=== PATIENT | male | born 1945 | race Hispanic/Latino ===

== ENCOUNTER 2018-03-26 15:16 | Inpatient (IN) | payer MEDICARE, OTHER ==
[~2018-03-26] VITALS: Ht 165.1 cm; Wt 72.6 kg
[~2018-03-26 15:16] MED LIST: CELEBREX100 MG PO; DOXAZOSIN MESYLA2 MG PO
[2018-03-26] MEDS ORDERED: FINASTERIDE5 MG PO (15:30)
[2018-03-26] MEDS ORDERED: SUPER B COMPLE1 EACH PO (15:30)
[2018-03-26] MEDS ORDERED: CITRACAL + BON1 EACH (15:30)
[2018-03-26] MEDS ORDERED: GLUCOSAMINE1000 MG (15:30)
[2018-03-26] MEDS ORDERED: ASPIRIN 81 MG CHEW TAB PO ONE (15:45)
[2018-03-26 16:09] LABS: BASOPHILS % 0.1 % (0.0-1.0); HEMATOCRIT 40.4 % (38.2-49.6); HEMOGLOBIN 12.7 g/dL (14.0-18.0); LYMPHOCYTES # (AUTO) 1.1 (1.0-3.2); LYMPHOCYTES % 14.6 % (18.0-39.1); MEAN CORPUSCULAR HGB CONC 31.4 g/dL (31-35); MONOCYTES # (AUTO) 0.4 (0.2-0.8); MONOCYTES % 5.1 % (4.4-11.3); NEUTROPHILS # (AUTO) 5.8 (2.1-6.9); NEUTROPHILS % 79.8 % (38.7-80.0); PLATELET COUNT 170 x10e3/uL (140-360); RED BLOOD COUNT 4.54 x10e6/uL (4.3-5.7); RED CELL DISTRIBUTION WIDTH 15.1 % (11.7-14.4)
--- NOTE | 2018-03-26 16:18 | Diagnostic Imaging Report ---
EXAMINATION: CHEST SINGLE (PORTABLE) COMPARISON: None INDICATION: ^CHEST PAIN ^[id number] ^1550 ^Y DISCUSSION: Frontal view of the chest obtained at 1553 hours. HEART AND MEDIASTINUM: The heart is top normal in size. There is mild aortic ectasia. LINES: None. LUNGS: The lungs are well inflated and clear. No pneumonia or pulmonary edema. PLEURA: No pleural effusion or pneumothorax. BONES AND SOFT TISSUES: Calcifications of the right rotator cuff, tendon suggestive of tendinopathy. Mild degenerative changes of the spine. The soft tissues are normal. IMPRESSION: No acute cardiopulmonary disease. Signed by: Dr. Divina Perdue MD on 03/26/2018 4:15 PM
[2018-03-26 16:21] LABS: INR 1.05; PROTHROMBIN TIME 14.7 seconds (11.9-14.5)
[2018-03-26 16:22] LABS: PARTIAL THROMBOPLASTIN TIME 31.1 seconds (23.8-35.5)
[2018-03-26 16:31] LABS: ALANINE AMINOTRANSFERASE 22 IU/L (0-55); ALBUMIN 3.8 g/dL (3.5-5.0); ALBUMIN/GLOBULIN RATIO 1.2 (0.8-2.0); ALKALINE PHOSPHATASE 41 IU/L (40-150); ANION GAP 12.1 mmol/L (8-16); BLOOD UREA NITROGEN 13 mg/dL (7-26); BUN/CREATININE RATIO 17 (6-25); CALCIUM 8.7 mg/dL (8.4-10.2); CARBON DIOXIDE 26 mmol/L (22-29); CHLORIDE 105 mmol/L (98-107); CREATINE KINASE 116 IU/L (30-200); CREATININE, SERUM 0.75 mg/dL (0.72-1.25); EST GLOMERULAR FILTRATION RATE > 60 ML/MIN (60-); GLUCOSE 95 mg/dL (74-118); POTASSIUM 4.1 mmol/L (3.5-5.1); SODIUM 139 mmol/L (136-145)
--- NOTE | 2018-03-26 17:24 | NUR ---
UA COLLECTED AND SENT TO LAB. PT'S HR DECREASING TO 38-39 BPM. PT REPORTS "NOT FEELING WELL" AND DIZZINESS. DR. VALENTIN AWARE OF BRADYCARDIA. NO NEW ORDERS AT THIS TIME.
[2018-03-26 17:31] LABS: BILIRUBIN,URINE NEGATIVE (NEGATIVE); CLARITY,URINE HAZY (CLEAR); COLOR,URINE YELLOW (YELLOW); KETONES,URINE NEGATIVE (NEGATIVE); LEUKOCYTE ESTERASE ,URINE NEGATIVE (NEGATIVE); NITRITE,URINE NEGATIVE (NEGATIVE); PROTEIN,URINE DIPSTICK NEGATIVE (NEGATIVE); URINE UROBILINOGEN 0.2 mg/dL (0.2 - 1)
[2018-03-26 17:32] LABS: BACTERIA,URINE FEW /HPF; EPITHELIAL CELLS,URINE FEW /LPF; RBC,URINE 0-5 /HPF (0-5); WBC,URINE (MAN) 0-5 /HPF (0-5)
--- NOTE | 2018-03-26 18:55 | NUR ---
PT TO BE ADMITTED TO HOSPITAL AND IS AWARE OF THIS. PENDING ADMISSION ORDERS AND ROOM ASSIGNMENT AT THIS TIME.
--- NOTE | 2018-03-26 19:11 | NUR ---
REPORT GIVEN TO LIAM NUNEZ HOUSING DEVELOPMENT SPECIALIST NURSE.
[2018-03-26 19:31] LABS: FREE THYROXINE INDEX 1.6541 (1.4-3.8); THYROID STIMULATING HORMONE 1.676 uIU/mL (0.350-4.940)
[2018-03-26] MEDS ORDERED: ONDANSETRON HCL INJ 2 MG/ML VIAL IV PRN (20:15)
[2018-03-26] MEDS ORDERED: SODIUM CHLORIDE 0.9% 1000ML 1,000 ML IV ONE ×2 (20:15→23:30)
--- OUTSIDE RECORDS SUMMARY | 2018-03-26 21:59 | XMS REPORT ---
Author Author [facility] Address Unknown Phone Unavailable Care Team Providers Care Aircraft Inspection Record Clerk Name Role Phone Mina VALENTIN Unavailable Unavailable Problems This patient has no known problems. Allergies, Adverse Reactions, Alerts This patient has no known allergies or adverse reactions. Medications This patient has no known medications. Results Test Description Test Time Test Comments Text Results Atomic Results Result Comments CHEST SINGLE (PORTABLE) 2018-03-26 16:14:00 [facility] [address] [place] [address] Patient Name: ANKUR ALVARADO MR #: [id number] : 1945 Age/Sex: 72/M Req #: [id number] Adm Physician: Ordered by: WILLIE VALENTIN MD Report #: [id number] Location: ER Room/Bed: Procedure: [id number] DX/CHEST SINGLE (PORTABLE) Exam Date: 03/26/18 Exam Time: 1550 REPORT STATUS: Signed EXAMINATION: CHEST SINGLE (PORTABLE) COMP ARISON: None INDICATION: CHEST PAIN [id number] 1550 Y DISCUSSION: Frontal view of the chest obtained at 1553 hours. HEART AND MEDIASTINUM: The heart is top normal in size. There is mild aortic ectasia. LINES: None. LUNGS: The lungs are well inflated and clear. No pneumonia or pulmonary edema. PLEURA: No pleural effusion or pneumothorax. BONES AND SOFT TISSUES: Calcifications of the right rotator cuff, tendon suggestive of tendinopathy. Mild degenerative changes of the spine. The soft tissues are normal. IMPRESSION: No acute cardiopulmonary disease. Signed by: Dr. Norris Perdue MD on 03/26/2018 4:15 PM Dictated By: NORRIS PERDUE MD [id number] Transcribed By: TAMMIE on 03/26/18 1614 COPY TO: WILLIE VALENTIN MD
[2018-03-26 22:00] VITALS: BP 147/67
--- NOTE | 2018-03-26 22:00 | NUR ---
Patient received from ER via W/C accompanied by daughter. Admission history and Initial physical assessment conducted. Patient is AAO x 3. Patient had no complaints of pain, dizziness or respiratory distress. Patient oriented to room, call light and plan of care. Bed locked and in lowest position. Bed rails up x 2 with bed alarm activated. Patient instructed to call for assistance when needed. Call light within reach.
--- NOTE | 2018-03-27 00:30 | NUR ---
Blood specimen sent to lab for analysis of cardiac enzymes.
[2018-03-27 01:24] LABS: CREATINE KINASE MB 2.5 ng/mL (0-5.0)
--- NOTE | 2018-03-27 06:05 | NUR ---
Dr. Art notified of "Stat Consult' for patient. Reason: Bradycardia.
--- NOTE | 2018-03-27 06:06 | NUR ---
Dr. Mead paged for "Stat Consult". Reason: Bradycardia and Pacemaker Evaluation. Awaiting call back.
--- NOTE | 2018-03-27 07:14 | NUR ---
Shift report given to oncoming nurse. Patient in stable condition.
[2018-03-27 08:49] VITALS: BP 131/60
[2018-03-27 12:26] VITALS: BP 137/63
--- NOTE | 2018-03-27 16:35 | Consultation ---
DATE OF CONSULTATION: March 27, 2018 CARDIOLOGY CONSULTATION REFERRING PHYSICIANS 1. Dr. Virginia Rosales. 2. Dr. Irving Corea. REASON FOR CONSULTATION: Presyncope and bradycardia. HISTORY OF PRESENT ILLNESS: Mr. George is a 72-year-old man with history of rheumatoid arthritis and BPH who presents with episodes of lightheadedness, worse with standing up and ambulation, noted to have heart rate in the 30s to 40s with marked sinus bradycardia noted on EKG. He denies any use of chronotropic negative medications. Overnight, he has remained with persistent bradycardia. He has no current complaints. Denies any chest pain or shortness of breath. REVIEW OF SYSTEMS: A 12-system review is negative except for as noted above. ALLERGIES: NO KNOWN DRUG ALLERGIES. PAST MEDICAL HISTORY: Significant for BPH and rheumatoid arthritis. SOCIAL HISTORY: Denies smoking, alcohol, or drugs. FAMILY HISTORY: Noncontributory. PHYSICAL EXAMINATION VITAL SIGNS: Temperature 98 degrees, heart rate 47, blood pressure 131/60, respiratory rate 18, O2 sat 98% on room air and telemetry has marked sinus bradycardia. BMI 25.2. GENERAL: In no acute distress, alert. NECK: No JVD. CHEST: Clear to auscultation. CARDIOVASCULAR: Regular rate and rhythm. Normal S1 and S2. No S3, no S4. No murmurs, no rubs. ABDOMEN: Soft, nontender, nondistended. EXTREMITIES: Warm extremities. No edema. MEDICATIONS: Reviewed, p.r.n. Zofran STUDIES: Reviewed. EKG as above. Potassium 4.1, sodium 139, chloride 105, bicarbonate 26, BUN 13, creatinine 0.76, glucose 95. White blood cells 9.3, hemoglobin 12.7, and platelets 170. PT 14.7, PTT 31.1, INR 1.05. AST 24, ALT 22, total bilirubin 0.67, and alk phos 41. ASSESSMENT 1. Symptomatic marked sinus bradycardia. 2. Benign prostatic hypertrophy. 3. Rheumatoid arthritis. RECOMMENDATIONS 1. Avoid chronotropic negative medications. 2. Telemetry while in-house. 3. EP has been consulted for consideration of pacemaker placement. 4. Atropine p.r.n. 5. Obtain electrocardiogram. Job#: [id number] DANIEL
[2018-03-27] MEDS ORDERED: ATROPINE SULFATE INJ 0.4 MG/ML VIAL IV PRN (16:45)
[2018-03-27 17:26] VITALS: BP 138/71
--- NOTE | 2018-03-27 19:30 | NUR ---
Patient received sitting up in bed. AAO x 3. Patient had no complaints of pain. Respirations even and non-labored. Call light within reach.
--- NOTE | 2018-03-27 19:32 | Consultation ---
DATE OF CONSULTATION: March 27, 2018 REASON FOR CONSULTATION: Symptomatic bradycardia. CHIEF COMPLAINT: Bradycardia, symptomatic. Mr. George is a pleasant 72-year-old gentleman who presented with profound dizziness and bradycardia. No other cardiac history. His heart rate was in the 40s for the most part. Cardiology and EP has been consulted. PAST MEDICAL HISTORY: Arthritis, dizziness, sinus bradycardia. SOCIAL HISTORY: Lives with . No drugs or smoking. FAMILY HISTORY: Negative for sudden or atrial fibrillation. REVIEW OF SYSTEMS: As above and otherwise negative for fevers, chills, loss of vision, blurry vision, ear pain, ear discharge, headache, numbness, chest pain, palpitation, cough, sputum, nausea, vomiting, dysuria, frequency, rash, bruise, bleeding, clots, anxiety, depression, heat or cold intolerance. PHYSICAL EXAMINATION VITAL SIGNS: Blood pressure 148/79, heart rate is currently 55 beats per minute. GENERAL: Patient is lying in bed, in no apparent distress. NECK: No lymphadenopathy. Thyroid exam is normal. CARDIOVASCULAR: S1, S2. LUNGS: Clear bilaterally. ABDOMEN: Soft, benign. EXTREMITIES: Warm and dry. NEURO: Nonfocal. SKIN: No new rash. PSYCH: No anxiety or depression. EKG shows sinus bradycardia. AZ interval 146. ASSESSMENT AND PLAN: A 72-year-old gentleman with sick sinus syndrome, severe symptomatic bradycardia, not on any AV henok blocking agents. He will benefit from a pacemaker. I will discuss this with Dr. Art, which I think he is on-board. I discussed this with patient and his and explained the risks and benefits. We will set up for dual-chamber permanent pacemaker. Thank you very much. Job#: [id number] SARY
[2018-03-27 20:00] VITALS: BP 118/58
[2018-03-28] VITALS (8 sets, daily range): BP systolic 118–145; BP diastolic 58–67
[2018-03-28] MEDS ORDERED: FENTANYL CITRATE/PF 100MCG/2 ML INJ ONE (15:51)
[2018-03-28] MEDS ORDERED: SODIUM CHLORIDE 0.9% 500ML 500 ML ONE (15:51)
[2018-03-28] MEDS ORDERED: LIDOCAINE HCL 1% LOCAL INJ 20 ML VIAL ONE (15:51)
[2018-03-28] MEDS ORDERED: MIDAZOLAM HCL 2 MG/2 ML VIAL ONE (15:51)
[2018-03-28] MEDS ORDERED: SODIUM CHLORIDE 0.9% 1000ML 2,000 ML ONE (15:51)
[2018-03-28] MEDS ORDERED: BACITRACIN 50,000 UNIT VIAL ONE (15:54)
--- NOTE | 2018-03-28 16:09 | NUR ---
Patient to process laboratory specialist at this time.
[2018-03-28] MEDS ORDERED: IOPAMIDOL 300MG/ML 50ML INFUS..BTL IV ONE (16:23)
[2018-03-28] MEDS ORDERED: SODIUM CHLORIDE 0.9% 50ML 50 ML ONE (16:24)
[2018-03-28] MEDS ORDERED: CEFAZOLIN SOD 1 GM VIAL ONE (16:24)
[2018-03-28] MEDS ORDERED: HYDRALAZINE HCL 20 MG/ML VIAL ONE (16:47)
--- NOTE | 2018-03-28 17:02 | Operative Report ---
DATE OF PROCEDURE: March 28, 2018 REASON FOR PROCEDURE: Sick sinus syndrome, severe symptomatic nonreversible bradycardia. PROCEDURE PERFORMED: Dual chamber permanent pacemaker placement. SEDATION: Moderate sedation with 2 of Versed and 50 of fentanyl for 45 minutes while O2 saturation and blood pressure were being monitored by me and the circulating nurse. PROCEDURE IN DETAIL: The patient was brought into the lab in a fasting state. Left chest prepped and draped in a sterile fashion. Conscious sedation was administered. Vancomycin 1 g was given. A 3 cm skin incision was made. Subcutaneous tissue and pocket were formed. Two guidewires were inserted in the axillary vein using the modified Seldinger technique. No complications. Pacing lead advanced to the RV apex and fixed in place. Sensing 6. Threshold 1.2. Impedance 580 Ohms. RV lead advanced to the right atrial appendage. Sensing 2.1. Threshold 1.5. Impedance 450 Ohms. Both leads sutured to the fascia with 0 silk. Pocket profusely irrigated with antibiotic solution. Leads were connected to [employer]icos dual chamber permanent pacemaker, serial number [id number]. Generator placed inside the pocket and sutured to the fascia using 0 silk. Subcutaneous tissue was approximated with 2-0 Vicryl in 2 layers. Skin was approximated using 4-0 Monocryl and Dermabond. The patient tolerated the procedure well. No complications. CONCLUSION: Dual chamber permanent pacemaker placement with moderate sedation. Clinic followup in 2 weeks. Job#: [id number] RI MTDD
--- NOTE | 2018-03-28 18:10 | NUR ---
Patient received back from the center medical and lab director at this time. Arm sling in place on the left arm. Dressing to left upper chest is CDI. Patient has no complaints of pain. patient immediately went to the restroom with wifes assistance. Patient is AOx3. Educated patient on arm care and sling. Patient and verbalized understanding.
--- NOTE | 2018-03-28 19:00 | NUR ---
Received pt sitting up in chair with family at bedside. Has dressing to L chest c,d,i abd L arm sling. Denies pain at this time. No s/s of resp distress at this time. Call light within reach and instructed to call for assistance.
--- NOTE | 2018-03-28 20:42 | Diagnostic Imaging Report ---
EXAMINATION: CHEST SINGLE (PORTABLE) COMPARISON: 03/26/2018. INDICATION: ^Post Dual Chamber PPM ^[id number] ^1810 DISCUSSION: Interval placement of a dual lead left-sided cardiac pacemaker. HEART AND MEDIASTINUM: The heart is top normal in size. There is mild aortic ectasia. LINES: None. LUNGS: The lungs are well inflated and clear. No pneumonia or pulmonary edema. PLEURA: No pleural effusion or pneumothorax. BONES AND SOFT TISSUES: Calcifications of the right rotator cuff, tendon suggestive of tendinopathy. Mild degenerative changes of the spine. The soft tissues are normal. IMPRESSION: Status post left sided dual lead cardiac pacemaker. No acute thoracic abnormality. Signed by: Dr. Tabby Go M.D. on 03/28/2018 8:39 PM
--- NOTE | 2018-03-28 20:50 | Progress Note ---
DATE: CARDIOLOGY PROGRESS NOTE SUBJECTIVE: No complaints. Pacemaker today. PHYSICAL EXAMINATION: VITAL SIGNS: Temperature 96.7, heart rate 73, blood pressure 126/65, respiratory rate 18, O2 sat 99%. GENERAL: In no acute distress. NECK: No JVD. CHEST: Clear to auscultation. CARDIOVASCULAR: Regular rate and rhythm. Normal S1 and S2. ABDOMEN: Soft. EXTREMITIES: No edema. Warm distal extremities. MEDICATIONS: Reviewed. On Zofran and atropine p.r.n. STUDIES: Reviewed. Creatinine 0.7. Hemoglobin 12, white blood cells 7, platelets 170,000. Normal transaminases. ASSESSMENT: 1. Symptomatic marked sinus bradycardia, undergoing pacemaker placement today. 2. Rheumatoid arthritis reported. 3. Benign prostatic hypertrophy. RECOMMENDATIONS: Placement for pacemaker ongoing today. Will follow up with interrogation and follow up x-ray postprocedure. If all looks well, anticipate discharge tomorrow. Job#: [id number]
--- NOTE | 2018-03-29 00:12 | NUR ---
Pt in bed with eyes closed resting well. Family at bedside. Call light within reach.
[2018-03-29 00:55] VITALS: BP 152/71
[2018-03-29 06:41] VITALS: BP 148/74
[2018-03-29 08:00] VITALS: BP 114/58
[2018-03-29 08:19] VITALS: BP 114/58
[2018-03-29 13:09] VITALS: BP 133/74
--- NOTE | 2018-03-29 15:14 | Discharge Summary ---
HOSPITAL COURSE: Mr. George is a 72-year-old man with history of arthritis and sinus bradycardia, who was being followed up by [employer]. A few days before admission, he started feeling very dizzy, so he decided to come to the emergency room where he was found to be very bradycardic. He was seen by [employer], had a permanent pacemaker placed yesterday and the plan is to discharge him home if it is okay with [employer] today. PHYSICAL EXAM GENERAL: He is awake and alert. He is feeling better. VITAL SIGNS: Temperature is 97.1, blood pressure 133/74. HEART: Regular rate, 60 per minute. LUNGS: Clear to auscultation. ABDOMEN: Soft. Pacemaker area is under dressing. BLOOD WORK: Potassium 4.1, creatinine 0.75, glucose is 95. White count 7.31, hemoglobin 12.7, hematocrit 40.4. DISCHARGE DIAGNOSES 1. Sick sinus syndrome, status post pacemaker placement. 2. Severe symptomatic bradycardia, status post pacemaker. 3. Dizziness, resolved. 4. Arthritis. PLAN AT THE PRESENT TIME: To discharge the patient home if okay with consultants. He is going to be on cephalexin 500 mg 3 times a day for 5 days and Tylenol No. 3 for pain. He needs followup with me in 1 week. Follow up with [employer] operations as directed by him. He is to call me or come back to the emergency room if any recurrent problem. Please see home medication reconciliation list. All this was discussed with patient. All questions were answered to satisfaction. Job#: [id number] MIRZA
[2018-03-29 16:40] VITALS: BP 142/65
[2018-03-29] MEDS ORDERED: TYLENOL WITH C1 EACH PO (17:50)
[2018-03-29] MEDS ORDERED: CEPHALEXIN500 MG PO (17:50)
--- NOTE | 2018-03-30 00:11 | Progress Note ---
DATE: March 29, 2018 CARDIOLOGY PROGRESS NOTE SUBJECTIVE: No complaints today. Status post pacemaker. Feels much better. OBJECTIVE VITAL SIGNS: Temperature 98 degrees. Heart rate 61, blood pressure 142/65, respiratory rate 18, O2 sat 93%. GENERAL: In no acute distress, alert. NECK: No JVD. CHEST: Clear to auscultation. CARDIOVASCULAR: Regular rate and rhythm. Normal S1, S2. No S3 or S4. ABDOMEN: Soft, nontender. EXTREMITIES: No edema. SKIN: Pacemaker pocket site looks okay. CARDIOVASCULAR MEDICATIONS: Reviewed. Atropine p.r.n. can be discontinued now. LABORATORY STUDIES: Reviewed. Potassium 4.1, creatinine 0.7. Hemoglobin 12, platelets 170,000, white blood cell 7.3. INR 1. ASSESSMENT 1. Symptomatic marked sinus bradycardia, now status post dual-chamber permanent pacemaker placement. 2. Rheumatoid arthritis. 3. BPH. RECOMMENDATIONS: Okay to discharge from a cardiovascular standpoint. Pacemaker has been interrogated today and functioning well. The patient has noted symptomatic improvement status post pacemaker placement. No pneumothorax on chest x-ray. Outpatient followup with EP in 2 weeks and cardiology in 6 to 8 weeks. Job#: [id number]
== END 2018-03-29 18:09 | disposition home or self-care (01) | DRG 244 ==
LOC: ER 15:16 → ERHOLD 21:55 → MED/SURG2 22:07
PROVIDERS: ADMIT Internal Medicine; ATTEND Internal Medicine
PROC: 0JH606Z Insertion of Pacemaker, Dual Chamber into Chest Subcutaneous Tissue and Fascia, Open Approach (ICD-10-PCS; principal; 2018-03-28)
PROC: 02H63JZ Insertion of Pacemaker Lead into Right Atrium, Percutaneous Approach (ICD-10-PCS; 2018-03-28)
PROC: 02HK3JZ Insertion of Pacemaker Lead into Right Ventricle, Percutaneous Approach (ICD-10-PCS; 2018-03-28)
DX: I49.5 Sick sinus syndrome (principal); R00.1 Bradycardia, unspecified; M06.9 Rheumatoid arthritis, unspecified; M19.90 Unspecified osteoarthritis, unspecified site
CPT/HCPCS: 33208; 36415; 71045; 80053; 81001; 82550; 82553; 83880; 84436; 84443; 84479; 84484; 85025; 85610; 85730; 93005; 99283; C1785; C1898; J0360; J0690; J2001; J2250; J7030; J7040

== ENCOUNTER 2018-05-06 19:45 | Emergency (ER) | payer MEDICARE ==
[~2018-05-06] VITALS: Ht 165.1 cm; Wt 72.6 kg
[~2018-05-06 19:45] MED LIST changes: +CEPHALEXIN500 MG PO; +CITRACAL + BON1 EACH; +FINASTERIDE5 MG PO; +GLUCOSAMINE1000 MG; +SUPER B COMPLE1 EACH PO; +TYLENOL WITH C1 EACH PO
--- OUTSIDE RECORDS SUMMARY | 2018-05-06 19:50 | XMS REPORT | Summary of Care ---
Author Author [facility] Address Unknown Phone Unavailable Encounter DAVE Calvillo(ANA) [id number] Date(s): 11/19/14 - 12/18/14 [facility] Final: Osteoarthrosis, Localized, Primary, Involving Lower Leg Final: Stiffness of Joint, Not Elsewhere Classified, Involving Lower Leg Final: Knee Joint Replaced by Other Means Final: Muscle Weakness (Generalized) Final: Abnormality of Gait Final: Edema Discharge Disposition: Home Attending Physician: Mehdi Baron Vital Signs No data available for this section Problem List Condition Effective Dates Status Health Status Informant Knee joint Active pain(Confirmed)1 Osteoarthritis(Confi Resolved rmed) Prostate Resolved enlargement(Confirme d) Seasonal Resolved allergies(Confirmed) 1left knee Allergies, Adverse Reactions, Alerts Substance Reaction Severity Status NKDA Active Medications No data available for this section Results No data available for this section Immunizations Vaccine Date Refusal Reason pneumococcal 23-valent vaccine 09/12/14 Procedures Procedure Date Related Diagnosis Body Site Meniscectomy of knee Social History Social History Type Response Alcohol Never Smoking Status Never smoker; Exposure to Tobacco Smoke None; Cigarette Smoking Last 365 Days No; Reg Smoking Cessation Counseling No Assessment and Plan No data available for this section
--- OUTSIDE RECORDS SUMMARY | 2018-05-06 19:50 | XMS REPORT | Summary of Care ---
Author Author [facility] Address Unknown Phone Unavailable Encounter HQ Encntr_jey(FIN) [id number] Date(s): 10/19/14 - 11/17/14 [facility] Discharge Disposition: Home Attending Physician: Mehdi Baron [...]
--- OUTSIDE RECORDS SUMMARY | 2018-05-06 19:50 | XMS REPORT | Continuity of Care Document ---
Author Author [facility] Interface Address Unknown Phone Unavailable Problems Problem Status Onset Date Classification Date Reported Comments Source CELLULITS TO LOWER EXTREMITY Active 09/19/2014 [facility] PAIN Active 09/18/2014 [facility] [id number] Active 08/21/2014 [facility] UNK Active 08/21/2014 [facility] Final: Osteoarthrosis, Localized, Primary, Involving Lower Leg 12/21/2014 [facility] Final: Stiffness of Joint, Not Elsewhere Classified, Involving Lower Leg 12/21/2014 [facility] Final: Knee Joint Replaced by Other Means 12/21/2014 [facility] Final: Muscle Weakness 12/21/2014 [facility] Final: Abnormality of Gait 12/21/2014 [facility] Final: Edema 12/21/2014 [facility] Knee joint pain<sup>1</sup> Active Problem 01/25/2015 left knee [facility] Osteoarthritis Resolved Problem 01/25/2015 [facility] Prostate enlargement Resolved Problem 01/25/2015 [facility] Seasonal allergies Resolved Problem 01/25/2015 [facility] Bradycardia Active Problem 03/30/2018 [facility] Weakness Active Problem 03/30/2018 [facility] CELLULITIS OF LEG Active [facility] LT KNEE Active [facility] S/P TKR Active [facility] LOC PRIM OSTEOART-L/LEG Active [facility] SWELLING OF LIMB Active [facility] Medications Medication Details Route Status Patient Instructions Ordering Provider Order Date Source Sodium Chloride 0.9% IV IV, 30 ml/hr, PRN, PRN Blood Transfusion, Start date: 09/19/14 22:22:00, Duration: 1, 100 ml No Longer Active 09/20/2014 [facility] normal saline 0.9% IV 100 mL 100 mL, Rate: 100 ml/hr, Infuse over: 1 hr, Route: IV, Dosing Weight 73.636 kg, Total Volume: 100, Priority: Routine, Start date: 09/19/14 22:17:00, Duration: 1 doses or times, Stop date: 09/19/14 23:16:00 Inactive 09/20/2014 [facility] Diphenhydramine 25 mg, 1 tab, Route: PO, Drug form: TAB, TID, Dosing Weight 73.636, kg, PRN Allergic reaction, Start date: 09/19/14 21:25:00, Duration: 30 day, Stop date: 10/19/14 21:24:00 No Longer Active 09/20/2014 [facility] Ambien 5 mg, 1 tab, Route: PO, Drug form: TAB, Bedtime, PRN Sleep, Start date: 09/19/14 21:21:00, Duration: 30 day, Stop date: 10/19/14 21:20:00Notes: (Same As: Ambien) No Longer Active 09/20/2014 [facility] Clindamycin 900 mg, 50 mL, Route: IVPB, Drug form: INJ, [id number], Dosing Weight 73.636, kg, Start date: 09/19/14 21:00:00, Duration: 30 day, Stop date: 10/19/14 13:00:00 No Longer Active 09/20/2014 [facility] Vancomycin 1 gm, 200 mL, Route: IVPB, Drug form: INJ, [id number], Dosing Weight 73.636, kg, Start date: 09/19/14 21:00:00, Duration: 30 day, Stop date: 10/19/14 9:00:00Notes: TIME CRITICAL MEDICATION No Longer Active 09/20/2014 [facility] Lovenox 30 mg, 0.3 mL, Route: SUB-Q, Drug form: INJ, [id number], Dosing Weight 73.636, kg, Start date: 09/19/14 21:00:00, Duration: 30 day, Stop date: 10/19/14 9:00:00Notes: (Same as: Lovenox) No Longer Active 09/20/2014 [facility] Dilaudid 1 mg, 1 mL, Route: IV, Drug form: INJ, Q6H, Dosing Weight 73.636, kg, PRN Pain Score 6-10, Start date: 09/19/14 20:48:00, Duration: 30 day, Stop date: 10/19/14 20:47:00 No Longer Active 09/20/2014 [facility] Valium 5 mg, 1 mL, Route: IV, Drug form: INJ, Q6H, Dosing Weight 73.636, kg, PRN Spasm, Start date: 09/19/14 20:42:00, Duration: 30 day, Stop date: 10/19/14 20:41:00Notes: (Same as: Valium) No Longer Active 09/20/2014 [facility] Lunesta 3 mg, Route: PO, Bedtime, Dosing Weight 73.636, kg, PRN as needed for insomnia, Start date: 09/19/14 20:41:00, Duration: 30 day, Stop date: 10/19/14 20:40:00 Inactive 09/20/2014 [facility] Acetaminophen 325 MG / Hydrocodone Bitartrate 7.5 MG Oral Tablet [[place] 7.5/325] 2 tab, Route: PO, Drug Form: TAB, Dosing Weight 73.636, kg, Q6H, PRN Pain Score 7-10, Start date: 09/19/14 20:38:00, Duration: 30 day, Stop date: 10/19/14 20:37:00Notes: Same as [place] 325-7.5mg Do not exceed 4gm/day of acetaminophen. No Longer Active 09/20/2014 [facility] Acetaminophen 325 MG / Hydrocodone Bitartrate 7.5 MG Oral Tablet [[place] 7.5/325] 1 tab, Route: PO, Drug Form: TAB, Dosing Weight 73.636, kg, Q6H, PRN Pain Score 1-5, Start date: 09/19/14 20:37:00, Duration: 30 day, Stop date: 10/19/14 20:36:00Notes: Same as [place] 325-7.5mg Do not exceed 4gm/day of acetaminophen. No Longer Active 09/20/2014 [facility] Dilaudid 1 mg, 1 mL, Route: IV, Drug form: INJ, Q4H, Dosing Weight 73.636, kg, PRN Pain Score 1-5, Start date: 09/19/14 20:36:00, Duration: 30 day, Stop date: 10/19/14 20:35:00 No Longer Active 09/20/2014 [facility] cefepime 1 gm, Route: IVPB, [id number], Dosing Weight 72.273, kg, (CrCl >/=50 ml/min), Start date: 09/12/14 20:00:00, Duration: 30 day, Stop date: 10/12/14 12:00:00Notes: (Same As: Maxipime) MEDICATION WASTE Product Size: 1000 mg Product Wasted: ___ mg No Longer Active 09/13/2014 [facility] Dilaudid 1 mg, 1 mL, Route: IV, Drug form: INJ, Q4H, Dosing Weight 72.273, kg, PRN Pain Score 7-10, Start date: 09/12/14 12:43:00, Duration: 30 day, Stop date: 10/12/14 12:42:00 No Longer Active 09/12/2014 [facility] Acetaminophen 325 MG / Hydrocodone Bitartrate 7.5 MG Oral Tablet [[place] 7.5/325] 2 tab, Route: PO, Drug Form: TAB, Dosing Weight 72.273, kg, Q4H, PRN Pain Score 7-10, Start date: 09/12/14 12:43:00, Duration: 30 day, Stop date: 10/12/14 12:42:00 Inactive 09/12/2014 [facility] pneumococcal capsular polysaccharide type 1 vaccine / pneumococcal capsular polysaccharide type 10A vaccine / pneumococcal capsular polysaccharide type 11A vaccine / pneumococcal capsular polysaccharide type 12F vaccine / pneumococcal capsular polysacchar 0.5 mL, Route: IM, Drug Form: INJ, Daily, Start date: 09/12/14 9:00:00, Duration: 1 doses or times, Stop date: 09/12/14 9:00:00Notes: (Same as: Pneumovax 23) Refrigerate Inactive 09/12/2014 [facility] Lunesta 3 mg, Route: PO, Bedtime, Dosing Weight 72.273, kg, Start date: 09/11/14 21:00:00, Duration: 30 day, Stop date: 10/10/14 21:00:00 Inactive 09/12/2014 [facility] Enoxaparin 30 mg, 0.3 mL, Route: SUB-Q, Drug form: INJ, [id number], Dosing Weight 72.273, kg, Start date: 09/11/14 21:00:00, Duration: 30 day, Stop date: 10/11/14 9:00:00Notes: (Same as: Lovenox) No Longer Active 09/12/2014 [facility] Ambien 5 mg, 1 tab, Route: PO, Drug form: TAB, Bedtime, PRN Sleep, Start date: 09/11/14 17:49:00, Duration: 30 day, Stop date: 10/11/14 17:48:00Notes: (Same As: Ambien) No Longer Active 09/11/2014 [facility] ceFAZolin (SCIP) 1 gm, 100 mL, Route: IVPB, Drug form: INJ, [id number], Dosing Weight 72.273, kg, Start date: 09/11/14 14:00:00, Duration: 3 doses or times, Stop date: 09/12/14 2:00:00 No Longer Active 09/11/2014 [facility] Docusate 100 mg, 1 cap, Route: PO, Drug form: CAP, BID, Dosing Weight 72.273, kg, Start date: 09/11/14 9:00:00, Duration: 30 day, Stop date: 10/10/14 17:00:00Notes: (Same as: Colace) (Do Not Crush) No Longer Active 09/11/2014 [facility] Enoxaparin 30 mg, Route: SUB-Q, Drug form: INJ, [id number], Dosing Weight 72.273, kg, Start date: 09/11/14 9:00:00, Duration: 30 day, Stop date: 10/10/14 21:00:00 Inactive 09/11/2014 [facility] Morphine 4 mg, Route: IVP, Q5Min, Dosing Weight 72.273, kg, PRN Pain Score 7-10, Start date: 09/11/14 8:49:00, Duration: 3 doses or times, Stop date: Limited # of times Inactive 09/11/2014 [facility] Meperidine 12.5 mg, Route: IVP, Q30Min, Dosing Weight 72.273, kg, PRN Other -See Comment, For shivering, Start date: 09/11/14 8:49:00, Duration: 2 doses or times, Stop date: Limited # of times Inactive 09/11/2014 [facility] Diphenhydramine 12.5 mg, Route: IVP, Drug form: INJ, Q6H, Dosing Weight 72.273, kg, PRN Itching, Start date: 09/11/14 8:49:00, Duration: 30 day, Stop date: 10/11/14 8:48:00 Inactive 09/11/2014 [facility] Glycopyrrolate 0.2 mg, Route: IVP, Q5Min, Dosing Weight 72.273, kg, PRN Bradycardia, Start date: 09/11/14 8:49:00, Duration: 3 doses or times, Stop date: Limited # of times Inactive 09/11/2014 [facility] Naloxone 0.04 mg, Route: IVP, Q2MIN, Dosing Weight 72.273, kg, PRN Narcotic Reversal, Start date: 09/11/14 8:49:00, Duration: 8 doses or times, Stop date: Limited # of times Inactive 09/11/2014 [facility] Flumazenil 0.2 mg, Route: IVP, PRN, Dosing Weight 72.273, kg, PRN Benzodiazepine Reversal, Initial dose, Start date: 09/11/14 8:49:00, Duration: 30 day, Stop date: 10/11/14 8:48:00 Inactive 09/11/2014 [facility] Promethazine 6.25 mg, Route: IVPB, ONCE, Dosing Weight 72.273, kg, PRN Nausea & Vomiting, Start date: 09/11/14 8:49:00 Inactive 09/11/2014 [facility] Ondansetron 4 mg, Route: IVP, ONCE, Dosing Weight 72.273, kg, PRN Nausea & Vomiting, Start date: 09/11/14 8:49:00 Inactive 09/11/2014 [facility] Hydromorphone 0.5 mg, Route: IVP, Q5Min, Dosing Weight 72.273, kg, PRN Pain Score 7-10, Start date: 09/11/14 8:49:00, Duration: 4 doses or times, Stop date: Limited # of times Inactive 09/11/2014 [facility] Fentanyl 25 microgram, Route: IVP, Q5Min, Dosing Weight 72.273, kg, PRN Pain Score 4-6, Start date: 09/11/14 8:49:00, Duration: 4 doses or times, Stop date: Limited # of times Inactive 09/11/2014 [facility] Ketorolac 30 mg, Route: IVP, ONCE, Dosing Weight 72.273, kg, Start date: 09/11/14 8:49:00, Duration: 1 doses or times, Stop date: 09/11/14 8:49:00 Inactive 09/11/2014 [facility] Hydralazine 10 mg, Route: IVP, Q20Min, Dosing Weight 72.273, kg, PRN Elevated BP, Start date: 09/11/14 8:49:00, Duration: 2 doses or times, Stop date: Limited # of times Inactive 09/11/2014 [facility] Oxycodone 10 mg, Route: PO, Drug form: TAB, Q4H, Dosing Weight 72.273, kg, PRN Pain Score 7-10, Start date: 09/11/14 8:49:00, Duration: 30 day, Stop date: 10/11/14 8:48:00 Inactive 09/11/2014 [facility] Metoprolol 1 mg, Route: IVP, Q5Min, Dosing Weight 72.273, kg, PRN Other -See Comment, Start date: 09/11/14 8:49:00, Duration: 5 doses or times, Stop date: Limited # of times Inactive 09/11/2014 [facility] Hydromorphone 15 mg, 30 mL, Route: IV, Initial Loading Dose: 0 mg, [employer] FINAL Dose: 0.2 mg, [employer] FINAL Lockout: 8 minutes, Continuous Basal Rate: 0 mg, 4 Hour Limit (In MG): 6, Drug Form: INJ, Continuous, Start date: 09/11/14 8 :30:00, Duration: 30 day, Stop date: 10/11/14 8:29:00Notes: (Same as: Dilaudid) conc=0.5 mg/ml Hydromorphone [employer] FINAL Dose: ;Delay: ;Basal: No Longer Active 09/11/2014 [facility] Naloxone 0.04 mg, 0.1 mL, Route: IVP, Drug form: INJ, Q2MIN, Dosing Weight 72.273, kg, PRN Narcotic Reversal, Start date: 09/11/14 8:30:00, Duration: 30 day, Stop date: 10/11/14 8:29:00Notes: Same as Narcan No Longer Active 09/11/2014 [facility] Diphenhydramine 12.5 mg, 0.5 tab, Route: PO, Drug form: TAB, Q6H, Dosing Weight 72.273, kg, PRN Itching, Start date: 09/11/14 8:30:00, Duration: 30 day, Stop date: 10/11/14 8:29:00 No Longer Active 09/11/2014 [facility] Al hydroxide/Mg hydroxide/simethicone 200 mg-200 mg-20 mg/5 mL oral suspension 30 mL, Route: PO, Drug Form: SUSP, Dosing Weight 72.273, kg, Q4H, PRN Indigestion, Start date: 09/11/14 8:30:00, Duration: 30 day, Stop date: 10/11/14 8:29:00Notes: (aluminum hydroxide-magnesium hyd-simethicone [phone]/5ml 30 ml ud CANDIS) No Longer Active 09/11/2014 [facility] Ondansetron 4 mg, 2 mL, Route: IVP, Drug form: INJ, Q8H, Dosing Weight 72.273, kg, PRN Nausea & Vomiting, Start date: 09/11/14 8:30:00, Duration: 30 day, Stop date: 10/11/14 8:29:00Notes: (Same as: Zofran) MEDICATION WASTE Product Size: 4 mg Product Wasted: ___ mg No Longer Active 09/11/2014 [facility] Acetaminophen 325 MG / Hydrocodone Bitartrate 7.5 MG Oral Tablet [[place] 7.5/325] 1 tab, Route: PO, Drug Form: TAB, Dosing Weight 72.273, kg, Q4H, PRN Pain Score 4-6, Start date: 09/11/14 8:30:00, Duration: 30 day, Stop date: 10/11/14 8:29:00Notes: Same as [place] 325-7.5mg Do not exceed 4gm/day of acetaminophen. No Longer Active 09/11/2014 [facility] Tylenol 650 mg, 2 tab, Route: PO, Drug form: TAB, Q6H, Dosing Weight 72.273, kg, PRN For Temp > 100.4 F, Start date: 09/11/14 8:30:00, Duration: 30 day, Stop date: 10/11/14 8:29:00Notes: Do not exceed 4 gm/day. (Same as: Tylenol) No Longer Active 09/11/2014 [facility] Lactated Ringers IV 1,000 mL 1,000 mL, Rate: 75 ml/hr, Infuse over: 13.3 hr, Route: IV, Dosing Weight 72.273 kg, Total Volume: 1,000, Start date: 09/11/14 8:30:00, Duration: 30 day, Stop date: 10/11/14 8:29:00 No Longer Active 09/11/2014 [facility] Calcium Chloride 0.0014 MEQ/ML / Potassium Chloride 0.004 MEQ/ML / Sodium Chloride 0.103 MEQ/ML / Sodium Lactate 0.028 MEQ/ML Injectable Solution 1,000 mL, Rate: 25 ml/hr, Infuse over: 40 hr, Route: IV, Dosing Weight 72.273 kg, Total Volume: 1,000, Start date: 09/11/14 8:16:00, Duration: 30 day, Stop date: 10/11/14 8:15:00 Inactive 09/11/2014 [facility] Ancef 2 gm, Route: IVPB, ONCE, Dosing Weight 72.273, kg, Start date: 09/11/14 7:31:00, Duration: 1 doses or times, Stop date: 09/11/14 7:31:00 Inactive 09/11/2014 [facility] Diazepam 5 MG Oral Tablet [Valium] 5 mg=1 tab, PO, QID, PRN Spasm, # 30 tab, 0 Refill(s) Active 09/11/2014 [facility] Cephalexin 500 MG Oral Capsule [Keflex] 500 mg=1 cap, PO, QID, X 10 day, # 40 cap, 0 Refill(s) Active 09/11/2014 [facility] 0.3 ML Enoxaparin sodium 100 MG/ML Prefilled Syringe [Lovenox] 30 mg, SUB-Q, Q12H, X 14 day, # 28 inj, 0 Refill(s) Active 09/11/2014 [facility] Vitamin D3 0 Refill(s) Active 08/30/2014 [facility] doxazosin 4 mg oral tablet 4 mg=1 tab, PO, Daily, # 30 tab, 0 Refill(s) Active 08/30/2014 [facility] celecoxib 200 MG Oral Capsule [Celebrex] 200 mg=1 cap, PO, Daily, # 30 cap, 0 Refill(s) Active 08/30/2014 [facility] Acetaminophen With Codeine (Tylenol With Codeine #3 Tablet) 1 Each Tablet Every 6 Hours for Pain Active [facility] B Complex With Vitamin C (Super B Complex-Vitamin C) 1 Each Tablet Daily Active [facility] Calcium Crb&Cit/D3/Min34/Ric (Citracal + Bone Density Tablet) 1 Each Tablet Active [facility] Celecoxib (Celebrex*) 100 Mg Capsule Daily Active [facility] Cephalexin 500 Mg Capsule Three Times A Day Active [facility] Doxazosin Mesylate 2 Mg Tablet Daily Active [facility] Finasteride 5 Mg Tablet Daily Active [facility] Glucosamine Sulfate 2KCL (Glucosamine) 1,000 Mg Tablet Active [facility] Allergies, Adverse Reactions, Alerts Substance Category Reaction Severity Reaction type Status Date Reported Comments Source Immunizations Immunization Date Given Site Status Last Updated Comments Source pneumococcal 23-valent vaccine 09/12/2014 Right deltoid completed [facility] Results Order Name Results Value Reference Range Date Interpretation Comments Source Serum or plasma creatine kinase measurement (enzymatic activity/volume) 85 30 - 200 03/27/2018 [facility] Serum or plasma creatine kinase MB measurement (mass/volume) 2.50 0 - 5.0 03/27/2018 [facility] Troponin I measurement by highly sensitive enzyme immunoassay 0.016 0 - 0.300 03/27/2018 [facility] Urine color determination YELLOW YELLOW 03/26/2018 [facility] Urine clarity HAZY CLEAR 03/26/2018 [facility] Specific gravity of Urine by Test strip 1.015 1.010 - 1.025 03/26/2018 [facility] Urine pH measurement by automated test strip 7 5 - 7 03/26/2018 [facility] Urine leukocyte esterase detection by dipstick NEGATIVE NEGATIVE 03/26/2018 [facility] Urine nitrite detection NEGATIVE NEGATIVE 03/26/2018 [facility] Urine protein measurement by test strip (mass/volume) NEGATIVE NEGATIVE 03/26/2018 [facility] Urine glucose detection NEGATIVE NEGATIVE 03/26/2018 [facility] Urine ketones detection by automated test strip NEGATIVE NEGATIVE 03/26/2018 [facility] Urine urobilinogen measurement by test strip (mass/volume) 0.2 0.2 - 1 03/26/2018 [facility] Urine total bilirubin measurement (mass/volume) NEGATIVE NEGATIVE 03/26/2018 [facility] Urine erythrocytes detection NEGATIVE NEGATIVE 03/26/2018 [facility] Automated urine sediment leukocyte count by microscopy (number/high power field) 0-5 0 - 5 03/26/2018 [facility] Erythrocytes detection in urine sediment by light microscopy 0-5 0 - 5 03/26/2018 [facility] Bacteria detection in urine sediment by light microscopy FEW NONE 03/26/2018 [facility] Epithelial cells detection in urine sediment by light microscopy FEW NONE 03/26/2018 [facility] Blood leukocytes automated count (number/volume) 7.31 4.8 - 10.8 03/26/2018 [facility] Blood erythrocytes automated count (number/volume) 4.54 4.3 - 5.7 03/26/2018 [facility] Blood hemoglobin measurement (moles/volume) 12.7 14.0 - 18.0 03/26/2018 [facility] Automated blood hematocrit (volume fraction) 40.4 38.2 - 49.6 03/26/2018 [facility] Automated erythrocyte mean corpuscular volume 89.0 81 - 99 03/26/2018 [facility] Automated erythrocyte mean corpuscular hemoglobin (mass per erythrocyte) 28.0 28 - 32 03/26/2018 [facility] Automated erythrocyte mean corpuscular hemoglobin concentration measurement (mass/volume) 31.4 31 - 35 03/26/2018 [facility] RDW BldCo-Rto 15.1 11.7 - 14.4 03/26/2018 [facility] Automated blood platelet count (count/volume) 170 140 - 360 03/26/2018 [facility] Automated blood segmented neutrophil count as percentage of total leukocytes 79.8 38.7 - 80.0 03/26/2018 [facility] Automated blood lymphocyte count as percentage ot total leukocytes 14.6 18.0 - 39.1 03/26/2018 [facility] Automated blood monocyte count as percentage of total leukocytes 5.1 4.4 - 11.3 03/26/2018 [facility] Automated blood eosinophil count as percentage of total leukocytes 0.0 0.0 - 6.0 03/26/2018 [facility] Automated blood basophil count as percentage of total leukocytes 0.1 0.0 - 1.0 03/26/2018 [facility] IM GRANULOCYTES % 0.4 0.0 - 1.0 03/26/2018 [facility] Automated blood neutrophil count 5.8 2.1 - 6.9 03/26/2018 [facility] Blood lymphocytes count (number/volume) 1.1 1.0 - 3.2 03/26/2018 [facility] Blood monocytes automated count (number/volume) 0.4 0.2 - 0.8 03/26/2018 [facility] Automated blood eosinophil count 0.0 0.0 - 0.4 03/26/2018 [facility] Automated blood basophil count (count/volume) 0.0 0.0 - 0.1 03/26/2018 [facility] Absolute Immature Granulocyte (auto 0.03 0 - 0.1 03/26/2018 [facility] Prothrombin time (PT) in platelet poor plasma by coagulation assay 14.7 11.9 - 14.5 03/26/2018 [facility] INR in Platelet poor plasma by Coagulation assay 1.05 03/26/2018 [facility] Activated partial thromboplastin time (aPTT) in platelet poor plasma bycoagulation assay 31.1 23.8 - 35.5 03/26/2018 [facility] Serum or plasma sodium measurement (moles/volume) 139 136 - 145 03/26/2018 [facility] Serum or plasma potassium measurement (moles/volume) 4.1 3.5 - 5.1 03/26/2018 [facility] Serum or plasma chloride measurement (moles/volume) 105 98 - 107 03/26/2018 [facility] Serum or plasma carbon dioxide, total measurement (moles/volume) 26 22 - 29 03/26/2018 [facility] Serum or plasma anion gap 12.1 8 - 16 03/26/2018 [facility] Serum or plasma urea nitrogen measurement (mass/volume) 13 7 - 26 03/26/2018 [facility] Serum or plasma creatinine measurement (mass/volume) 0.75 0.72 - 1.25 03/26/2018 [facility] Serum or plasma urea nitrogen/creatinine mass ratio 17 6 - 25 03/26/2018 [facility] Estimated glomerular filtration rate (GFR) determination > 60 60 03/26/2018 [facility] Glucose measurement 95 74 - 118 03/26/2018 [facility] Serum or plasma calcium measurement (mass/volume) 8.7 8.4 - 10.2 03/26/2018 [facility] Serum or plasma total bilirubin measurement (mass/volume) 0.6 0.2 - 1.2 03/26/2018 [facility] Aspartate Amino Transf (AST/SGOT) 24 5 - 34 03/26/2018 [facility] Serum or plasma alanine aminotransferase measurement (enzymatic activity/volume) 22 0 - 55 03/26/2018 [facility] Serum or plasma protein measurement (mass/volume) 6.9 6.5 - 8.1 03/26/2018 [facility] Serum or plasma albumin measurement (mass/volume) 3.8 3.5 - 5.0 03/26/2018 [facility] Plasma globulin measurement (mass/volume) 3.1 2.3 - 3.5 03/26/2018 [facility] Serum or plasma albumin/globulin mass ratio 1.2 0.8 - 2.0 03/26/2018 [facility] Serum or plasma alkaline phosphatase measurement (enzymatic activity/volume) 41 40 - 150 03/26/2018 [facility] BNP Bld-mCnc 83.3 0 - 100 03/26/2018 [facility] IMMUNOLOGY C-REACTIVE PROTEIN 14.5 mg/L <=2.9 mg/L 09/24/2014 [facility] Sed Rate 38 mm/h 0 - 15 09/24/2014 [facility] MCV 88.0 fL 80.0 - 94.0 09/24/2014 [facility] Hct 33.0 % 42.0 - 54.0 09/24/2014 [facility] Hgb 11.0 g/dL 14.0 - 18.0 09/24/2014 [facility] RBC 3.74 M/CMM 4.70 - 6.10 09/24/2014 [facility] WBC 10.1 K/CMM 3.7 - 10.4 09/24/2014 [facility] Platelet 321 K/CMM 133 - 450 09/24/2014 [facility] MPV 8.0 fL 7.4 - 10.4 09/24/2014 [facility] MCHC 33.4 g/dL 32.0 - 36.0 09/24/2014 [facility] RDW 15.9 % 11.5 - 14.5 09/24/2014 [facility] MCH 29.4 pg 27.0 - 31.0 09/24/2014 [facility] Basophils # 0.1 K/CMM 0.0 - 0.2 09/24/2014 [facility] Monocytes # 0.8 K/CMM 0.0 - 0.8 09/24/2014 [facility] HEMATOLOGY Lymphocytes # 1.7 K/CMM 1.0 - 5.5 09/24/2014 [facility] HEMATOLOGY Segs-Bands # 7.4 K/CMM 1.5 - 8.1 09/24/2014 [facility] HEMATOLOGY Basophils 0.6 % 0.0 - 1.0 09/24/2014 [facility] HEMATOLOGY Eosinophils 0.4 % 0.0 - 4.0 09/24/2014 [facility] HEMATOLOGY Monocytes 8.1 % 2.0 - 12.0 09/24/2014 [facility] HEMATOLOGY Lymphocytes 17.1 % 20.0 - 40.0 09/24/2014 [facility] HEMATOLOGY Segs 73.8 % 45.0 - 75.0 09/24/2014 [facility] HEMATOLOGY MPV 7.6 fL 7.4 - 10.4 09/23/2014 [facility] RDW 16.4 % 11.5 - 14.5 09/23/2014 [facility] Platelet 342 K/CMM 133 - 450 09/23/2014 [facility] MCH 29.1 pg 27.0 - 31.0 09/23/2014 [facility] MCHC 33.0 g/dL 32.0 - 36.0 09/23/2014 [facility] MCV 88.1 fL 80.0 - 94.0 09/23/2014 [facility] Hct 34.0 % 42.0 - 54.0 09/23/2014 [facility] Hgb 11.2 g/dL 14.0 - 18.0 09/23/2014 [facility] RBC 3.86 M/CMM 4.70 - 6.10 09/23/2014 [facility] WBC 11.2 K/CMM 3.7 - 10.4 09/23/2014 [facility] HEMATOLOGY Segs-Bands # 8.6 K/CMM 1.5 - 8.1 09/23/2014 [facility] HEMATOLOGY Basophils 0.6 % 0.0 - 1.0 09/23/2014 [facility] HEMATOLOGY Eosinophils 0.6 % 0.0 - 4.0 09/23/2014 [facility] HEMATOLOGY Segs 76.8 % 45.0 - 75.0 09/23/2014 [facility] HEMATOLOGY Monocytes 7.7 % 2.0 - 12.0 09/23/2014 [facility] HEMATOLOGY Lymphocytes 14.3 % 20.0 - 40.0 09/23/2014 [facility] Lymphocytes # 1.6 K/CMM 1.0 - 5.5 09/23/2014 [facility] HEMATOLOGY Basophils # 0.1 K/CMM 0.0 - 0.2 09/23/2014 [facility] HEMATOLOGY Eosinophils # 0.1 K/CMM 0.0 - 0.5 09/23/2014 [facility] HEMATOLOGY Monocytes # 0.9 K/CMM 0.0 - 0.8 09/23/2014 [facility] CHEM PANEL BUN 15 mg/dL 7 - 22 09/21/2014 [facility] CHEM PANEL Glucose Lvl 87 mg/dL 70 - 99 09/21/2014 4Interpretive Data: Adult reference range values reflect the clinical guidelines of the [employer]. [facility] CHEM PANEL CO2 28 meq/L 24 - 32 09/21/2014 [facility] CHEM PANEL eGFR 91 mL/min/1.73m2 09/21/2014 1Result Comment: The eGFR is calculated using the CKD-EPI formula. In most young, healthy individuals the eGFR will be >90 mL/min/1.73m2. The eGFR declines with age. An eGFR of 60-89 may be normal in some populations, particularly the elderly, for whom the CKD-EPI formula has not been extensively validated. Use of the eGFR is not recommended in the following populations: Individuals with unstable creatinine concentrations, including patients and those with serious co-morbid conditions. Patients with extremes in muscle mass or diet. The data above are obtained from the National Kidney Disease Education Program (NKDEP) which additionally recommends that when the eGFR is used in patients with extremes of body mass index for purposes of drug dosing, the eGFR should be multiplied by the estimated BMI. [facility] CHEM PANEL Chloride Lvl 103 meq/L 95 - 109 09/21/2014 [facility] CHEM PANEL Calcium Lvl 8.2 mg/dL 8.5 - 10.5 09/21/2014 [facility] CHEM PANEL Potassium Lvl 3.6 meq/L 3.5 - 5.1 09/21/2014 [facility] CHEM PANEL Sodium Lvl 139 meq/L 135 - 145 09/21/2014 [facility] CHEM PANEL Creatinine Lvl 0.8 mg/dL 0.5 - 1.4 09/21/2014 [facility] CHEM PANEL AGAP 11.6 meq/L 10.0 - 20.0 09/21/2014 [facility] HEMATOLOGY Basophils 0.9 % 0.0 - 1.0 09/21/2014 [facility] HEMATOLOGY Monocytes 7.1 % 2.0 - 12.0 09/21/2014 [facility] HEMATOLOGY Eosinophils 2.2 % 0.0 - 4.0 09/21/2014 [facility] HEMATOLOGY Basophils # 0.1 K/CMM 0.0 - 0.2 09/21/2014 [facility] HEMATOLOGY Eosinophils # 0.3 K/CMM 0.0 - 0.5 09/21/2014 [facility] HEMATOLOGY Segs-Bands # 8.6 K/CMM 1.5 - 8.1 09/21/2014 [facility] HEMATOLOGY Monocytes # 0.8 K/CMM 0.0 - 0.8 09/21/2014 [facility] HEMATOLOGY Lymphocytes # 1.9 K/CMM 1.0 - 5.5 09/21/2014 [facility] HEMATOLOGY Segs 73.2 % 45.0 - 75.0 09/21/2014 [facility] Lymphocytes 16.6 % 20.0 - 40.0 09/21/2014 [facility] WBC 11.7 K/CMM 3.7 - 10.4 09/21/2014 [facility] Hgb 10.7 g/dL 14.0 - 18.0 09/21/2014 [facility] RBC 3.70 M/CMM 4.70 - 6.10 09/21/2014 [facility] Hct 32.8 % 42.0 - 54.0 09/21/2014 [facility] MPV 7.9 fL 7.4 - 10.4 09/21/2014 [facility] Platelet 360 K/CMM 133 - 450 09/21/2014 [facility] RDW 15.6 % 11.5 - 14.5 09/21/2014 [facility] MCHC 32.7 g/dL 32.0 - 36.0 09/21/2014 [facility] MCH 29.0 pg 27.0 - 31.0 09/21/2014 [facility] MCV 88.6 fL 80.0 - 94.0 09/21/2014 [facility] CHEM PANEL Calcium Lvl 8.4 mg/dL 8.5 - 10.5 09/20/2014 [facility] CHEM PANEL AGAP 10.3 meq/L 10.0 - 20.0 09/20/2014 [facility] CHEM PANEL Chloride Lvl 105 meq/L 95 - 109 09/20/2014 [facility] CHEM PANEL CO2 28 meq/L 24 - 32 09/20/2014 [facility] CHEM PANEL eGFR 96 mL/min/1.73m2 09/20/2014 2Result Comment: The eGFR is calculated using the CKD-EPI formula. In most young, healthy individuals the eGFR will be >90 mL/min/1.73m2. The eGFR declines with age. An eGFR of 60-89 may be normal in some populations, particularly the elderly, for whom the CKD-EPI formula has not been extensively validated. Use of the eGFR is not recommended in the following populations: Individuals with unstable creatinine concentrations, including patients and those with serious co-morbid conditions. Patients with extremes in muscle mass or diet. The data above are obtained from the National Kidney Disease Education Program (NKDEP) which additionally recommends that when the eGFR is used in patients with extremes of body mass index for purposes of drug dosing, the eGFR should be multiplied by the estimated BMI. [facility] CHEM PANEL Creatinine Lvl 0.7 mg/dL 0.5 - 1.4 09/20/2014 [facility] CHEM PANEL Sodium Lvl 139 meq/L 135 - 145 09/20/2014 [facility] CHEM PANEL Glucose Lvl 96 mg/dL 70 - 99 09/20/2014 5Interpretive Data: Adult reference range values reflect the clinical guidelines of the [employer] Diabetes [employer]. [facility] CHEM PANEL BUN 13 mg/dL 7 - 22 09/20/2014 [facility] CHEM PANEL Potassium Lvl 4.3 meq/L 3.5 - 5.1 09/20/2014 [facility] HEMATOLOGY Plt Morph Normal (09/20/14 7:13 AM) 09/20/2014 [facility] HEMATOLOGY Eosinophils # 0.4 K/CMM 0.0 - 0.5 09/20/2014 [facility] HEMATOLOGY RBC Morph Normal (09/20/14 7:13 AM) 09/20/2014 [facility] BLOOD BANK RESULTS Antibody Scrn Negative (09/19/14 11:23 PM) 09/20/2014 [facility] BLOOD [facility] RESULTS ABO/Rh A POS 09/20/2014 [facility] URINE AND STOOL UA Sq Epi None Seen 09/20/2014 [facility] URINE AND STOOL UA Color Yellow *NA* (09/19/14 10:19 PM) Yellow 09/20/2014 [facility] URINE AND STOOL UA Spec Grav 1.014 <=1.030 09/20/2014 [facility] URINE AND STOOL UA Turbidity Clear (09/19/14 10:19 PM) Clear 09/20/2014 [facility] URINE AND STOOL UA Ketones Negative mg/dL Negative mg/dL 09/20/2014 [facility] URINE AND STOOL UA Glucose Negative mg/dL Negative mg/dL 09/20/2014 [facility] URINE AND STOOL UA Protein Negative mg/dL Negative mg/dL 09/20/2014 [facility] URINE AND STOOL UA pH 7.0 5.0 - 8.0 09/20/2014 [facility] URINE AND STOOL UA Bili Negative *NA* (09/19/14 10:19 PM) Negative 09/20/2014 [facility] URINE AND STOOL UA Leuk Est Negative (09/19/14 10:19 PM) Negative 09/20/2014 [facility] URINE AND STOOL UA Nitrite Negative (09/19/14 10:19 PM) Negative 09/20/2014 [facility] URINE AND STOOL UA Urobilinogen 4.0 mg/dL 0.1 - 1.0 09/20/2014 [facility] URINE AND STOOL UA Blood Negative (09/19/14 10:19 PM) Negative 09/20/2014 [facility] URINE AND STOOL UA WBC 1 /HPF 0 - 5 09/20/2014 [facility] URINE AND STOOL UA Amorph Karyna Occasional /HPF None Seen /HPF 09/20/2014 [facility] URINE AND STOOL UA Mucus Few /LPF None Seen /LPF 09/20/2014 [facility] URINE AND STOOL UA RBC null 0 - 2 09/20/2014 [facility] BLOOD BANK RESULTS RBC product Product available (09/19/14 9:46 PM) 09/20/2014 [facility] Chest 2 views DX Chest 2 views DX Examination: Chest x-ray, 2 views History: Fever Comparison: None. Findings: The lungs are clear and without focal consolidation. The cardiomediastinal silhouette is within normal limits. No pleural effusion or pneumothorax is seen. Degenerative changes of the thoracic spine are present. IMPRESSION: No acute cardiopulmonary disease. SL: 16 09/20/2014 - - Read by: Eh Lamb MD Dictated Date/time: 09/20/14 01:29 Electronically Signed by: Eh Lamb MD 09/20/14 01:30 FINAL REPORT [facility] CHEM PANEL eGFR 87 mL/min/1.73m2 09/20/2014 3Result Comment: The eGFR is calculated using the CKD-EPI formula. In most young, healthy individuals the eGFR will be >90 mL/min/1.73m2. The eGFR declines with age. An eGFR of 60-89 may be normal in some populations, particularly the elderly, for whom the CKD-EPI formula has not been extensively validated. Use of the eGFR is not recommended in the following populations: Individuals with unstable creatinine concentrations, including patients and those with serious co-morbid conditions. Patients with extremes in muscle mass or diet. The data above are obtained from the National Kidney Disease Education Program (NKDEP) which additionally recommends that when the eGFR is used in patients with extremes of body mass index for purposes of drug dosing, the eGFR should be multiplied by the estimated BMI. [facility] CHEM PANEL Creatinine Lvl 0.9 mg/dL 0.5 - 1.4 09/20/2014 [facility] CHEM PANEL BUN 16 mg/dL 7 - 22 09/20/2014 [facility] CHEM PANEL Sodium Lvl 142 meq/L 135 - 145 09/20/2014 [facility] CHEM PANEL Potassium Lvl 4.3 meq/L 3.5 - 5.1 09/20/2014 [facility] CHEM PANEL Chloride Lvl 106 meq/L 95 - 109 09/20/2014 [facility] CHEM PANEL CO2 29 meq/L 24 - 32 09/20/2014 [facility] CHEM PANEL AGAP 11.3 meq/L 10.0 - 20.0 09/20/2014 [facility] CHEM PANEL Calcium Lvl 8.1 mg/dL 8.5 - 10.5 09/20/2014 [facility] CHEM PANEL Glucose Lvl 93 mg/dL 70 - 99 09/20/2014 6Interpretive Data: Adult reference range values reflect the clinical guidelines of the [employer] Diabetes [employer]. [facility] HEMATOLOGY Sed Rate 60 mm/h 0 - 15 09/20/2014 [facility] IMMUNOLOGY C-REACTIVE PROTEIN 40.0 mg/L <=2.9 mg/L 09/20/2014 [facility] Ext Lower Venous Doppler Unilat US Ext Lower Venous Doppler Unilat US NAME: ANKUR ALVARADO : 1945 SEX: M Ordering Physician: Mehdi Baron Left lower extremity venous Doppler US : Sep 18, 2014 05:02:00 PM. CLINICAL INDICATION: Left leg swelling. Comparison Examination: None. FINDINGS: Compression views, color doppler, spectral doppler wave form analysis and grayscale imaging were performed of the left common femoral vein to the left popliteal vein. No evidence for deep venous thrombosis from the left common femoral vein to the left popliteal vein. SL: 14 09/18/2014 - - Read by: Giorgio Reveles MD Dictated Date/time: 09/18/14 17:41 Electronically Signed by: Giorgio Reveles MD 09/18/14 17:43 FINAL REPORT [facility] Basophils 0.3 % 0.0 - 1.0 09/13/2014 [facility] Lymphocytes # 1.0 K/CMM 1.0 - 5.5 09/13/2014 [facility] Segs-Bands # 10.5 K/CMM 1.5 - 8.1 09/13/2014 [facility] Monocytes # 0.9 K/CMM 0.0 - 0.8 09/13/2014 [facility] Lymphocytes 8.1 % 20.0 - 40.0 09/13/2014 [facility] Segs 84.6 % 45.0 - 75.0 09/13/2014 [facility] Monocytes 7.0 % 2.0 - 12.0 09/13/2014 [facility] MPV 8.7 fL 7.4 - 10.4 09/13/2014 [facility] WBC 12.4 K/CMM 3.7 - 10.4 09/13/2014 [facility] Hgb 8.9 g/dL 14.0 - 18.0 09/13/2014 [facility] RBC 3.11 M/CMM 4.70 - 6.10 09/13/2014 [facility] MCV 85.7 fL 80.0 - 94.0 09/13/2014 [facility] Hct 26.7 % 42.0 - 54.0 09/13/2014 [facility] MCH 28.7 pg 27.0 - 31.0 09/13/2014 [facility] MCHC 33.5 g/dL 32.0 - 36.0 09/13/2014 [facility] RDW 13.8 % 11.5 - 14.5 09/13/2014 [facility] Platelet 123 K/CMM 133 - 450 09/13/2014 [facility] Monocytes 7.2 % 2.0 - 12.0 09/12/2014 [facility] Segs-Bands # 10.1 K/CMM 1.5 - 8.1 09/12/2014 [facility] Basophils 0.4 % 0.0 - 1.0 09/12/2014 [facility] Eosinophils 0.1 % 0.0 - 4.0 09/12/2014 [facility] Lymphocytes 8.5 % 20.0 - 40.0 09/12/2014 [facility] Monocytes # 0.9 K/CMM 0.0 - 0.8 09/12/2014 [facility] Lymphocytes # 1.0 K/CMM 1.0 - 5.5 09/12/2014 [facility] Segs 83.8 % 45.0 - 75.0 09/12/2014 [facility] MPV 8.8 fL 7.4 - 10.4 09/12/2014 [facility] Platelet 126 K/CMM 133 - 450 09/12/2014 [facility] RDW 13.7 % 11.5 - 14.5 09/12/2014 [facility] Hgb 10.5 g/dL 14.0 - 18.0 09/12/2014 [facility] RBC 3.65 M/CMM 4.70 - 6.10 09/12/2014 [facility] WBC 12.1 K/CMM 3.7 - 10.4 09/12/2014 [facility] Hct 31.4 % 42.0 - 54.0 09/12/2014 [facility] MCHC 33.4 g/dL 32.0 - 36.0 09/12/2014 [facility] MCH 28.7 pg 27.0 - 31.0 09/12/2014 [facility] MCV 86.1 fL 80.0 - 94.0 09/12/2014 [facility] CHEM PANEL Creatinine Lvl 0.8 mg/dL 0.5 - 1.4 09/12/2014 [facility] CHEM PANEL eGFR 91 mL/min/1.73m2 09/12/2014 1Result Comment: The eGFR is calculated using the CKD-EPI formula. In most young, healthy individuals the eGFR will be >90 mL/min/1.73m2. The eGFR declines with age. An eGFR of 60-89 may be normal in some populations, particularly the elderly, for whom the CKD-EPI formula has not been extensively validated. Use of the eGFR is not recommended in the following populations: Individuals with unstable creatinine concentrations, including patients and those with serious co-morbid conditions. Patients with extremes in muscle mass or diet. The data above are obtained from the National Kidney Disease Education Program (NKDEP) which additionally recommends that when the eGFR is used in patients with extremes of body mass index for purposes of drug dosing, the eGFR should be multiplied by the estimated BMI. [facility] HEMATOLOGY Platelet 127 K/CMM 133 - 450 09/12/2014 [facility] HEMATOLOGY PTT 35.4 s 22.9 - 35.8 09/12/2014 6Interpretive Data: Heparin Therapeutic Range: 57 - 92 Seconds [facility] HEMATOLOGY INR 1.33 0.85 - 1.17 09/12/2014 4Interpretive Data: RECOMMENDED RANGES FOR PROTIME INR: 2.0-3.0 for most medical and surgical thromboembolic states. 2.5-3.5 for artificial heart valves and recurrent embolism. INR SHOULD BE USED ONLY FOR PATIENTS ON STABLE ANTICOAGULANT THERAPY. [facility] HEMATOLOGY PT 16.6 s 12.0 - 14.7 09/12/2014 [facility] BLOOD BANK RESULTS ABO/Rh A POS 09/11/2014 [facility] BLOOD BANK RESULTS Antibody Scrn Negative (09/11/14 5:43 AM) 09/11/2014 [facility] Knee 1-2 Views unilateral DX Knee 1-2 Views unilateral DX Examination: Left knee, 2 views History: Joint deformities Comparison: None. Findings: Two views of the left knee show postoperative changes of total knee arthroplasty and patellar resurfacing with overlying soft tissue swelling and soft tissue gas with surgical skin sarah. Anatomic alignment is maintained across the knee. Arterial calcifications are present. IMPRESSION: Status post left total knee arthroplasty. SL: 16 09/11/2014 - - Read by: Eh Lamb MD Dictated Date/time: 09/11/14 09:21 Electronically Signed by: Eh Lamb MD 09/11/14 09:22 FINAL REPORT [facility] URINE AND STOOL UA Urobilinogen <=1.0 mg/dL 0.1 - 1.0 08/30/2014 [facility] URINE AND STOOL UA Color Ltyellow 08/30/2014 [facility] URINE AND STOOL UA Sq Epi None Seen 08/30/2014 [facility] URINE AND STOOL UA Protein Negative mg/dL Negative mg/dL 08/30/2014 [facility] URINE AND STOOL UA Glucose Negative mg/dL Negative mg/dL 08/30/2014 [facility] URINE AND STOOL UA pH 5.0 5.0 - 8.0 08/30/2014 [facility] URINE AND STOOL UA RBC 2 /HPF 0 - 2 08/30/2014 [facility] URINE AND STOOL UA WBC null 0 - 5 08/30/2014 [facility] URINE AND STOOL UA Leuk Est Negative (08/30/14 8:59 AM) Negative 08/30/2014 [facility] URINE AND STOOL UA Nitrite Negative (08/30/14 8:59 AM) Negative 08/30/2014 [facility] URINE AND STOOL UA Bili Negative *NA* (08/30/14 8:59 AM) Negative 08/30/2014 [facility] URINE AND STOOL UA Blood Negative (08/30/14 8:59 AM) Negative 08/30/2014 [facility] URINE AND STOOL UA Ketones Negative mg/dL Negative mg/dL 08/30/2014 [facility] URINE AND STOOL UA Turbidity Clear (08/30/14 8:59 AM) Clear 08/30/2014 [facility] URINE AND STOOL UA Spec Grav 1.017 <=1.030 08/30/2014 [facility] BLOOD BANK RESULTS ABO/Rh A POS 08/30/2014 [facility] BLOOD BANK RESULTS Antibody Scrn Negative (08/30/14 8:57 AM) 08/30/2014 [facility] CHEM PANEL eGFR 96 mL/min/1.73m2 08/30/2014 2Result Comment: The eGFR is calculated using the CKD-EPI formula. In most young, healthy individuals the eGFR will be >90 mL/min/1.73m2. The eGFR declines with age. An eGFR of 60-89 may be normal in some populations, particularly the elderly, for whom the CKD-EPI formula has not been extensively validated. Use of the eGFR is not recommended in the following populations: Individuals with unstable creatinine concentrations, including patients and those with serious co-morbid conditions. Patients with extremes in muscle mass or diet. The data above are obtained from the National Kidney Disease Education Program (NKDEP) which additionally recommends that when the eGFR is used in patients with extremes of body mass index for purposes of drug dosing, the eGFR should be multiplied by the estimated BMI. [facility] CHEM PANEL Chloride Lvl 109 meq/L 95 - 109 08/30/2014 [facility] CHEM PANEL Calcium Lvl 8.8 mg/dL 8.5 - 10.5 08/30/2014 [facility] CHEM PANEL Creatinine Lvl 0.7 mg/dL 0.5 - 1.4 08/30/2014 [facility] CHEM PANEL Sodium Lvl 143 meq/L 135 - 145 08/30/2014 [facility] CHEM PANEL CO2 25 meq/L 24 - 32 08/30/2014 [facility] CHEM PANEL Potassium Lvl 4.1 meq/L 3.5 - 5.1 08/30/2014 [facility] CHEM PANEL BUN 15 mg/dL 7 - 22 08/30/2014 [facility] CHEM PANEL Glucose Lvl 79 mg/dL 70 - 99 08/30/2014 3Interpretive Data: Adult reference range values reflect the clinical guidelines of the [place] [employer]. [facility] CHEM PANEL AGAP 13.1 meq/L 10.0 - 20.0 08/30/2014 [facility] HEMATOLOGY INR 1.13 0.85 - 1.17 08/30/2014 5Interpretive Data: RECOMMENDED RANGES FOR PROTIME INR: 2.0-3.0 for most medical and surgical thromboembolic states. 2.5-3.5 for artificial heart valves and recurrent embolism. INR SHOULD BE USED ONLY FOR PATIENTS ON STABLE ANTICOAGULANT THERAPY. [facility] PT 14.6 s 12.0 - 14.7 08/30/2014 [facility] PTT 32.7 s 22.9 - 35.8 08/30/2014 7Interpretive Data: Heparin Therapeutic Range: 57 - 92 Seconds [facility] MPV 9.2 fL 7.4 - 10.4 08/30/2014 [facility] MCV 86.7 fL 80.0 - 94.0 08/30/2014 [facility] MCH 28.4 pg 27.0 - 31.0 08/30/2014 [facility] WBC 4.9 K/CMM 3.7 - 10.4 08/30/2014 [facility] RDW 13.9 % 11.5 - 14.5 08/30/2014 [facility] MCHC 32.7 g/dL 32.0 - 36.0 08/30/2014 [facility] Hct 41.6 % 42.0 - 54.0 08/30/2014 [facility] RBC 4.80 M/CMM 4.70 - 6.10 08/30/2014 [facility] Hgb 13.6 g/dL 14.0 - 18.0 08/30/2014 [facility] Lymphocytes 25.3 % 20.0 - 40.0 08/30/2014 [facility] Lymphocytes # 1.2 K/CMM 1.0 - 5.5 08/30/2014 [facility] Eosinophils 0.2 % 0.0 - 4.0 08/30/2014 [facility] HEMATOLOGY Monocytes 6.7 % 2.0 - 12.0 08/30/2014 [facility] HEMATOLOGY Monocytes # 0.3 K/CMM 0.0 - 0.8 08/30/2014 [facility] HEMATOLOGY Basophils 0.7 % 0.0 - 1.0 08/30/2014 [facility] HEMATOLOGY Segs-Bands # 3.3 K/CMM 1.5 - 8.1 08/30/2014 [facility] HEMATOLOGY Segs 67.1 % 45.0 - 75.0 08/30/2014 [facility] BLOOD BANK RESULTS RBC product Product available (08/30/14 8:36 AM) 08/30/2014 [facility] Free thyroxine index 1.6541 1.4 - 3.8 [facility] Serum or plasma thyroxine (T4) measurement (mass/volume) 4.96 4.5 - 10.9 [facility] Serum or plasma triiodothyronine resin uptake (T3RU) 33.35 22.5 - 37.0 [facility] Serum or plasma thyrotropin measurement by detection limit <=0.005 miu/l (units/volume) 1.676 0.350 - 4.940 [facility] Vital Signs Vital Sign Value Date Comments Source Temperature Oral (F) 99.1 F 09/24/2014 [facility] Heart Rate 103 09/24/2014 [facility] Systolic (mm Hg) 142 09/24/2014 [facility] Diastolic (mm Hg) 75 09/24/2014 [facility] Respitory Rate 16 09/24/2014 [facility] Weight 73.63 09/24/2014 [facility] BMI Calculated 27.01 09/24/2014 [facility] Height 165.1 cm 09/24/2014 [facility] Temperature Oral (F) 98.2 F 09/24/2014 [facility] Heart Rate 80 09/24/2014 [facility] Systolic (mm Hg) 110 09/24/2014 [facility] Diastolic (mm Hg) 80 09/24/2014 [facility] Respitory Rate 18 09/24/2014 [facility] Systolic (mm Hg) 120 09/24/2014 [facility] Diastolic (mm Hg) 76 09/24/2014 [facility] Respitory Rate 16 09/24/2014 [facility] Temperature Oral (F) 97.8 F 09/24/2014 [facility] Heart Rate 77 09/24/2014 [facility] Height 165.1 cm 09/19/2014 [facility] Weight 73.636 09/19/2014 [facility] BMI Calculated 27.01 09/19/2014 [facility] Respitory Rate 22 09/13/2014 [facility] Heart Rate 103 09/13/2014 [facility] Temperature Oral (F) 98.6 F 09/13/2014 [facility] Respitory Rate 14 09/13/2014 [facility] Systolic (mm Hg) 162 09/13/2014 [facility] Diastolic (mm Hg) 75 09/13/2014 [facility] Systolic (mm Hg) 146 09/13/2014 [facility] Diastolic (mm Hg) 79 09/13/2014 [facility] Heart Rate 83 09/13/2014 [facility] Respitory Rate 18 09/13/2014 [facility] Temperature Oral (F) 98.9 F 09/13/2014 [facility] Systolic (mm Hg) 155 09/13/2014 [facility] Diastolic (mm Hg) 71 09/13/2014 [facility] Temperature Oral (F) 98 F 09/13/2014 [facility] Heart Rate 76 09/13/2014 [facility] Weight 72.273 08/30/2014 [facility] BMI Calculated 26.51 08/30/2014 [facility] Height 165.1 cm 08/30/2014 [facility] Encounters Location Location Details Encounter Type Encounter Number Reason For Visit Attending Provider ADM Date DC Date Status Source [facility] Inpatient [id number] Mehdi Baron 09/11/2014 09/13/[address] [facility] OP Therapy Patients [id number] Mehdi Baron 09/14/2014 10/14/2014 [facility] [place] OP Therapy Patients [id number] Mehdi Baron 09/18/2014 10/18/2014 [facility] Inpatient [id number] Mehdi Baron 09/19/2014 09/24/2014 [facility] [place] OP Therapy Patients [id number] Mehdi Baron 10/19/2014 11/18/2014 [facility] [place] [facility] [place] [facility] [id number] Mehdi Baron 11/19/2014 12/19/2014 [facility] [place] [facility] [id number] Mehdi Baron 12/24/2014 01/23/2015 [facility] [place] Discharged Inpatient [id number] ERICK AGOSTO MD 03/26/2018 03/29/2018 [facility] Procedures Procedure Code Date Perfomer Comments Source Meniscectomy of knee [id number] [facility] Meniscectomy of knee [id number] [facility] Meniscectomy of knee [id number] [facility]
--- OUTSIDE RECORDS SUMMARY | 2018-05-06 19:50 | XMS REPORT | Summary of Care ---
Author Author [facility] Address Unknown Phone Unavailable Encounter HQ Reymundontr_jey(FIN) [id number] Date(s): 09/18/14 - 10/17/14 [facility] Discharge Disposition: Home Attending Physician: Mehdi Baron [...]
--- OUTSIDE RECORDS SUMMARY | 2018-05-06 19:50 | XMS REPORT | Summary of Care ---
Author Organization Unknown Address Unknown Phone Unavailable Encounter HQ Rajinder(ANA) [id number] Date(s): 09/19/14 - 09/24/14 [facility] [address] [place] [address]- Discharge Disposition: Home Physician Attending: Mehdi Liu Physician Admitting: Mehdi Liu Vital Signs 1 2 3 Most recent to oldest [Reference Range]: 165.1 cm (09/24/14 7:15 AM) 165.1 cm (09/19/14 5:46 PM) Height 99.1 DegF (09/24/14 8:00 AM) 98.2 DegF (09/24/14 4:00 AM) 97.8 DegF (09/24/14 12:07 AM) Temperature Oral [96.4-99.1 DegF] 142/75 mmHg *HI* (09/24/14 8:00 AM) 110/80 mmHg (09/24/14 4:00 AM) 120/76 mmHg (09/24/14 12:07 AM) Blood Pressure [90-140/60-90 mmHg] 16 BRMIN (09/24/14 8:00 AM) 18 BRMIN (09/24/14 4:00 AM) 16 BRMIN (09/24/14 12:07 AM) Respiratory Rate [14-20 BRMIN] 103 bpm *HI* (09/24/14 8:00 AM) 80 bpm (09/24/14 4:00 AM) 77 bpm (09/24/14 12:07 AM) Peripheral Pulse Rate [60-100 bpm] 73.63 kg (09/24/14 7:15 AM) 73.636 kg (09/19/14 5:46 PM) Weight 27.01 m2 (09/24/14 7:15 AM) 27.01 m2 (09/19/14 5:46 PM) Body Mass Index Problem List Condition Effective Dates Status Health Status Informant Knee joint Active pain(Confirmed)1 Osteoarthritis(Confi Resolved rmed) Prostate Resolved enlargement(Confirme d) Seasonal Resolved allergies(Confirmed) 1left knee Allergies, Adverse Reactions, Alerts Substance Reaction Severity Status NKDA Active Medications Ambien 5 mg, 1 tab, Route: PO, Drug form: TAB, Bedtime, PRN Sleep, Start date: 09/19/14 21:21:00, Duration: 30 day, Stop date: 10/19/14 21:20:00 Notes: (Same As: Ambien) Start Date: 09/19/14 Stop Date: 09/24/14 Status: Discontinued clindamycin 900 mg, 50 mL, Route: IVPB, Drug form: INJ, [id number], Dosing Weight 73.636, kg, St art date: 09/19/14 21:00:00, Duration: 30 day, Stop date: 10/19/14 13:00:00 Start Date: 09/19/14 Stop Date: 09/23/14 Status: Discontinued Dilaudid 1 mg, 1 mL, Route: IV, Drug form: INJ, Q6H, Dosing Weight 73.636, kg, PRN Pain S core 6-10, Start date: 09/19/14 20:48:00, Duration: 30 day, Stop date: 10/19/14 20:47:00 Start Date: 09/19/14 Stop Date: 09/24/14 Status: Discontinued Dilaudid 1 mg, 1 mL, Route: IV, Drug form: INJ, Q4H, Dosing Weight 73.636, kg, PRN Pain S core 1-5, Start date: 09/19/14 20:36:00, Duration: 30 day, Stop date: 10/19/14 2 0:35:00 Start Date: 09/19/14 Stop Date: 09/24/14 Status: Discontinued diphenhydrAMINE 25 mg, 1 tab, Route: PO, Drug form: TAB, TID, Dosing Weight 73.636, kg, PRN Misbah rgic reaction, Start date: 09/19/14 21:25:00, Duration: 30 day, Stop date: 10/19 21:24:00 Start Date: 09/19/14 Stop Date: 09/24/14 Status: Discontinued Lovenox 30 mg, 0.3 mL, Route: SUB-Q, Drug form: INJ, [id number], Dosing Weight 73.636, kg, Start date: 09/19/14 21:00:00, Duration: 30 day, Stop date: 10/19/14 9:00:00 Notes: (Same as: Lovenox) Start Date: 09/19/14 Stop Date: 09/24/14 Status: Discontinued Lunesta 3 mg, Route: PO, Bedtime, Dosing Weight 73.636, kg, PRN as needed for insomnia, Start date: 09/19/14 20:41:00, Duration: 30 day, Stop date: 10/19/14 20:40:00 Start Date: 09/19/14 Stop Date: 09/19/14 Status: Deleted Amado 7.5/325 oral tablet 2 tab, Route: PO, Drug Form: TAB, Dosing Weight 73.636, kg, Q6H, PRN Pain Score 7-10, Start date: 09/19/14 20:38:00, Duration: 30 day, Stop date: 10/19/14 20:37 :00 Notes: Same as Amado 325-7.5mg Do not exceed 4gm/day of acetaminophen. Start Date: 09/19/14 Stop Date: 09/24/14 Status: Discontinued Amado 7.5/325 oral tablet 1 tab, Route: PO, Drug Form: TAB, Dosing Weight 73.636, kg, Q6H, PRN Pain Score 1-5, Start date: 09/19/14 20:37:00, Duration: 30 day, Stop date: 10/19/14 20:36: 00 Notes: Same as Amado 325-7.5mg Do not exceed 4gm/day of acetaminophen. Start Date: 09/19/14 Stop Date: 09/24/14 Status: Discontinued normal saline 0.9% IV 100 mL 100 mL, Rate: 100 ml/hr, Infuse over: 1 hr, Route: IV, Dosing Weight 73.636 kg, Total Volume: 100, Priority: Routine, Start date: 09/19/14 22:17:00, Duration: 1 doses or times, Stop date: 09/19/14 23:16:00 Start Date: 09/19/14 Stop Date: 09/19/14 Status: Deleted Sodium Chloride 0.9% IV IV, 30 ml/hr, PRN, PRN Blood Transfusion, Start date: 09/19/14 22:22:00, Willo n: 1, 100 ml Start Date: 09/19/14 Stop Date: 09/20/14 Status: Completed Valium 5 mg, 1 mL, Route: IV, Drug form: INJ, Q6H, Dosing Weight 73.636, kg, PRN Spasm, Start date: 09/19/14 20:42:00, Duration: 30 day, Stop date: 10/19/14 20:41:00 Notes: (Same as: Valium) Start Date: 09/19/14 Stop Date: 09/24/14 Status: Discontinued vancomycin 1 gm, 200 mL, Route: IVPB, Drug form: INJ, [id number], Dosing Weight 73.636, kg, St art date: 09/19/14 21:00:00, Duration: 30 day, Stop date: 10/19/14 9:00:00 Notes: TIME CRITICAL MEDICATION Start Date: 09/19/14 Stop Date: 09/24/14 Status: Discontinued Results BLOOD BANK RESULTS 1 2 3 Most recent to oldest [Reference Range]: A POS *Unknown* (09/19/14 11:23 PM) ABO/Rh Negative (09/19/14 11:23 PM) Antibody Scrn Product available (09/19/14 9:46 PM) RBC product ELECTROLYTES 1 2 3 Most recent to oldest [Reference Range]: 139 mEq/L (09/21/14 4:13 AM) 139 mEq/L (09/20/14 7:13 AM) 142 mEq/L (09/19/14 7:37 PM) Sodium Lvl [135-145 mEq/L] 3.6 mEq/L (09/21/14 4:13 AM) 4.3 mEq/L (09/20/14 7:13 AM) 4.3 mEq/L (09/19/14 7:37 PM) Potassium Lvl [3.5-5.1 mEq/L] 103 mEq/L (09/21/14 4:13 AM) 105 mEq/L (09/20/14 7:13 AM) 106 mEq/L (09/19/14 7:37 PM) Chloride Lvl [95-109 mEq/L] 28 mEq/L (09/21/14 4:13 AM) 28 mEq/L (09/20/14 7:13 AM) 29 mEq/L (09/19/14 7:37 PM) CO2 [24-32 mEq/L] 11.6 mEq/L (09/21/14 4:13 AM) 10.3 mEq/L (09/20/14 7:13 AM) 11.3 mEq/L (09/19/14 7:37 PM) AGAP [10.0-20.0 mEq/L] CHEM PANEL 1 2 3 Most recent to oldest [Reference Range]: 0.8 mg/dL (09/21/14 4:13 AM) 0.7 mg/dL (09/20/14 7:13 AM) 0.9 mg/dL (09/19/14 7:37 PM) Creatinine Lvl [0.5-1.4 mg/dL] 91 mL/min/1.73m2 1 *NA* (09/21/14 4:13 AM) 96 mL/min/1.73m2 2 *NA* (09/20/14 7:13 AM) 87 mL/min/1.73m2 3 *NA* (09/19/14 7:37 PM) eGFR 15 mg/dL (09/21/14 4:13 AM) 13 mg/dL (09/20/14 7:13 AM) 16 mg/dL (09/19/14 7:37 PM) BUN [7-22 mg/dL] 87 mg/dL 4 (09/21/14 4:13 AM) 96 mg/dL 5 (09/20/14 7:13 AM) 93 mg/dL 6 (09/19/14 7:37 PM) Glucose Lvl [70-99 mg/dL] 8.2 mg/dL *LOW* (09/21/14 4:13 AM) 8.4 mg/dL *LOW* (09/20/14 7:13 AM) 8.1 mg/dL *LOW* (09/19/14 7:37 PM) Calcium Lvl [8.5-10.5 mg/dL] 1Result Comment: The eGFR is calculated using [...] from the National Kidney Disease Education Program ( NKDEP) which additionally recommends that when the eGFR is used in patients with extremes of body mass index for purposes of drug dosing, the eGFR should be mul tiplied by the estimated BMI. 2Result Comment: The eGFR is calculated using [...] from the National Kidney Disease Education Program ( NKDEP) which additionally recommends that when the eGFR is used in patients with extremes of body mass index for purposes of drug dosing, the eGFR should be mul tiplied by the estimated BMI. 3Result Comment: The eGFR is calculated using [...] from the National Kidney Disease Education Program ( NKDEP) which additionally recommends that when the eGFR is used in patients with extremes of body mass index for purposes of drug dosing, the eGFR should be mul tiplied by the estimated BMI. 4Interpretive Data: Adult reference range values reflect the clinical guidelines of the [employer]. 5Interpretive Data: Adult reference range values reflect the clinical guidelines of the [employer]. 6Interpretive Data: Adult reference range values reflect the clinical guidelines of the [employer]. URINE AND STOOL 1 2 3 Most recent to oldest [Reference Range]: Clear (09/19/14 10:19 PM) UA Turbidity [Clear] Yellow *NA* (09/19/14 10:19 PM) UA Color [Yellow] 7.0 (09/19/14 10:19 PM) UA pH [5.0-8.0] 1.014 (09/19/14 10:19 PM) UA Spec Grav [<=1.030] Negative mg/dL *NA* (09/19/14 10:19 PM) UA Glucose [Negative mg/dL] Negative (09/19/14 10:19 PM) UA Blood [Negative] Negative mg/dL *NA* (09/19/14 10:19 PM) UA Ketones [Negative mg/dL] Negative mg/dL (09/19/14 10:19 PM) UA Protein [Negative mg/dL] 4.0 mg/dL *HI* (09/19/14 10:19 PM) UA Urobilinogen [0.1-1.0 mg/dL] Negative *NA* (09/19/14 10:19 PM) UA Bili [Negative] Negative (09/19/14 10:19 PM) UA Leuk Est [Negative] Negative (09/19/14 10:19 PM) UA Nitrite [Negative] 1 /HPF (09/19/14 10:19 PM) UA WBC [0-5 /HPF] <1 /HPF (09/19/14 10:19 PM) UA RBC [0-2 /HPF] None Seen *NA* (09/19/14 10:19 PM) UA Sq Epi Occasional /HPF *NA* (09/19/14 10:19 PM) UA Amorph Karyna [None Seen /HPF] Few /LPF *NA* (09/19/14 10:19 PM) UA Mucus [None Seen /LPF] IMMUNOLOGY 1 2 3 Most recent to oldest [Reference Range]: 14.5 mg/L *HI* (09/24/14 8:41 AM) 40.0 mg/L *HI* (09/19/14 7:37 PM) CRP [<=2.9 mg/L] HEMATOLOGY 1 2 3 Most recent to oldest [Reference Range]: 10.1 K/CMM (09/24/14 3:57 AM) 11.2 K/CMM *HI* (09/23/14 4:05 AM) 11.7 K/CMM *HI* (09/21/14 4:13 AM) WBC [3.7-10.4 K/CMM] 3.74 M/CMM *LOW* (09/24/14 3:57 AM) 3.86 M/CMM *LOW* (09/23/14 4:05 AM) 3.70 M/CMM *LOW* (09/21/14 4:13 AM) RBC [4.70-6.10 M/CMM] 11.0 g/dL *LOW* (09/24/14 3:57 AM) 11.2 g/dL *LOW* (09/23/14 4:05 AM) 10.7 g/dL *LOW* (09/21/14 4:13 AM) Hgb [14.0-18.0 g/dL] 33.0 % *LOW* (09/24/14 3:57 AM) 34.0 % *LOW* (09/23/14 4:05 AM) 32.8 % *LOW* (09/21/14 4:13 AM) Hct [42.0-54.0 %] 88.0 fL (09/24/14 3:57 AM) 88.1 fL (09/23/14 4:05 AM) 88.6 fL (09/21/14 4:13 AM) MCV [80.0-94.0 fL] 29.4 pg (09/24/14 3:57 AM) 29.1 pg (09/23/14 4:05 AM) 29.0 pg (09/21/14 4:13 AM) MCH [27.0-31.0 pg] 33.4 g/dL (09/24/14 3:57 AM) 33.0 g/dL (09/23/14 4:05 AM) 32.7 g/dL (09/21/14 4:13 AM) MCHC [32.0-36.0 g/dL] 15.9 % *HI* (09/24/14 3:57 AM) 16.4 % *HI* (09/23/14 4:05 AM) 15.6 % *HI* (09/21/14 4:13 AM) RDW [11.5-14.5 %] 321 K/CMM (09/24/14 3:57 AM) 342 K/CMM (09/23/14 4:05 AM) 360 K/CMM (09/21/14 4:13 AM) Platelet [133-450 K/CMM] 8.0 fL (09/24/14 3:57 AM) 7.6 fL (09/23/14 4:05 AM) 7.9 fL (09/21/14 4:13 AM) MPV [7.4-10.4 fL] 73.8 % (09/24/14 3:57 AM) 76.8 % *HI* (09/23/14 4:05 AM) 73.2 % (09/21/14 4:13 AM) Segs [45.0-75.0 %] 17.1 % *LOW* (09/24/14 3:57 AM) 14.3 % *LOW* (09/23/14 4:05 AM) 16.6 % *LOW* (09/21/14 4:13 AM) Lymphocytes [20.0-40.0 %] 8.1 % (09/24/14 3:57 AM) 7.7 % (09/23/14 4:05 AM) 7.1 % (09/21/14 4:13 AM) Monocytes [2.0-12.0 %] 0.4 % (09/24/14 3:57 AM) 0.6 % (09/23/14 4:05 AM) 2.2 % (09/21/14 4:13 AM) Eosinophils [0.0-4.0 %] 0.6 % (09/24/14 3:57 AM) 0.6 % (09/23/14 4:05 AM) 0.9 % (09/21/14 4:13 AM) Basophils [0.0-1.0 %] 7.4 K/CMM (09/24/14 3:57 AM) 8.6 K/CMM *HI* (09/23/14 4:05 AM) 8.6 K/CMM *HI* (09/21/14 4:13 AM) Segs-Bands # [1.5-8.1 K/CMM] 1.7 K/CMM (09/24/14 3:57 AM) 1.6 K/CMM (09/23/14 4:05 AM) 1.9 K/CMM (09/21/14 4:13 AM) Lymphocytes # [1.0-5.5 K/CMM] 0.8 K/CMM (09/24/14 3:57 AM) 0.9 K/CMM *HI* (09/23/14 4:05 AM) 0.8 K/CMM (09/21/14 4:13 AM) Monocytes # [0.0-0.8 K/CMM] 0.1 K/CMM (09/23/14 4:05 AM) 0.3 K/CMM (09/21/14 4:13 AM) 0.4 K/CMM (09/20/14 7:13 AM) Eosinophils # [0.0-0.5 K/CMM] 0.1 K/CMM (09/24/14 3:57 AM) 0.1 K/CMM (09/23/14 4:05 AM) 0.1 K/CMM (09/21/14 4:13 AM) Basophils # [0.0-0.2 K/CMM] Normal (09/20/14 7:13 AM) RBC Morph Normal (09/20/14 7:13 AM) Plt Morph 38 mm/hr *HI* (09/24/14 3:57 AM) 60 mm/hr *HI* (09/19/14 7:37 PM) Sed Rate [0-15 mm/hr] Immunizations Vaccine Date Refusal Reason pneumococcal 23-valent vaccine 09/12/14 Procedures Procedure Date Related Diagnosis Body Site Meniscectomy of knee Social History Social History Type Response Alcohol Never Smoking Status Never smoker; Exposure to Tobacco Smoke None; Cigarette Smoking Last 365 Days No; Reg Smoking Cessation Counseling No Assessment and Plan Extracted from: Title: Clinical Document Author: Thiago Roberto MD Date: 09/24/14 Ifectious Disease Progress Note [facility] Dr. Thiago Roberto SUBJECTIVE Events reviewed. Met with the family/ OBJECTIVE Gen: alert, no acute distress, follow command HEENT: not pale, not icteric, normal cephalic, Neck: Supple, no jvd, CV: S1, S2, no murmurs Lung: clear bilateral course BS Abd: soft, bowel sound normal, no tenderness Ext: no edema Skin: no rash Neuro: no seizure, no local finding Vitals and Temp: VitalsTmp(F)[id number] 09/24 08:[id number]--- 09/24 04:0098.132230/132392--- 09/24 00:0797.926178/7616------ 09/23 20:2398.857869/[id number]--- 09/23 17:02----[id number]--- 24 Hr Tmax: 99.1F (37.28c) at 09/24 08:00Vital Signs are the last 5 in the past 48 hours. Input/Output RecordInOutBal 09/623hr Tot 400 0 400 09/523hr Tot 450 0 450 Physical Exam Labs (Last four charted values) WBC 10.1(SEP 24)H 11.2(SEP 23)H 11.7(SEP 21)H 12.1(SEP 20) Hgb L 11.0(SEP 24)L 11.2(SEP 23)L 10.7(SEP 21)L 11.2(SEP 20) Hct L 33.0(SEP 24)L 34.0(SEP 23)L 32.8(SEP 21)L 33.6(SEP 20) Plt 321(SEP 24)342(SEP 23)360(SEP 21)361(SEP 20) Na 139(SEP 21)139(SEP 20)142(SEP 19) K 3.6(SEP 21)4.3(SEP 20)4.3(SEP 19) CO2 28(SEP 21)28(SEP 20)29(SEP 19) Cl 103(SEP 21)105(SEP 20)106(SEP 19) Cr 0.8(SEP 21)0.7(SEP 20)0.9(SEP 19) BUN 15(SEP 21)13(SEP 20)16(SEP 19) Glucose Random 87(SEP 21)96(SEP 20)93(SEP 19) Ca L 8.2(SEP 21)L 8.4(SEP 20)L 8.1(SEP 19) Medications Scheduled Meds (2):enoxaparin (Lovenox), vancomycin Unscheduled Meds: None PRN Meds (7):acetaminophen-hydrocodone (Amado 7.5/325 oral tablet), acetaminophen-hydrocodone (Amado 7.5/325 oral tablet), diazepam (Valium), diphenhydrAMINE, hydromorphone (Dilaudid), hydromorphone (Dilaudid), zolpidem (Ambien) One Time Meds: None Continuous Infusions: None ALL LABS REVIEW AND ALL RADIOLOGY REPORTS REVIEWED IMPRESSION LLE dermatits better PLAN ok to dc home Extracted from: Title: Clinical Document Author: Mehdi Liu Date: 09/19/14 PATIENT NAME: ANKUR ALVARADO ATTENDING PHYSICIAN: MEHDI LIU DATE OF ADMISSION: 09/19/2014 *_*_* HISTORY OF PRESENT ILLNESS: The patient is a 68-year-old male who underwent a total knee arthroplasty approximately a week ago. I had seen the patient on follow up yesterday after a call from the family concerned about some blistering around the calf and he was sent for Doppler the day before and the Doppler was negative, but he was asked to come in person to the clinic so that I could evaluate him. Upon evaluation yesterday, the patient was having some type of allergic type reaction with a rash and hives extending up the buttock and lumbar region. I could not definitely ascertain if he had the beginnings of early cellulitis of the surgical site of that left knee and leg. There was some erythema, but the color was more in line with possible allergic reaction to some type of medication and that is what the family had thought. Nonetheless, we had recommended the patient be admitted to the hospital to be on IV antibiotics, given his recent total knee arthroplasty surgery as well as further workup while in the inpatient setting. The patient upon my initial evaluation showed that he appears the patient be just somewhat tired and was concerned that he may be having some anemia and recommend to the patient to proceed forth with admission for IV antibiotics, check his blood work and for additional workup. The patient was admitted and subsequently seen in the hospital with the family and I conveyed the treatment plan. Will start him on a course of vancomycin and clindamycin. Will go ahead and reconcile Dr. Ruba Rosales, who had seen him before, and get blood cultures and chest x-ray, additional ancillary studies including a UA and his laboratory studies, check his hemoglobin and white count. PHYSICAL EXAMINATION: VITAL SIGNS: Current temperature of 98.7, blood pressure is 130/78, pulse is approximately about 70 to 80, respirations 18, oxygen saturation on room air at approximately 99%. HEENT: Normocephalic, atraumatic. Pupils were equal, round, and reactive to light and accommodation and extraocular movements are intact. HEART: Regular rhythm, S1, S2 noted. LUNGS: Clear auscultation bilaterally without any wheezing or rhonchi. ABDOMEN: Soft, nontender, nondistended, negative rebound or rigidity. Bowel sounds x 4. EXTREMITIES: Examination of the incision shows it was intact. Just some spot scant serous drainage on the dressing. Both the calf and thigh compartments are soft x 4. He does have some mild redness but not necessarily what I would call erythema, but he does have some blotching with urticaria and hives extending up to the posterior thigh and buttock region on the left side to his lumbar spine. Distally EHL showed dorsiflexion, plantar flexion, inversion, eversion 4/5. He has good sensation along superficial, deep peroneal as well as facet dermatomes. Dorsalis pedis, posterior pulses were 2/4, and has no sensory changes. LABORATORY DATA: Upon admission at 09/19/2014 shows the white count is a 12.6, on discharge was 12.4, hemoglobin of 8.7, hematocrit was at 27. Discharge hemoglobin 8.9, platelet count 396 with sodium 140, potassium 4.3, chloride 106, CO2 29 with a creatinine 0.9, BUN 16. He had a UA completed that was found to be negative. IMAGING AND DIAGNOSTIC STUDIES: His chest x-ray is still pending. Once again Doppler study on the was found to be negative. MICROBIOLOGY CULTURE RESULTS: Initial blood cultures have been taken as well. REVIEW OF SYSTEMS As noted above. PAST MEDICAL HISTORY: Once again including: Total knee arthroplasty of left knee, status post 1 week. He also has a history of benign prostate enlargement. PAST SURGICAL HISTORY: As noted above along with prior arthroscopy of the knee and meniscectomy. MEDICATIONS Please refer to MAR list. IMPRESSION: 1. Status post 1 week from a total knee arthroplasty of the right knee with a possible allergic reaction to something or medication, etiology is unknown at this time. 2. Possible development of cellulitis of the left leg and a Doppler study was negative, has no DVT. PLAN: We will go ahead and start him on aggressive course of vancomycin and clindamycin. We will consult Dr. Ruba Rosales and will await the chest x- ray, blood culture results. I will go ahead and transfuse him 2 units of PRBCs and will recheck his laboratory studies in the morning. We will go ahead and start course of therapy as well as Lovenox as well as weightbearing as tolerated, range of motion to the knee. The family is aware of treatment plan that we fully outlined above. All questions answered to their full complete satisfaction. They verbalized full complete understanding. _*_*_ Dictated by: MEHDI LIU DO cc: HEEL SHAPER / M: MUNIRA HEEL SHAPER/[id number] Doc#: [id number]//[id number]/
--- OUTSIDE RECORDS SUMMARY | 2018-05-06 19:50 | XMS REPORT | Summary of Care ---
Author Author [facility] Address Unknown Phone Unavailable Encounter HQ Reymundontr_jey(FIN) [id number] Date(s): 12/24/14 - 01/22/15 [facility] Discharge Disposition: Home Attending Physician: Mehdi [...]
--- OUTSIDE RECORDS SUMMARY | 2018-05-06 19:50 | XMS REPORT | Summary of Care ---
Author Author [facility] Address Unknown Phone Unavailable Encounter HQ Kodakr_jey(FIN) [id number] Date(s): 09/14/14 - 10/13/14 [facility] Discharge Disposition: Home Attending Physician: Mehdi Baron [...]
--- OUTSIDE RECORDS SUMMARY | 2018-05-06 19:50 | XMS REPORT | Summary of Care ---
Author Organization Unknown Address Unknown Phone Unavailable Encounter HQ Grayson_jey(ANA) [id number] Date(s): 09/11/14 - 09/13/14 [facility] [address] [place] [address]- Discharge Disposition: Home Physician Attending: Mehdi Baron Physician Admitting: Mehdi Baron Physician_Referring: Mehdi Baron Vital Signs 1 2 3 Most recent to oldest [Reference Range]: 165.1 cm (08/30/14 8:05 AM) Height 98.6 DegF (09/13/14 8:22 AM) 98.9 DegF (09/13/14 4:10 AM) 98 DegF (09/13/14 12:47 AM) Temperature Oral [96.4-99.1 DegF] 162/75 mmHg *HI* (09/13/14 8:22 AM) 146/79 mmHg *HI* (09/13/14 4:10 AM) 155/71 mmHg *HI* (09/13/14 12:47 AM) Blood Pressure [90-140/60-90 mmHg] 22 BRMIN *HI* (09/13/14 9:25 AM) 14 BRMIN (09/13/14 8:22 AM) 18 BRMIN (09/13/14 4:10 AM) Respiratory Rate [14-20 BRMIN] 103 bpm *HI* (09/13/14 8:22 AM) 83 bpm (09/13/14 4:10 AM) 76 bpm (09/13/14 12:47 AM) Peripheral Pulse Rate [60-100 bpm] 72.273 kg (08/30/14 8:05 AM) Weight 26.51 m2 (08/30/14 8:05 AM) Body Mass Index Problem List Condition Effective Dates Status Health Status Informant Knee joint Active pain(Confirmed)1 Osteoarthritis(Confi Resolved rmed) Prostate Resolved enlargement(Confirme d) Seasonal Resolved allergies(Confirmed) 1left knee Allergies, Adverse Reactions, Alerts Substance Reaction Severity Status NKDA Active Medications Al hydroxide/Mg hydroxide/simethicone 200 mg-200 mg-20 mg/5 mL oral suspension 30 mL, Route: PO, Drug Form: SUSP, Dosing Weight 72.273, kg, Q4H, PRN Indigestio n, Start date: 09/11/14 8:30:00, Duration: 30 day, Stop date: 10/11/14 8:29:00 Notes: (aluminum hydroxide-magnesium hyd-simethicone [phone]/5ml 30 ml ud S US) Start Date: 09/11/14 Stop Date: 09/13/14 Status: Discontinued Ambien 5 mg, 1 tab, Route: PO, Drug form: TAB, Bedtime, PRN Sleep, Start date: 09/11/14 17:49:00, Duration: 30 day, Stop date: 10/11/14 17:48:00 Notes: (Same As: Ambien) Start Date: 09/11/14 Stop Date: 09/13/14 Status: Discontinued Ancef 2 gm, Route: IVPB, ONCE, Dosing Weight 72.273, kg, Start date: 09/11/14 7:31:00, Duration: 1 doses or times, Stop date: 09/11/14 7:31:00 Start Date: 09/11/14 Stop Date: 09/11/14 Status: Completed ceFAZolin (SCIP) 1 gm, 100 mL, Route: IVPB, Drug form: INJ, ABXQ6H, Dosing Weight 72.273, kg, Sta rt date: 09/11/14 14:00:00, Duration: 3 doses or times, Stop date: 09/12/14 2:00 :00 Start Date: 09/11/14 Stop Date: 09/12/14 Status: Completed cefepime + Sodium Chloride 0.9% IV 100 mL 1 gm, Route: IVPB, ABXQ8H, Dosing Weight 72.273, kg, (CrCl >/=50 ml/min), Start date: 09/12/14 20:00:00, Duration: 30 day, Stop date: 10/12/14 12:00:00 Notes: (Same As: Maxipime) MEDICATION WASTE Product Size: 1000 mgProduc t Wasted: ___ mg Start Date: 09/12/14 Stop Date: 09/13/14 Status: Discontinued CeleBREX 200 mg oral capsule 200 mg=1 cap, PO, Daily, # 30 cap, 0 Refill(s) Start Date: 08/30/14 Status: Ordered Dilaudid 1 mg, 1 mL, Route: IV, Drug form: INJ, Q4H, Dosing Weight 72.273, kg, PRN Pain S core 7-10, Start date: 09/12/14 12:43:00, Duration: 30 day, Stop date: 10/12/14 12:42:00 Start Date: 09/12/14 Stop Date: 09/13/14 Status: Discontinued diphenhydrAMINE 12.5 mg, 0.5 tab, Route: PO, Drug form: TAB, Q6H, Dosing Weight 72.273, kg, PRN Itching, Start date: 09/11/14 8:30:00, Duration: 30 day, Stop date: 10/11/14 8:2 9:00 Start Date: 09/11/14 Stop Date: 09/13/14 Status: Discontinued diphenhydrAMINE 12.5 mg, Route: IVP, Drug form: INJ, Q6H, Dosing Weight 72.273, kg, PRN Itching, Start date: 09/11/14 8:49:00, Duration: 30 day, Stop date: 10/11/14 8:48:00 Start Date: 09/11/14 Stop Date: 09/11/14 Status: Discontinued docusate 100 mg, 1 cap, Route: PO, Drug form: CAP, BID, Dosing Weight 72.273, kg, Start d ate: 09/11/14 9:00:00, Duration: 30 day, Stop date: 10/10/14 17:00:00 Notes: (Same as: Colace) (Do Not Crush) Start Date: 09/11/14 Stop Date: 09/13/14 Status: Discontinued doxazosin 4 mg oral tablet 4 mg=1 tab, PO, Daily, # 30 tab, 0 Refill(s) Start Date: 08/30/14 Status: Ordered enoxaparin 30 mg, Route: SUB-Q, Drug form: INJ, [id number], Dosing Weight 72.273, kg, Start d ate: 09/11/14 9:00:00, Duration: 30 day, Stop date: 10/10/14 21:00:00 Start Date: 09/11/14 Stop Date: 09/11/14 Status: Deleted enoxaparin 30 mg, 0.3 mL, Route: SUB-Q, Drug form: INJ, [id number], Dosing Weight 72.273, kg, Start date: 09/11/14 21:00:00, Duration: 30 day, Stop date: 10/11/14 9:00:00 Notes: (Same as: Lovenox) Start Date: 09/11/14 Stop Date: 09/13/14 Status: Discontinued fentaNYL 25 microgram, Route: IVP, Q5Min, Dosing Weight 72.273, kg, PRN Pain Score 4-6, S tart date: 09/11/14 8:49:00, Duration: 4 doses or times, Stop date: Limited # of times Start Date: 09/11/14 Stop Date: 09/11/14 Status: Discontinued fentaNYL 50 microgram, Route: IVP, Q5Min, Dosing Weight 72.273, kg, PRN Pain Score 7-10, Start date: 09/11/14 8:49:00, Duration: 2 doses or times, Stop date: Limited # o f times Start Date: 09/11/14 Stop Date: 09/11/14 Status: Discontinued flumazenil 0.2 mg, Route: IVP, PRN, Dosing Weight 72.273, kg, PRN Benzodiazepine Reversal, Initial dose, Start date: 09/11/14 8:49:00, Duration: 30 day, Stop date: 5 8:48:00 Start Date: 09/11/14 Stop Date: 09/11/14 Status: Discontinued glycopyrrolate 0.2 mg, Route: IVP, Q5Min, Dosing Weight 72.273, kg, PRN Bradycardia, Start date : 09/11/14 8:49:00, Duration: 3 doses or times, Stop date: Limited # of times Start Date: 09/11/14 Stop Date: 09/11/14 Status: Discontinued hydrALAZINE 10 mg, Route: IVP, Q20Min, Dosing Weight 72.273, kg, PRN Elevated BP, Start date : 09/11/14 8:49:00, Duration: 2 doses or times, Stop date: Limited # of times Start Date: 09/11/14 Stop Date: 09/11/14 Status: Discontinued hydromorphone 0.3 mg, 0.3 mL, Route: IVP, Drug form: INJ, Q4H, Dosing Weight 72.273, kg, PRN P ain Score 7-10, Start date: 09/11/14 8:30:00, Duration: 30 day, Stop date: 10/11 8:29:00 Start Date: 09/11/14 Stop Date: 09/13/14 Status: Discontinued hydromorphone 0.5 mg, Route: IVP, Q5Min, Dosing Weight 72.273, kg, PRN Pain Score 7-10, Start date: 09/11/14 8:49:00, Duration: 4 doses or times, Stop date: Limited # of time s Start Date: 09/11/14 Stop Date: 09/11/14 Status: Discontinued HYDROmorphone 0.5mg/mL MUNICIPAL BOND TRADER (15mg/30 mL) 15 mg 15 mg, 30 mL, Route: IV, Initial Loading Dose: 0 mg, MUNICIPAL BOND TRADER Dose: 0.2 mg, MUNICIPAL BOND TRADER Locko ut: 8 minutes, Continuous Basal Rate: 0 mg, 4 Hour Limit (In MG): 6, Drug Form: INJ, Continuous, Start date: 09/11/14 8:30:00, Duration: 30 day, Stop date: 09/20 06/03 8:29:00 Notes: (Same as: Dilaudid) conc=0.5 mg/mlHydromorphone MUNICIPAL BOND TRADER Dose: ;Delay: ;Basal: Start Date: 09/11/14 Stop Date: 09/12/14 Status: Discontinued Keflex 500 mg oral capsule 500 mg=1 cap, PO, QID, X 10 day, # 40 cap, 0 Refill(s) Start Date: 09/11/14 Stop Date: 09/21/14 Status: Ordered ketOROLAC 30 mg, Route: IVP, ONCE, Dosing Weight 72.273, kg, Start date: 09/11/14 8:49:00, Duration: 1 doses or times, Stop date: 09/11/14 8:49:00 Start Date: 09/11/14 Stop Date: 09/11/14 Status: Completed Lactated Ringers Injection IV 1000 mL 1,000 mL, Rate: 25 ml/hr, Infuse over: 40 hr, Route: IV, Dosing Weight 72.273 kg , Total Volume: 1,000, Start date: 09/11/14 8:16:00, Duration: 30 day, Stop date : 10/11/14 8:15:00 Start Date: 09/11/14 Stop Date: 09/11/14 Status: Discontinued Lactated Ringers IV 1,000 mL 1,000 mL, Rate: 75 ml/hr, Infuse over: 13.3 hr, Route: IV, Dosing Weight 72.273 kg, Total Volume: 1,000, Start date: 09/11/14 8:30:00, Duration: 30 day, Stop da te: 10/11/14 8:29:00 Start Date: 09/11/14 Stop Date: 09/13/14 Status: Discontinued Lovenox 30 mg/0.3 mL subcutaneous solution 30 mg, SUB-Q, Q12H, X 14 day, # 28 inj, 0 Refill(s) Start Date: 09/11/14 Stop Date: 09/25/14 Status: Ordered Lunesta 3 mg, Route: PO, Bedtime, Dosing Weight 72.273, kg, Start date: 09/11/14 21:00:0 0, Duration: 30 day, Stop date: 10/10/14 21:00:00 Start Date: 09/11/14 Stop Date: 09/11/14 Status: Deleted meperidine 12.5 mg, Route: IVP, Q30Min, Dosing Weight 72.273, kg, PRN Other -See Comment, F or shivering, Start date: 09/11/14 8:49:00, Duration: 2 doses or times, Stop berto e: Limited # of times Start Date: 09/11/14 Stop Date: 09/11/14 Status: Discontinued metoprolol 1 mg, Route: IVP, Q5Min, Dosing Weight 72.273, kg, PRN Other -See Comment, Start date: 09/11/14 8:49:00, Duration: 5 doses or times, Stop date: Limited # of paxton es Start Date: 09/11/14 Stop Date: 09/11/14 Status: Discontinued morphine Sulfate 4 mg, Route: IVP, Q5Min, Dosing Weight 72.273, kg, PRN Pain Score 7-10, Start da te: 09/11/14 8:49:00, Duration: 3 doses or times, Stop date: Limited # of times Start Date: 09/11/14 Stop Date: 09/11/14 Status: Discontinued morphine Sulfate 2 mg, Route: IVP, Q5Min, Dosing Weight 72.273, kg, PRN Pain Score 4-6, Start berto e: 09/11/14 8:49:00, Duration: 5 doses or times, Stop date: Limited # of times Start Date: 09/11/14 Stop Date: 09/11/14 Status: Discontinued naloxone 0.04 mg, 0.1 mL, Route: IVP, Drug form: INJ, Q2MIN, Dosing Weight 72.273, kg, MA N Narcotic Reversal, Start date: 09/11/14 8:30:00, Duration: 30 day, Stop date: 10/11/14 8:29:00 Notes: Same as Narcan Start Date: 09/11/14 Stop Date: 09/13/14 Status: Discontinued naloxone 0.04 mg, Route: IVP, Q2MIN, Dosing Weight 72.273, kg, PRN Narcotic Reversal, Sta rt date: 09/11/14 8:49:00, Duration: 8 doses or times, Stop date: Limited # of t imes Start Date: 09/11/14 Stop Date: 09/11/14 Status: Discontinued [place] 7.5/325 oral tablet 1 tab, Route: PO, Drug Form: TAB, Dosing Weight 72.273, kg, Q4H, PRN Pain Score 4-6, Start date: 09/11/14 8:30:00, Duration: 30 day, Stop date: 10/11/14 8:29:00 Notes: Same as [place] 325-7.5mg Do not exceed 4gm/day of acetaminophen. Start Date: 09/11/14 Stop Date: 09/13/14 Status: Discontinued [place] 7.5/325 oral tablet 2 tab, Route: PO, Drug Form: TAB, Dosing Weight 72.273, kg, Q4H, PRN Pain Score 7-10, Start date: 09/11/14 8:30:00, Duration: 30 day, Stop date: 10/11/14 8:29:0 0 Notes: Same as [place] 325-7.5mg Do not exceed 4gm/day of acetaminophen. Start Date: 09/11/14 Stop Date: 09/13/14 Status: Discontinued [place] 7.5/325 oral tablet 2 tab, Route: PO, Drug Form: TAB, Dosing Weight 72.273, kg, Q4H, PRN Pain Score 7-10, Start date: 09/12/14 12:43:00, Duration: 30 day, Stop date: 10/12/14 12:42 :00 Start Date: 09/12/14 Stop Date: 09/12/14 Status: Deleted [place] 7.5/325 oral tablet 1 tab, Route: PO, Drug Form: TAB, Dosing Weight 72.273, kg, Q4H, PRN Pain Score 4-6, Start date: 09/12/14 12:43:00, Duration: 30 day, Stop date: 10/12/14 12:42: 00 Start Date: 09/12/14 Stop Date: 09/12/14 Status: Deleted ondansetron 4 mg, 2 mL, Route: IVP, Drug form: INJ, Q8H, Dosing Weight 72.273, kg, PRN Nause a & Vomiting, Start date: 09/11/14 8:30:00, Duration: 30 day, Stop date: 10/11/14 8:29:00 Notes: (Same as: Daisy) MEDICATION WASTE Product Size: 4 mgProduct Was sravani: ___ mg Start Date: 09/11/14 Stop Date: 09/13/14 Status: Discontinued ondansetron 4 mg, Route: IVP, ONCE, Dosing Weight 72.273, kg, PRN Nausea & Vomiting, Start date: 09/11/14 8:49:00 Start Date: 09/11/14 Stop Date: 09/11/14 Status: Discontinued oxyCODONE 10 mg, Route: PO, Drug form: TAB, Q4H, Dosing Weight 72.273, kg, PRN Pain Score 7-10, Start date: 09/11/14 8:49:00, Duration: 30 day, Stop date: 10/11/14 8:48:0 0 Start Date: 09/11/14 Stop Date: 09/11/14 Status: Discontinued oxyCODONE 5 mg, Route: PO, Drug form: TAB, Q4H, Dosing Weight 72.273, kg, PRN Pain Score 4 -6, Start date: 09/11/14 8:49:00, Duration: 30 day, Stop date: 10/11/14 8:48:00 Start Date: 09/11/14 Stop Date: 09/11/14 Status: Discontinued pneumococcal 23-valent vaccine 0.5 mL, Route: IM, Drug Form: INJ, Daily, Start date: 09/12/14 9:00:00, Duration : 1 doses or times, Stop date: 09/12/14 9:00:00 Notes: (Same as: Pneumovax 23) Refrigerate Start Date: 09/12/14 Stop Date: 09/12/14 Status: Completed promethazine 6.25 mg, Route: IVPB, ONCE, Dosing Weight 72.273, kg, PRN Nausea & Vomiting, Start date: 09/11/14 8:49:00 Start Date: 09/11/14 Stop Date: 09/11/14 Status: Discontinued Tylenol 650 mg, 2 tab, Route: PO, Drug form: TAB, Q6H, Dosing Weight 72.273, kg, PRN For Temp > 100.4 F, Start date: 09/11/14 8:30:00, Duration: 30 day, Stop date: 10/11/14 8:29:00 Notes: Do not exceed 4 gm/day. (Same as: Tylenol) Start Date: 09/11/14 Stop Date: 09/13/14 Status: Discontinued Valium 5 mg oral tablet 5 mg=1 tab, PO, QID, PRN Spasm, # 30 tab, 0 Refill(s) Start Date: 09/11/14 Stop Date: 10/11/14 Status: Ordered Vitamin D3 0 Refill(s) Start Date: 08/30/14 Status: Ordered Results BLOOD BANK RESULTS 1 2 3 Most recent to oldest [Reference Range]: A POS *Unknown* (09/11/14 5:43 AM) A POS *Unknown* (08/30/14 8:57 AM) ABO/Rh Negative (09/11/14 5:43 AM) Negative (08/30/14 8:57 AM) Antibody Scrn Product available (08/30/14 8:36 AM) RBC product ELECTROLYTES 1 2 3 Most recent to oldest [Reference Range]: 143 mEq/L (08/30/14 8:57 AM) Sodium Lvl [135-145 mEq/L] 4.1 mEq/L (08/30/14 8:57 AM) Potassium Lvl [3.5-5.1 mEq/L] 109 mEq/L (08/30/14 8:57 AM) Chloride Lvl [95-109 mEq/L] 25 mEq/L (08/30/14 8:57 AM) CO2 [24-32 mEq/L] 13.1 mEq/L (08/30/14 8:57 AM) AGAP [10.0-20.0 mEq/L] CHEM PANEL 1 2 3 Most recent to oldest [Reference Range]: 0.8 mg/dL (09/12/14 4:25 AM) 0.7 mg/dL (08/30/14 8:57 AM) Creatinine Lvl [0.5-1.4 mg/dL] 91 mL/min/1.73m2 1 *NA* (09/12/14 4:25 AM) 96 mL/min/1.73m2 2 *NA* (08/30/14 8:57 AM) eGFR 15 mg/dL (08/30/14 8:57 AM) BUN [7-22 mg/dL] 79 mg/dL 3 (08/30/14 8:57 AM) Glucose Lvl [70-99 mg/dL] 8.8 mg/dL (08/30/14 8:57 AM) Calcium Lvl [8.5-10.5 mg/dL] 1Result Comment: The [...] be mul tiplied by the estimated BMI. 3Interpretive Data: Adult reference range values reflect the clinical guidelines of the [employer]. URINE AND STOOL 1 2 3 Most recent to oldest [Reference Range]: Clear (08/30/14 8:59 AM) UA Turbidity [Clear] Ltyellow *NA* (08/30/14 8:59 AM) UA Color 5.0 (08/30/14 8:59 AM) UA pH [5.0-8.0] 1.017 (08/30/14 8:59 AM) UA Spec Grav [<=1.030] Negative mg/dL *NA* (08/30/14 8:59 AM) UA Glucose [Negative mg/dL] Negative (08/30/14 8:59 AM) UA Blood [Negative] Negative mg/dL *NA* (08/30/14 8:59 AM) UA Ketones [Negative mg/dL] Negative mg/dL (08/30/14 8:59 AM) UA Protein [Negative mg/dL] <=1.0 mg/dL *NA* (08/30/14 8:59 AM) UA Urobilinogen [0.1-1.0 mg/dL] Negative *NA* (08/30/14 8:59 AM) UA Bili [Negative] Negative (08/30/14 8:59 AM) UA Leuk Est [Negative] Negative (08/30/14 8:59 AM) UA Nitrite [Negative] <1 /HPF (08/30/14 8:59 AM) UA WBC [0-5 /HPF] 2 /HPF (08/30/14 8:59 AM) UA RBC [0-2 /HPF] None Seen *NA* (08/30/14 8:59 AM) UA Sq Epi HEMATOLOGY 1 2 3 Most recent to oldest [Reference Range]: 12.4 K/CMM *HI* (09/13/14 5:34 AM) 12.1 K/CMM *HI* (09/12/14 1:14 PM) 4.9 K/CMM (08/30/14 8:57 AM) WBC [3.7-10.4 K/CMM] 3.11 M/CMM *LOW* (09/13/14 5:34 AM) 3.65 M/CMM *LOW* (09/12/14 1:14 PM) 4.80 M/CMM (08/30/14 8:57 AM) RBC [4.70-6.10 M/CMM] 8.9 g/dL *LOW* (09/13/14 5:34 AM) 10.5 g/dL *LOW* (09/12/14 1:14 PM) 13.6 g/dL *LOW* (08/30/14 8:57 AM) Hgb [14.0-18.0 g/dL] 26.7 % *LOW* (09/13/14 5:34 AM) 31.4 % *LOW* (09/12/14 1:14 PM) 41.6 % *LOW* (08/30/14 8:57 AM) Hct [42.0-54.0 %] 85.7 fL (09/13/14 5:34 AM) 86.1 fL (09/12/14 1:14 PM) 86.7 fL (08/30/14 8:57 AM) MCV [80.0-94.0 fL] 28.7 pg (09/13/14 5:34 AM) 28.7 pg (09/12/14 1:14 PM) 28.4 pg (08/30/14 8:57 AM) MCH [27.0-31.0 pg] 33.5 g/dL (09/13/14 5:34 AM) 33.4 g/dL (09/12/14 1:14 PM) 32.7 g/dL (08/30/14 8:57 AM) MCHC [32.0-36.0 g/dL] 13.8 % (09/13/14 5:34 AM) 13.7 % (09/12/14 1:14 PM) 13.9 % (08/30/14 8:57 AM) RDW [11.5-14.5 %] 123 K/CMM *LOW* (09/13/14 5:34 AM) 126 K/CMM *LOW* (09/12/14 1:14 PM) 127 K/CMM *LOW* (09/12/14 4:25 AM) Platelet [133-450 K/CMM] 8.7 fL (09/13/14 5:34 AM) 8.8 fL (09/12/14 1:14 PM) 9.2 fL (08/30/14 8:57 AM) MPV [7.4-10.4 fL] 84.6 % *HI* (09/13/14 5:34 AM) 83.8 % *HI* (09/12/14 1:14 PM) 67.1 % (08/30/14 8:57 AM) Segs [45.0-75.0 %] 8.1 % *LOW* (09/13/14 5:34 AM) 8.5 % *LOW* (09/12/14 1:14 PM) 25.3 % (08/30/14 8:57 AM) Lymphocytes [20.0-40.0 %] 7.0 % (09/13/14 5:34 AM) 7.2 % (09/12/14 1:14 PM) 6.7 % (08/30/14 8:57 AM) Monocytes [2.0-12.0 %] 0.1 % (09/12/14 1:14 PM) 0.2 % (08/30/14 8:57 AM) Eosinophils [0.0-4.0 %] 0.3 % (09/13/14 5:34 AM) 0.4 % (09/12/14 1:14 PM) 0.7 % (08/30/14 8:57 AM) Basophils [0.0-1.0 %] 10.5 K/CMM *HI* (09/13/14 5:34 AM) 10.1 K/CMM *HI* (09/12/14 1:14 PM) 3.3 K/CMM (08/30/14 8:57 AM) Segs-Bands # [1.5-8.1 K/CMM] 1.0 K/CMM (09/13/14 5:34 AM) 1.0 K/CMM (09/12/14 1:14 PM) 1.2 K/CMM (08/30/14 8:57 AM) Lymphocytes # [1.0-5.5 K/CMM] 0.9 K/CMM *HI* (09/13/14 5:34 AM) 0.9 K/CMM *HI* (09/12/14 1:14 PM) 0.3 K/CMM (08/30/14 8:57 AM) Monocytes # [0.0-0.8 K/CMM] 16.6 seconds *HI* (09/12/14 4:25 AM) 14.6 seconds (08/30/14 8:57 AM) PT [12.0-14.7 seconds] 1.33 4 *HI* (09/12/14 4:25 AM) 1.13 5 (08/30/14 8:57 AM) INR [0.85-1.17] 35.4 seconds 6 (09/12/14 4:25 AM) 32.7 seconds 7 (08/30/14 8:57 AM) PTT [22.9-35.8 seconds] 4Interpretive Data: RECOMMENDED RANGES FOR PROTIME INR: 2.0-3.0 for most medical and surgical thromboembolic states. 2.5-3.5 for artificial heart valves and recurrent embolism. INR SHOULD BE USED ONLY FOR PATIENTS ON STABLE ANTICOAGULANT THERAPY. 5Interpretive Data: RECOMMENDED RANGES FOR PROTIME INR: 2.0-3.0 for most medical and surgical thromboembolic states. 2.5-3.5 for artificial heart valves and recurrent embolism. INR SHOULD BE USED ONLY FOR PATIENTS ON STABLE ANTICOAGULANT THERAPY. 6Interpretive Data: Heparin Therapeutic Range: 57 - 92 Seconds 7Interpretive Data: Heparin Therapeutic Range: 57 - 92 Seconds Immunizations Vaccine Date Refusal Reason pneumococcal 23-valent vaccine 09/12/14 Procedures Procedure Date Related Diagnosis Body Site Meniscectomy of knee Social History Social History Type Response Smoking Status Never smoker; Exposure to Tobacco Smoke None; Cigarette Smoking Last 365 Days No; Reg Smoking Cessation Counseling No Assessment and Plan No data available for this section
[2018-05-06] MEDS ORDERED: DIATRIZOATE MEGL/DIATRIZOA SOD 30 ML BTL PO ONE (20:48)
[2018-05-06 20:49] LABS: BASOPHILS % 0.1 % (0.0-1.0); HEMATOCRIT 42.4 % (38.2-49.6); HEMOGLOBIN 13.2 g/dL (14.0-18.0); LYMPHOCYTES # (AUTO) 0.9 (1.0-3.2); LYMPHOCYTES % 6.3 % (18.0-39.1); MEAN CORPUSCULAR HEMOGLOBIN 27.8 pg (28-32); MEAN CORPUSCULAR HGB CONC 31.1 g/dL (31-35); MEAN CORPUSCULAR VOLUME 89.3 fL (81-99); MONOCYTES # (AUTO) 0.4 (0.2-0.8); MONOCYTES % 2.9 % (4.4-11.3); NEUTROPHILS # (AUTO) 12.9 (2.1-6.9); NEUTROPHILS % 90.4 % (38.7-80.0); PLATELET COUNT 213 x10e3/uL (140-360); RED BLOOD COUNT 4.75 x10e6/uL (4.3-5.7); RED CELL DISTRIBUTION WIDTH 14.3 % (11.7-14.4)
[2018-05-06 21:18] LABS: ALANINE AMINOTRANSFERASE 15 IU/L (0-55); ALBUMIN 4.4 g/dL (3.5-5.0); ALBUMIN/GLOBULIN RATIO 1.6 (0.8-2.0); ALKALINE PHOSPHATASE 44 IU/L (40-150); AMYLASE 104 U/L (25-125); ANION GAP 16.9 mmol/L (8-16); BLOOD UREA NITROGEN 17 mg/dL (7-26); BUN/CREATININE RATIO 17 (6-25); CALCIUM 9.4 mg/dL (8.4-10.2); CARBON DIOXIDE 24 mmol/L (22-29); CHLORIDE 107 mmol/L (98-107); CREATININE, SERUM 1.01 mg/dL (0.72-1.25); EST GLOMERULAR FILTRATION RATE > 60 ML/MIN (60-); GLUCOSE 101 mg/dL (74-118); LIPASE 37 U/L (8-78); MAGNESIUM 2.5 MG/DL (1.3-2.1); POTASSIUM 3.9 mmol/L (3.5-5.1); SODIUM 144 mmol/L (136-145)
[2018-05-06] MEDS ORDERED: MORPHINE SULFATE 5 MG/ML VIAL IV ONE (21:45)
[2018-05-06] MEDS ORDERED: ONDANSETRON HCL INJ 2MG/ML 2ML 2 MG/ML VIAL IV ONE (21:45)
[2018-05-06] MEDS ORDERED: MORPHINE SULFATE INJ 4 MG/ML INJ 1ML IV ONE (21:45)
[2018-05-06 22:24] LABS: BILIRUBIN,URINE NEGATIVE (NEGATIVE); CLARITY,URINE HAZY (CLEAR); COLOR,URINE YELLOW (YELLOW); KETONES,URINE TRACE (NEGATIVE); LEUKOCYTE ESTERASE ,URINE NEGATIVE (NEGATIVE); NITRITE,URINE NEGATIVE (NEGATIVE); PROTEIN,URINE DIPSTICK 1+ (NEGATIVE); URINE UROBILINOGEN 0.2 mg/dL (0.2 - 1)
[2018-05-06 22:41] LABS: AMORPHOUS SEDIMENT,URINE MANY (FEW); BACTERIA,URINE MODERATE /HPF; CALCIUM OXALATE CRYSTALS,UR MODERATE (FEW); EPITHELIAL CELLS,URINE RARE /LPF; WBC,URINE (MAN) 0-5 /HPF (0-5)
--- NOTE | 2018-05-06 22:59 | Diagnostic Imaging Report ---
EXAM: CT Abdomen and Pelvis WITH contrast INDICATION: llq pain COMPARISON: None. TECHNIQUE: Abdomen and pelvis were scanned utilizing a multidetector helical scanner from the lung base to the pubic symphysis after administration of IV contrast. Coronal and sagittal reformations were obtained. Routine protocol was performed. Scan was performed when during portal venous phase. IV CONTRAST: 100 mL of Isovue-370 ORAL CONTRAST: Gastrografin COMPLICATIONS: None RADIATION DOSE: Total DLP: 325.2 mGy*cm Estimated effective dose: (DLP x 0.015 x size factor) mSv Dose modulation, iterative reconstruction, and/or weight based adjustment of the mA/kV was utilized to reduce the radiation dose to as low as reasonably achievable. FINDINGS: LINES and TUBES: None. LOWER THORAX: Right atrial and ventricular cardiac leads. HEPATOBILIARY: No focal hepatic lesions. No biliary ductal dilation. GALLBLADDER: No radio-opaque stones or sludge. No wall thickening. SPLEEN: No splenomegaly. PANCREAS: No focal masses or ductal dilatation. ADRENALS: No adrenal nodules KIDNEYS/URETERS: Kidneys enhance symmetrically. Renal cysts measuring up to 2.3 cm. Left inferior pole hyperattenuating 1.6 cm lesion measures 70 Hounsfield units (series 2 image 35). Additional smaller hypodensities are too small to characterize. Mild left hydronephrosis secondary to 0.4 x 0.3 x 0.3 cm stone at the ureteropelvic junction. Additional 0.2 cm nonobstructing calculus in the inferior left renal pole. GI TRACT: No abnormal distention, wall thickening, or evidence of bowel obstruction. There are diverticula within the colon without evidence of diverticulitis. Appendix is normal. PELVIC ORGANS/BLADDER: Prostate enlarged measuring 5 cm in transverse dimension. Bladder unremarkable. LYMPH NODES: No lymphadenopathy. VESSELS: There is mild atherosclerotic disease in the aorta and major arterial branches. PERITONEUM / RETROPERITONEUM: No free air or fluid. BONES: There are degenerative changes in the lumbar spine. SOFT TISSUES: Gluteal injection granulomas. IMPRESSION: 1. Mild left hydronephrosis secondary to a 0.4 cm stone at the ureteropelvic junction. 2. Additional nonobstructing left renal calculus. 3. Indeterminate 1.6 cm lesion in the inferior pole of the left kidney. Recommend nonemergent abdomen CT or MRI without and with contrast. 4. Colonic diverticulosis. 5. Prostatomegaly. Signed by: DR. Elio Freitas MD on 05/06/2018 10:55 PM
[2018-05-06] MEDS ORDERED: SODIUM CHLORIDE 0.9% 50ML 50 ML ONE (23:25)
[2018-05-06] MEDS ORDERED: IOPAMIDOL 370 MG/ML 200 ML INFUS..BTL INJ ONE (23:25)
[2018-05-07 00:03] VITALS: BP 162/87
== END 2018-05-07 00:30 | disposition home or self-care (01) ==
LOC: ER 19:45
DX: R10.32 Left lower quadrant pain (principal); N20.0 Calculus of kidney
CPT/HCPCS: 36415; 74177; 80053; 81001; 82150; 83690; 83735; 85025; 99283; Q9967

== ENCOUNTER → 2018-06-13 | Outpatient (CLI) | payer MEDICARE ==
--- NOTE | 2018-06-13 14:37 | Diagnostic Imaging Report ---
Exam: Abdominal film Clinical History: Renal calculus Comparison: CT abdomen and pelvis 05/06/2018 DISCUSSION: Small left lower pole and left UP junction calculi are not identified by plain radiography. No additional suspicious calcifications projecting over the renal shadows or expected ureteral courses. Pelvic phleboliths. Calcified injection granulomata. Bowel gas pattern is nonobstructive. Regional skeletal structures intact with degenerative disc changes of the lumbar spine. IMPRESSION: Left UPJ calculus and nonobstructing left lower pole calculus described on the comparison CT are not identified by plain radiography. Signed by: Dr. Devyn Ford M.D. on 06/13/2018 2:34 PM
== END ==
LOC: RAD 13:58
PROVIDERS: ATTEND Urology
DX: N20.0 Calculus of kidney (principal)
CPT/HCPCS: 74018

== ENCOUNTER → 2018-07-06 | Outpatient (CLI) | payer MEDICARE ==
--- NOTE | 2018-07-06 15:31 | Diagnostic Imaging Report ---
EXAMINATION: CT of the abdomen and pelvis without contrast. TECHNIQUE: Spiral CT images of the abdomen and pelvis were performed from the lung bases to the lesser trochanters. No intravenous contrast was given per renal stone protocol. Coronal and sagittal reformatted images were obtained. COMPARISON: CT abdomen and pelvis with contrast 05/06/2018 CLINICAL HISTORY:Renal stone DISCUSSION: ABSENCE OF INTRAVENOUS CONTRAST DECREASES SENSITIVITY FOR DETECTION OF FOCAL LESIONS AND VASCULAR PATHOLOGY. ABDOMEN/PELVIS: LOWER THORAX: A ICD leads partially visualized. Lung bases unremarkable. HEPATOBILIARY:No focal hepatic lesions. No biliary ductal dilation. The gallbladder is normal. SPLEEN: No splenomegaly. PANCREAS: No focal masses or ductal dilatation. ADRENALS: No adrenal nodules. KIDNEYS/URETERS: Exophytic left upper pole renal cysts are unchanged. 1.6 cm exophytic left lower pole lesion has average attenuation 70-75 Hounsfield units, similar to that seen on the contrast-enhanced CT abdomen and pelvis 05/06/2018. Punctate (2 mm) left lower pole nonobstructing calculus is unchanged. Left hydronephrosis secondary to ureteropelvic junction calculus has resolved. The stone in question is no longer visualized. No right renal calculi or hydronephrosis. PELVIC ORGANS/BLADDER: Urinary bladder is incompletely distended but otherwise unremarkable. Prostate is markedly enlarged with mass effect upon the bladder base, as previously noted. PERITONEUM/RETROPERITONEUM: No ascites. No pneumoperitoneum. LYMPH NODES: No pelvic sidewall, retroperitoneal, or mesenteric lymphadenopathy. VESSELS: Limited evaluation without intravenous contrast. The abdominal aorta is nonaneurysmal. Atherosclerotic calcifications throughout. GI TRACT: The large bowel shows no distention or wall thickening. There are multiple sigmoid and, to a lesser extent descending colon diverticula without findings of diverticulitis. The appendix is normal. The stomach is collapsed with prominence of the rugal folds. No small bowel dilatation to suggest obstruction. BONES AND SOFT TISSUES: No focal soft tissue abnormalities. Multiple calcified injection granulomata in the subcutaneous gluteal fat. No osseous destructive lesions. Multilevel degenerative disc disease and facet arthropathy of the lumbar spine. IMPRESSION: Interval passage of left ureteropelvic junction calculus described on the comparison examination, with resolution of left hydronephrosis. Stable punctate nonobstructing left lower pole renal calculus. Unchanged 1.6 cm exophytic hyperdense lesion projecting from the lower pole of the left kidney, which likely represents a hemorrhagic or proteinaceous cyst. Definitive characterization with CT or MRI of the abdomen with and without contrast, renal mass protocol, is again suggested. Atherosclerotic vascular disease. Large bowel diverticulosis without evidence of diverticulitis. Prostatomegaly. Signed by: Dr. Devyn Ford M.D. on 07/06/2018 3:28 PM
== END ==
LOC: CT 14:16
PROVIDERS: ATTEND Urology
DX: N20.0 Calculus of kidney (principal)
CPT/HCPCS: 74176

== ENCOUNTER → 2018-10-17 | Day surgery (SDC) | payer MEDICARE ==
[2018-10-06 16:40] LABS: BASOPHILS % 0.3 % (0.0-1.0); EOSINOPHILS % 0.2 % (0.0-6.0); HEMATOCRIT 42.5 % (38.2-49.6); HEMOGLOBIN 13.1 g/dL (14.0-18.0); LYMPHOCYTES # (AUTO) 1.7 (1.0-3.2); MEAN CORPUSCULAR HEMOGLOBIN 27.1 pg (28-32); MEAN CORPUSCULAR HGB CONC 30.8 g/dL (31-35); MEAN CORPUSCULAR VOLUME 87.8 fL (81-99); MONOCYTES # (AUTO) 0.5 (0.2-0.8); MONOCYTES % 8.2 % (4.4-11.3); NEUTROPHILS % 64.1 % (38.7-80.0); PLATELET COUNT 188 x10e3/uL (140-360); RED BLOOD COUNT 4.84 x10e6/uL (4.3-5.7); RED CELL DISTRIBUTION WIDTH 14.6 % (11.7-14.4)
[~2018-10-17] MED LIST changes: +FENTANYL CITRATE/PF 100MCG/2 ML INJ ONE; +GLUCAGON FOR INJ 1 MG VIAL ONE; +HYOSCYAMINE 0.125 MG TAB ONE; +MIDAZOLAM HCL 2 MG/2 ML VIAL ONE; +PROPOFOL IV EMULSION 10 MG/ML 50 ML VIAL ONE
--- OUTSIDE RECORDS SUMMARY | 2018-10-17 05:53 | XMS REPORT | Continuity of Care Document ---
Author Author [employer] Address Unknown Phone Unavailable Care Team Providers Care Running Specialist Name Role Phone [place] Information [facility] Unavailable Unavailable Problems Problem Status Onset Date Classification Date Reported Comments Source CELLULITS TO LOWER EXTREMITY Active 09/19/2014 [facility] PAIN Active 09/18/2014 [facility] 715.16/[id number] Active 08/21/2014 [facility] UNK Active 08/21/2014 [facility] Knee joint pain1 Active Problem 01/25/2015 left knee [facility] Osteoarthritis Resolved Problem 01/25/2015 [facility] Prostate enlargement Resolved Problem 01/25/2015 [facility] Seasonal allergies Resolved Problem 01/25/2015 [facility] Final: Osteoarthrosis, Localized, Primary, Involving Lower Leg 12/21/2014 [facility] Final: Stiffness of Joint, Not Elsewhere Classified, Involving Lower Leg 12/21/2014 [facility] Final: Knee Joint Replaced by Other Means 12/21/2014 [facility] Final: Muscle Weakness 12/21/2014 [facility] Final: Abnormality of Gait 12/21/2014 [facility] Final: Edema 12/21/2014 [facility] Bradycardia Active Problem 05/07/2018 [facility] Weakness Active Problem 05/07/2018 [facility] LOC PRIM OSTEOART-L/LEG Active [facility] LT KNEE Active [facility] S/P TKR Active [facility] CELLULITIS OF LEG Active [facility] SWELLING OF LIMB Active [facility] Medications Medication Details Route Status Patient Instructions Ordering Provider Order Date Source Sodium Chloride 0.9% IV IV, 30 ml/hr, PRN, PRN Blood Transfusion, Start date: 09/19/14 22:22:00, Duration: 1, 100 ml No Longer Active 09/20/2014 [facility] normal saline 0.9% IV 100 mL 100 mL, Rate: 100 ml/hr, Infuse over: 1 hr, Route: IV, Dosing Weight 73.636 kg, Total Volume: 100, Priority: Routine, Start date: 09/19/14 22:17:00, Duration: 1 doses or times, Stop date: 09/19/14 23:16:00 Inactive 09/20/2014 [facility] Diphenhydramine 25 mg, 1 tab, Route: PO, Drug form: TAB, TID, Dosing Weight 73.636, kg, PRN Allergic reaction, Start date: 09/19/14 21:25:00, Duration: 30 day, Stop date: 10/19/14 21:24:00 No Longer Active 09/20/2014 [facility] Ambien 5 mg, 1 tab, Route: PO, Drug form: TAB, Bedtime, PRN Sleep, Start date: 09/19/14 21:21:00, Duration: 30 day, Stop date: 10/19/14 21:20:00Notes: (Same As: Ambien) No Longer Active 09/20/2014 [facility] Clindamycin 900 mg, 50 mL, Route: IVPB, Drug form: INJ, [id number], Dosing Weight 73.636, kg, Start date: 09/19/14 21:00:00, Duration: 30 day, Stop date: 10/19/14 13:00:00 No Longer Active 09/20/2014 [facility] Vancomycin 1 gm, 200 mL, Route: IVPB, Drug form: INJ, [id number], Dosing Weight 73.636, kg, Start date: 09/19/14 21:00:00, Duration: 30 day, Stop date: 10/19/14 9:00:00Notes: TIME CRITICAL MEDICATION No Longer Active 09/20/2014 [facility] Lovenox 30 mg, 0.3 mL, Route: SUB-Q, Drug form: INJ, [id number], Dosing Weight 73.636, kg, Start date: 09/19/14 21:00:00, Duration: 30 day, Stop date: 10/19/14 9:00:00Notes: (Same as: Lovenox) No Longer Active 09/20/2014 [facility] Dilaudid 1 mg, 1 mL, Route: IV, Drug form: INJ, Q6H, Dosing Weight 73.636, kg, PRN Pain Score 6-10, Start date: 09/19/14 20:48:00, Duration: 30 day, Stop date: 10/19/14 20:47:00 No Longer Active 09/20/2014 [facility] Valium 5 mg, 1 mL, Route: IV, Drug form: INJ, Q6H, Dosing Weight 73.636, kg, PRN Spasm, Start date: 09/19/14 20:42:00, Duration: 30 day, Stop date: 10/19/14 20:41:00Notes: (Same as: Valium) No Longer Active 09/20/2014 [facility] Lunesta 3 mg, Route: PO, Bedtime, Dosing Weight 73.636, kg, PRN as needed for insomnia, Start date: 09/19/14 20:41:00, Duration: 30 day, Stop date: 10/19/14 20:40:00 Inactive 09/20/2014 [facility] Acetaminophen 325 MG / Hydrocodone Bitartrate 7.5 MG Oral Tablet [[place] 7.5/325] 2 tab, Route: PO, Drug Form: TAB, Dosing Weight 73.636, kg, Q6H, PRN Pain Score 7-10, Start date: 09/19/14 20:38:00, Duration: 30 day, Stop date: 10/19/14 20:37:00Notes: Same as [place] 325-7.5mg Do not exceed 4gm/day of acetaminophen. No Longer Active 09/20/2014 [facility] Acetaminophen 325 MG / Hydrocodone Bitartrate 7.5 MG Oral Tablet [[place] 7.5/325] 1 tab, Route: PO, Drug Form: TAB, Dosing Weight 73.636, kg, Q6H, PRN Pain Score 1-5, Start date: 09/19/14 20:37:00, Duration: 30 day, Stop date: 10/19/14 20:36:00Notes: Same as [place] 325-7.5mg Do not exceed 4gm/day of acetaminophen. No Longer Active 09/20/2014 [facility] Dilaudid 1 mg, 1 mL, Route: IV, Drug form: INJ, Q4H, Dosing Weight 73.636, kg, PRN Pain Score 1-5, Start date: 09/19/14 20:36:00, Duration: 30 day, Stop date: 10/19/14 20:35:00 No Longer Active 09/20/2014 [facility] cefepime 1 gm, Route: IVPB, [id number], Dosing Weight 72.273, kg, (CrCl >/=50 ml/min), Start date: 09/12/14 20:00:00, Duration: 30 day, Stop date: 10/12/14 12:00:00Notes: (Same As: Maxipime) MEDICATION WASTE Product Size: 1000 mg Product Wasted: ___ mg No Longer Active 09/13/2014 [facility] Dilaudid 1 mg, 1 mL, Route: IV, Drug form: INJ, Q4H, Dosing Weight 72.273, kg, PRN Pain Score 7-10, Start date: 09/12/14 12:43:00, Duration: 30 day, Stop date: 10/12/14 12:42:00 No Longer Active 09/12/2014 [facility] Acetaminophen 325 MG / Hydrocodone Bitartrate 7.5 MG Oral Tablet [[place] 7.5/325] 2 tab, Route: PO, Drug Form: TAB, Dosing Weight 72.273, kg, Q4H, PRN Pain Score 7-10, Start date: 09/12/14 12:43:00, Duration: 30 day, Stop date: 10/12/14 12:42:00 Inactive 09/12/2014 [facility] pneumococcal capsular polysaccharide type 1 vaccine / pneumococcal capsular polysaccharide type 10A vaccine / pneumococcal capsular polysaccharide type 11A vaccine / pneumococcal capsular polysaccharide type 12F vaccine / pneumococcal capsular polysacchar 0.5 mL, Route: IM, Drug Form: INJ, Daily, Start date: 09/12/14 9:00:00, Duration: 1 doses or times, Stop date: 09/12/14 9:00:00Notes: (Same as: Pneumovax 23) Refrigerate Inactive 09/12/2014 [facility] Lunesta 3 mg, Route: PO, Bedtime, Dosing Weight 72.273, kg, Start date: 09/11/14 21:00:00, Duration: 30 day, Stop date: 10/10/14 21:00:00 Inactive 09/12/2014 [facility] Enoxaparin 30 mg, 0.3 mL, Route: SUB-Q, Drug form: INJ, [id number], Dosing Weight 72.273, kg, Start date: 09/11/14 21:00:00, Duration: 30 day, Stop date: 10/11/14 9:00:00Notes: (Same as: Lovenox) No Longer Active 09/12/2014 [facility] Ambien 5 mg, 1 tab, Route: PO, Drug form: TAB, Bedtime, PRN Sleep, Start date: 09/11/14 17:49:00, Duration: 30 day, Stop date: 10/11/14 17:48:00Notes: (Same As: Ambien) No Longer Active 09/11/2014 [facility] ceFAZolin (SCIP) 1 gm, 100 mL, Route: IVPB, Drug form: INJ, [id number], Dosing Weight 72.273, kg, Start date: 09/11/14 14:00:00, Duration: 3 doses or times, Stop date: 09/12/14 2:00:00 No Longer Active 09/11/2014 [facility] Docusate 100 mg, 1 cap, Route: PO, Drug form: CAP, BID, Dosing Weight 72.273, kg, Start date: 09/11/14 9:00:00, Duration: 30 day, Stop date: 10/10/14 17:00:00Notes: (Same as: Colace) (Do Not Crush) No Longer Active 09/11/2014 [facility] Enoxaparin 30 mg, Route: SUB-Q, Drug form: INJ, [id number], Dosing Weight 72.273, kg, Start date: 09/11/14 9:00:00, Duration: 30 day, Stop date: 10/10/14 21:00:00 Inactive 09/11/2014 [facility] Morphine 4 mg, Route: IVP, Q5Min, Dosing Weight 72.273, kg, PRN Pain Score 7-10, Start date: 09/11/14 8:49:00, Duration: 3 doses or times, Stop date: Limited # of times Inactive 09/11/2014 [facility] Meperidine 12.5 mg, Route: IVP, Q30Min, Dosing Weight 72.273, kg, PRN Other -See Comment, For shivering, Start date: 09/11/14 8:49:00, Duration: 2 doses or times, Stop date: Limited # of times Inactive 09/11/2014 [facility] Diphenhydramine 12.5 mg, Route: IVP, Drug form: INJ, Q6H, Dosing Weight 72.273, kg, PRN Itching, Start date: 09/11/14 8:49:00, Duration: 30 day, Stop date: 10/11/14 8:48:00 Inactive 09/11/2014 [facility] Glycopyrrolate 0.2 mg, Route: IVP, Q5Min, Dosing Weight 72.273, kg, PRN Bradycardia, Start date: 09/11/14 8:49:00, Duration: 3 doses or times, Stop date: Limited # of times Inactive 09/11/2014 [facility] Naloxone 0.04 mg, Route: IVP, Q2MIN, Dosing Weight 72.273, kg, PRN Narcotic Reversal, Start date: 09/11/14 8:49:00, Duration: 8 doses or times, Stop date: Limited # of times Inactive 09/11/2014 [facility] Flumazenil 0.2 mg, Route: IVP, PRN, Dosing Weight 72.273, kg, PRN Benzodiazepine Reversal, Initial dose, Start date: 09/11/14 8:49:00, Duration: 30 day, Stop date: 10/11/14 8:48:00 Inactive 09/11/2014 [facility] Promethazine 6.25 mg, Route: IVPB, ONCE, Dosing Weight 72.273, kg, PRN Nausea & Vomiting, Start date: 09/11/14 8:49:00 Inactive 09/11/2014 [facility] Ondansetron 4 mg, Route: IVP, ONCE, Dosing Weight 72.273, kg, PRN Nausea & Vomiting, Start date: 09/11/14 8:49:00 Inactive 09/11/2014 [facility] Hydromorphone 0.5 mg, Route: IVP, Q5Min, Dosing Weight 72.273, kg, PRN Pain Score 7-10, Start date: 09/11/14 8:49:00, Duration: 4 doses or times, Stop date: Limited # of times Inactive 09/11/2014 [facility] Fentanyl 25 microgram, Route: IVP, Q5Min, Dosing Weight 72.273, kg, PRN Pain Score 4-6, Start date: 09/11/14 8:49:00, Duration: 4 doses or times, Stop date: Limited # of times Inactive 09/11/2014 [facility] Ketorolac 30 mg, Route: IVP, ONCE, Dosing Weight 72.273, kg, Start date: 09/11/14 8:49:00, Duration: 1 doses or times, Stop date: 09/11/14 8:49:00 Inactive 09/11/2014 [facility] Hydralazine 10 mg, Route: IVP, Q20Min, Dosing Weight 72.273, kg, PRN Elevated BP, Start date: 09/11/14 8:49:00, Duration: 2 doses or times, Stop date: Limited # of times Inactive 09/11/2014 [facility] Oxycodone 10 mg, Route: PO, Drug form: TAB, Q4H, Dosing Weight 72.273, kg, PRN Pain Score 7-10, Start date: 09/11/14 8:49:00, Duration: 30 day, Stop date: 10/11/14 8:48:00 Inactive 09/11/2014 [facility] Metoprolol 1 mg, Route: IVP, Q5Min, Dosing Weight 72.273, kg, PRN Other -See Comment, Start date: 09/11/14 8:49:00, Duration: 5 doses or times, Stop date: Limited # of times Inactive 09/11/2014 [facility] Hydromorphone 15 mg, 30 mL, Route: IV, Initial Loading Dose: 0 mg, ANIMAL [place] [place]UNTER Dose: 0.2 mg, ANIMAL [place]TER Lockout: 8 minutes, Continuous Basal Rate: 0 mg, 4 Hour Limit (In MG): 6, Drug Form: INJ, Continuous, Start date: 09/11/14 8 :30:00, Duration: 30 day, Stop date: 10/11/14 8:29:00Notes: (Same as: Dilaudid) conc=0.5 mg/ml Hydromorphone ANIMAL [place]UNTER Dose: ;Delay: ;Basal: No Longer Active 09/11/2014 [facility] Naloxone 0.04 mg, 0.1 mL, Route: IVP, Drug form: INJ, Q2MIN, Dosing Weight 72.273, kg, PRN Narcotic Reversal, Start date: 09/11/14 8:30:00, Duration: 30 day, Stop date: 10/11/14 8:29:00Notes: Same as Narcan No Longer Active 09/11/2014 [facility] Diphenhydramine 12.5 mg, 0.5 tab, Route: PO, Drug form: TAB, Q6H, Dosing Weight 72.273, kg, PRN Itching, Start date: 09/11/14 8:30:00, Duration: 30 day, Stop date: 10/11/14 8:29:00 No Longer Active 09/11/2014 [facility] Al hydroxide/Mg hydroxide/simethicone 200 mg-200 mg-20 mg/5 mL oral suspension 30 mL, Route: PO, Drug Form: SUSP, Dosing Weight 72.273, kg, Q4H, PRN Indigestion, Start date: 09/11/14 8:30:00, Duration: 30 day, Stop date: 10/11/14 8:29:00Notes: (aluminum hydroxide-magnesium hyd-simethicone [phone]/5ml 30 ml ud CANDIS) No Longer Active 09/11/2014 [facility] Ondansetron 4 mg, 2 mL, Route: IVP, Drug form: INJ, Q8H, Dosing Weight 72.273, kg, PRN Nausea & Vomiting, Start date: 09/11/14 8:30:00, Duration: 30 day, Stop date: 10/11/14 8:29:00Notes: (Same as: Daisy) MEDICATION WASTE Product Size: 4 mg Product Wasted: ___ mg No Longer Active 09/11/2014 [facility] Acetaminophen 325 MG / Hydrocodone Bitartrate 7.5 MG Oral Tablet [[place] 7.5/325] 1 tab, Route: PO, Drug Form: TAB, Dosing Weight 72.273, kg, Q4H, PRN Pain Score 4-6, Start date: 09/11/14 8:30:00, Duration: 30 day, Stop date: 10/11/14 8:29:00Notes: Same as [place] 325-7.5mg Do not exceed 4gm/day of acetaminophen. No Longer Active 09/11/2014 [facility] Tylenol 650 mg, 2 tab, Route: PO, Drug form: TAB, Q6H, Dosing Weight 72.273, kg, PRN For Temp > 100.4 F, Start date: 09/11/14 8:30:00, Duration: 30 day, Stop date: 10/11/14 8:29:00Notes: Do not exceed 4 gm/day. (Same as: Tylenol) No Longer Active 09/11/2014 [facility] Lactated Ringers IV 1,000 mL 1,000 mL, Rate: 75 ml/hr, Infuse over: 13.3 hr, Route: IV, Dosing Weight 72.273 kg, Total Volume: 1,000, Start date: 09/11/14 8:30:00, Duration: 30 day, Stop date: 10/11/14 8:29:00 No Longer Active 09/11/2014 [facility] Calcium Chloride 0.0014 MEQ/ML / Potassium Chloride 0.004 MEQ/ML / Sodium Chloride 0.103 MEQ/ML / Sodium Lactate 0.028 MEQ/ML Injectable Solution 1,000 mL, Rate: 25 ml/hr, Infuse over: 40 hr, Route: IV, Dosing Weight 72.273 kg, Total Volume: 1,000, Start date: 09/11/14 8:16:00, Duration: 30 day, Stop date: 10/11/14 8:15:00 Inactive 09/11/2014 [facility] Ancef 2 gm, Route: IVPB, ONCE, Dosing Weight 72.273, kg, Start date: 09/11/14 7:31:00, Duration: 1 doses or times, Stop date: 09/11/14 7:31:00 Inactive 09/11/2014 [facility] Diazepam 5 MG Oral Tablet [Valium] 5 mg=1 tab, PO, QID, PRN Spasm, # 30 tab, 0 Refill(s) Active 09/11/2014 [facility] Cephalexin 500 MG Oral Capsule [Keflex] 500 mg=1 cap, PO, QID, X 10 day, # 40 cap, 0 Refill(s) Active 09/11/2014 [facility] 0.3 ML Enoxaparin sodium 100 MG/ML Prefilled Syringe [Lovenox] 30 mg, SUB-Q, Q12H, X 14 day, # 28 inj, 0 Refill(s) Active 09/11/2014 [facility] Vitamin D3 0 Refill(s) Active 08/30/2014 [facility] doxazosin 4 mg oral tablet 4 mg=1 tab, PO, Daily, # 30 tab, 0 Refill(s) Active 08/30/2014 [facility] celecoxib 200 MG Oral Capsule [Celebrex] 200 mg=1 cap, PO, Daily, # 30 cap, 0 Refill(s) Active 08/30/2014 [facility] Acetaminophen With Codeine (Tylenol With Codeine #3 Tablet) 1 Each Tablet Every 6 Hours for Pain Active [facility] B Complex With Vitamin C (Super B Complex-Vitamin C) 1 Each Tablet Daily Active [facility] Calcium Crb&Cit/D3/Min34/Ric (Citracal + Bone Density Tablet) 1 Each Tablet Active [facility] Celecoxib (Celebrex*) 100 Mg Capsule Daily Active [facility] Cephalexin 500 Mg Capsule Three Times A Day Active [facility] Doxazosin Mesylate 2 Mg Tablet Daily Active [facility] Finasteride 5 Mg Tablet Daily Active [facility] Glucosamine Sulfate 2KCL (Glucosamine) 1,000 Mg Tablet Active [facility] Allergies, Adverse Reactions, Alerts No Known Medication Allergies Immunizations Immunization Date Given Site Status Last Updated Comments Source pneumococcal 23-valent vaccine 09/12/2014 Right deltoid completed [facility] Results Order Name Results Value Reference Range Date Interpretation Comments Source Blood leukocytes automated count (number/volume) 14.32 4.8 - 10.8 05/06/2018 [facility] Blood erythrocytes automated count (number/volume) 4.75 4.3 - 5.7 05/06/2018 [facility] Blood hemoglobin measurement (moles/volume) 13.2 14.0 - 18.0 05/06/2018 [facility] Automated blood hematocrit (volume fraction) 42.4 38.2 - 49.6 05/06/2018 [facility] Automated erythrocyte mean corpuscular volume 89.3 81 - 99 05/06/2018 [facility] Automated erythrocyte mean corpuscular hemoglobin (mass per erythrocyte) 27.8 28 - 32 05/06/2018 [facility] Automated erythrocyte mean corpuscular hemoglobin concentration measurement (mass/volume) 31.1 31 - 35 05/06/2018 [facility] RDW BldCo-Rto 14.3 11.7 - 14.4 05/06/2018 [facility] Automated blood platelet count (count/volume) 213 140 - 360 05/06/2018 [facility] Automated blood segmented neutrophil count as percentage of total leukocytes 90.4 38.7 - 80.0 05/06/2018 [facility] Automated blood lymphocyte count as percentage ot total leukocytes 6.3 18.0 - 39.1 05/06/2018 [facility] Automated blood monocyte count as percentage of total leukocytes 2.9 4.4 - 11.3 05/06/2018 [facility] Automated blood eosinophil count as percentage of total leukocytes 0.0 0.0 - 6.0 05/06/2018 [facility] Automated blood basophil count as percentage of total leukocytes 0.1 0.0 - 1.0 05/06/2018 [facility] IM GRANULOCYTES % 0.3 0.0 - 1.0 05/06/2018 [facility] Automated blood neutrophil count 12.9 2.1 - 6.9 05/06/2018 [facility] Blood lymphocytes count (number/volume) 0.9 1.0 - 3.2 05/06/2018 [facility] Blood monocytes automated count (number/volume) 0.4 0.2 - 0.8 05/06/2018 [facility] Automated blood eosinophil count 0.0 0.0 - 0.4 05/06/2018 [facility] Automated blood basophil count (count/volume) 0.0 0.0 - 0.1 05/06/2018 [facility] Absolute Immature Granulocyte (auto 0.05 0 - 0.1 05/06/2018 [facility] Urine color determination YELLOW YELLOW 05/06/2018 [facility] Urine clarity HAZY CLEAR 05/06/2018 [facility] Specific gravity of Urine by Test strip 1.030 1.010 - 1.025 05/06/2018 [facility] Urine pH measurement by automated test strip 6 5 - 7 05/06/2018 [facility] Urine leukocyte esterase detection by dipstick NEGATIVE NEGATIVE 05/06/2018 [facility] Urine nitrite detection NEGATIVE NEGATIVE 05/06/2018 [facility] Urine protein measurement by test strip (mass/volume) 1+ NEGATIVE 05/06/2018 [facility] Urine glucose detection NEGATIVE NEGATIVE 05/06/2018 [facility] Urine ketones detection by automated test strip TRACE NEGATIVE 05/06/2018 [facility] Urine urobilinogen measurement by test strip (mass/volume) 0.2 0.2 - 1 05/06/2018 [facility] Urine total bilirubin measurement (mass/volume) NEGATIVE NEGATIVE 05/06/2018 [facility] Urine erythrocytes detection 3+ NEGATIVE 05/06/2018 [facility] Automated urine sediment leukocyte count by microscopy (number/high power field) 0-5 0 - 5 05/06/2018 [facility] Erythrocytes detection in urine sediment by light microscopy 11-20 0 - 5 05/06/2018 [facility] Bacteria detection in urine sediment by light microscopy MODERATE NONE 05/06/2018 [facility] Epithelial cells detection in urine sediment by light microscopy RARE NONE 05/06/2018 [facility] Calcium oxalate crystals detection in urine sediment by light microscopy MODERATE FEW 05/06/2018 [facility] Amorphous sediment detection in urine sediment by light microscopy MANY FEW 05/06/2018 [facility] Serum or plasma sodium measurement (moles/volume) 144 136 - 145 05/06/2018 [facility] Serum or plasma potassium measurement (moles/volume) 3.9 3.5 - 5.1 05/06/2018 [facility] Serum or plasma chloride measurement (moles/volume) 107 98 - 107 05/06/2018 [facility] Serum or plasma carbon dioxide, total measurement (moles/volume) 24 22 - 29 05/06/2018 [facility] Serum or plasma anion gap 16.9 8 - 16 05/06/2018 [facility] Serum or plasma urea nitrogen measurement (mass/volume) 17 7 - 26 05/06/2018 [facility] Serum or plasma creatinine measurement (mass/volume) 1.01 0.72 - 1.25 05/06/2018 [facility] Serum or plasma urea nitrogen/creatinine mass ratio 17 6 - 25 05/06/2018 [facility] Estimated glomerular filtration rate (GFR) determination > 60 60 05/06/2018 [facility] Glucose measurement 101 74 - 118 05/06/2018 [facility] Serum or plasma calcium measurement (mass/volume) 9.4 8.4 - 10.2 05/06/2018 [facility] Serum or plasma magnesium measurement (mass/volume) 2.5 1.3 - 2.1 05/06/2018 [facility] Serum or plasma total bilirubin measurement (mass/volume) 0.4 0.2 - 1.2 05/06/2018 [facility] Aspartate Amino Transf (AST/SGOT) 26 5 - 34 05/06/2018 [facility] Serum or plasma alanine aminotransferase measurement (enzymatic activity/volume) 15 0 - 55 05/06/2018 [facility] Serum or plasma protein measurement (mass/volume) 7.2 6.5 - 8.1 05/06/2018 [facility] Serum or plasma albumin measurement (mass/volume) 4.4 3.5 - 5.0 05/06/2018 [facility] Plasma globulin measurement (mass/volume) 2.8 2.3 - 3.5 05/06/2018 [facility] Serum or plasma albumin/globulin mass ratio 1.6 0.8 - 2.0 05/06/2018 [facility] Serum or plasma alkaline phosphatase measurement (enzymatic activity/volume) 44 40 - 150 05/06/2018 [facility] Serum or plasma amylase measurement (enzymatic activity/volume) 104 25 - 125 05/06/2018 [facility] Serum or plasma lipase measurement (enzymatic activity/volume) 37 8 - 78 05/06/2018 [facility] Serum or plasma creatine kinase measurement (enzymatic activity/volume) 85 30 - 200 03/27/2018 [facility] Serum or plasma creatine kinase MB measurement (mass/volume) 2.50 0 - 5.0 03/27/2018 [facility] Troponin I measurement by highly sensitive enzyme immunoassay 0.016 0 - 0.300 03/27/2018 [facility] Serum or plasma creatine kinase measurement (enzymatic activity/volume) 85 30 - 200 03/27/2018 [facility] Serum or plasma creatine kinase MB measurement (mass/volume) 2.50 0 - 5.0 03/27/2018 [facility] Troponin I measurement by highly sensitive enzyme immunoassay 0.016 0 - 0.300 03/27/2018 [facility] Urine color determination YELLOW YELLOW 03/26/2018 [facility] Urine clarity HAZY CLEAR 03/26/2018 [facility] Specific gravity of Urine by Test strip 1.015 1.010 - 1.025 03/26/2018 [facility] Urine pH measurement by automated test strip 7 5 - 7 03/26/2018 [facility] Urine leukocyte esterase detection by dipstick NEGATIVE NEGATIVE 03/26/2018 [facility] Urine nitrite detection NEGATIVE NEGATIVE 03/26/2018 [facility] Urine protein measurement by test strip (mass/volume) NEGATIVE NEGATIVE 03/26/2018 [facility] Urine glucose detection NEGATIVE NEGATIVE 03/26/2018 [facility] Urine ketones detection by automated test strip NEGATIVE NEGATIVE 03/26/2018 [facility] Urine urobilinogen measurement by test strip (mass/volume) 0.2 0.2 - 1 03/26/2018 [facility] Urine total bilirubin measurement (mass/volume) NEGATIVE NEGATIVE 03/26/2018 [facility] Urine erythrocytes detection NEGATIVE NEGATIVE 03/26/2018 [facility] Automated urine sediment leukocyte count by microscopy (number/high power field) 0-5 0 - 5 03/26/2018 [facility] Erythrocytes detection in urine sediment by light microscopy 0-5 0 - 5 03/26/2018 [facility] Bacteria detection in urine sediment by light microscopy FEW NONE 03/26/2018 [facility] Epithelial cells detection in urine sediment by light microscopy FEW NONE 03/26/2018 [facility] Prothrombin time (PT) in platelet poor plasma by coagulation assay 14.7 11.9 - 14.5 03/26/2018 [facility] INR in Platelet poor plasma by Coagulation assay 1.05 03/26/2018 [facility] Activated partial thromboplastin time (aPTT) in platelet poor plasma bycoagulation assay 31.1 23.8 - 35.5 03/26/2018 [facility] BNP Bld-mCnc 83.3 0 - 100 03/26/2018 [facility] Automated erythrocyte mean corpuscular volume 89.0 81 - 99 03/26/2018 [facility] Automated erythrocyte mean corpuscular hemoglobin (mass per erythrocyte) 28.0 28 - 32 03/26/2018 [facility] Automated erythrocyte mean corpuscular hemoglobin concentration measurement (mass/volume) 31.4 31 - 35 03/26/2018 [facility] RDW BldCo-Rto 15.1 11.7 - 14.4 03/26/2018 [facility] Automated blood platelet count (count/volume) 170 140 - 360 03/26/2018 [facility] Automated blood segmented neutrophil count as percentage of total leukocytes 79.8 38.7 - 80.0 03/26/2018 [facility] Automated blood lymphocyte count as percentage ot total leukocytes 14.6 18.0 - 39.1 03/26/2018 [facility] Automated blood monocyte count as percentage of total leukocytes 5.1 4.4 - 11.3 03/26/2018 [facility] Automated blood eosinophil count as percentage of total leukocytes 0.0 0.0 - 6.0 03/26/2018 [facility] Automated blood basophil count as percentage of total leukocytes 0.1 0.0 - 1.0 03/26/2018 [facility] IM GRANULOCYTES % 0.4 0.0 - 1.0 03/26/2018 [facility] Automated blood neutrophil count 5.8 2.1 - 6.9 03/26/2018 [facility] Blood lymphocytes count (number/volume) 1.1 1.0 - 3.2 03/26/2018 [facility] Blood monocytes automated count (number/volume) 0.4 0.2 - 0.8 03/26/2018 [facility] Automated blood eosinophil count 0.0 0.0 - 0.4 03/26/2018 [facility] Automated blood basophil count (count/volume) 0.0 0.0 - 0.1 03/26/2018 [facility] Absolute Immature Granulocyte (auto 0.03 0 - 0.1 03/26/2018 [facility] Prothrombin time (PT) in platelet poor plasma by coagulation assay 14.7 11.9 - 14.5 03/26/2018 [facility] INR in Platelet poor plasma by Coagulation assay 1.05 03/26/2018 [facility] Activated partial thromboplastin time (aPTT) in platelet poor plasma bycoagulation assay 31.1 23.8 - 35.5 03/26/2018 [facility] Serum or plasma sodium measurement (moles/volume) 139 136 - 145 03/26/2018 [facility] Serum or plasma potassium measurement (moles/volume) 4.1 3.5 - 5.1 03/26/2018 [facility] Serum or plasma chloride measurement (moles/volume) 105 98 - 107 03/26/2018 [facility] Serum or plasma carbon dioxide, total measurement (moles/volume) 26 22 - 29 03/26/2018 [facility] Serum or plasma anion gap 12.1 8 - 16 03/26/2018 [facility] Serum or plasma urea nitrogen measurement (mass/volume) 13 7 - 26 03/26/2018 [facility] Serum or plasma creatinine measurement (mass/volume) 0.75 0.72 - 1.25 03/26/2018 [facility] Serum or plasma urea nitrogen/creatinine mass ratio 17 6 - 25 03/26/2018 [facility] Estimated glomerular filtration rate (GFR) determination > 60 60 03/26/2018 [facility] Glucose measurement 95 74 - 118 03/26/2018 [facility] Serum or plasma calcium measurement (mass/volume) 8.7 8.4 - 10.2 03/26/2018 [facility] Serum or plasma total bilirubin measurement (mass/volume) 0.6 0.2 - 1.2 03/26/2018 [facility] Aspartate Amino Transf (AST/SGOT) 24 5 - 34 03/26/2018 [facility] Serum or plasma alanine aminotransferase measurement (enzymatic activity/volume) 22 0 - 55 03/26/2018 [facility] Serum or plasma protein measurement (mass/volume) 6.9 6.5 - 8.1 03/26/2018 [facility] Serum or plasma albumin measurement (mass/volume) 3.8 3.5 - 5.0 03/26/2018 [facility] Plasma globulin measurement (mass/volume) 3.1 2.3 - 3.5 03/26/2018 [facility] Serum or plasma albumin/globulin mass ratio 1.2 0.8 - 2.0 03/26/2018 [facility] Serum or plasma alkaline phosphatase measurement (enzymatic activity/volume) 41 40 - 150 03/26/2018 [facility] BNP Bld-mCnc 83.3 0 - 100 03/26/2018 [facility] IMMUNOLOGY C-REACTIVE PROTEIN 14.5 <=2.9 mg/L 09/24/2014 [facility] Sed Rate 38 0 - 15 09/24/2014 [facility] MCV 88.0 80.0 - 94.0 09/24/2014 [facility] Hct 33.0 42.0 - 54.0 09/24/2014 [facility] Hgb 11.0 14.0 - 18.0 09/24/2014 [facility] RBC 3.74 4.70 - 6.10 09/24/2014 [facility] WBC 10.1 3.7 - 10.4 09/24/2014 [facility] Platelet 321 133 - 450 09/24/2014 [facility] MPV 8.0 7.4 - 10.4 09/24/2014 [facility] MCHC 33.4 32.0 - 36.0 09/24/2014 [facility] RDW 15.9 11.5 - 14.5 09/24/2014 [facility] MCH 29.4 27.0 - 31.0 09/24/2014 [facility] Basophils # 0.1 0.0 - 0.2 09/24/2014 [facility] Monocytes # 0.8 0.0 - 0.8 09/24/2014 [facility] Lymphocytes # 1.7 1.0 - 5.5 09/24/2014 [facility] Segs-Bands # 7.4 1.5 - 8.1 09/24/2014 [facility] Basophils 0.6 0.0 - 1.0 09/24/2014 [facility] HEMATOLOGY Eosinophils 0.4 0.0 - 4.0 09/24/2014 [facility] Monocytes 8.1 2.0 - 12.0 09/24/2014 [facility] Lymphocytes 17.1 20.0 - 40.0 09/24/2014 [facility] Segs 73.8 45.0 - 75.0 09/24/2014 [facility] MPV 7.6 7.4 - 10.4 09/23/2014 [facility] RDW 16.4 11.5 - 14.5 09/23/2014 [facility] Platelet 342 133 - 450 09/23/2014 [facility] MCH 29.1 27.0 - 31.0 09/23/2014 [facility] MCHC 33.0 32.0 - 36.0 09/23/2014 [facility] MCV 88.1 80.0 - 94.0 09/23/2014 [facility] Hct 34.0 42.0 - 54.0 09/23/2014 [facility] Hgb 11.2 14.0 - 18.0 09/23/2014 [facility] RBC 3.86 4.70 - 6.10 09/23/2014 [facility] WBC 11.2 3.7 - 10.4 09/23/2014 [facility] Segs-Bands # 8.6 1.5 - 8.1 09/23/2014 [facility] Basophils 0.6 0.0 - 1.0 09/23/2014 [facility] Eosinophils 0.6 0.0 - 4.0 09/23/2014 [facility] Segs 76.8 45.0 - 75.0 09/23/2014 [facility] Monocytes 7.7 2.0 - 12.0 09/23/2014 [facility] Lymphocytes 14.3 20.0 - 40.0 09/23/2014 [facility] Lymphocytes # 1.6 1.0 - 5.5 09/23/2014 [facility] Basophils # 0.1 0.0 - 0.2 09/23/2014 [facility] Eosinophils # 0.1 0.0 - 0.5 09/23/2014 [facility] Monocytes # 0.9 0.0 - 0.8 09/23/2014 [facility] CHEM PANEL BUN 15 7 - 22 09/21/2014 [facility] CHEM PANEL Glucose Lvl 87 70 - 99 09/21/2014 <sup>4</sup>Interpretive Data: Adult reference range values reflect the clinical guidelines
of the [place] [employer]. [facility] CHEM PANEL CO2 28 24 - 32 09/21/2014 [facility] CHEM PANEL eGFR 91 09/21/2014 <sup>1</sup>Result Comment: The eGFR is calculated using the CKD-EPI formula. In most young, healthy individuals the eGFR will be >90 mL/min/1.73m2. The eGFR declines with age. An eGFR of 60-89 may be normal in some populations, particularly the elderly, for whom the CKD-EPI formula has not been extensively validated. Use of the eGFR is not recommended in the following populations:& lt;br/>
Individuals with unstable creatinine concentrations, including patients [...] should be multiplied by the estimated BMI. [facility] CHEM PANEL Chloride Lvl 103 95 - 109 09/21/2014 [facility] CHEM PANEL Calcium Lvl 8.2 8.5 - 10.5 09/21/2014 [facility] CHEM PANEL Potassium Lvl 3.6 3.5 - 5.1 09/21/2014 [facility] CHEM PANEL Sodium Lvl 139 135 - 145 09/21/2014 [facility] CHEM PANEL Creatinine Lvl 0.8 0.5 - 1.4 09/21/2014 [facility] CHEM PANEL AGAP 11.6 10.0 - 20.0 09/21/2014 [facility] HEMATOLOGY Basophils 0.9 0.0 - 1.0 09/21/2014 [facility] HEMATOLOGY Monocytes 7.1 2.0 - 12.0 09/21/2014 [facility] HEMATOLOGY Eosinophils 2.2 0.0 - 4.0 09/21/2014 [facility] HEMATOLOGY Basophils # 0.1 0.0 - 0.2 09/21/2014 [facility] HEMATOLOGY Eosinophils # 0.3 0.0 - 0.5 09/21/2014 [facility] HEMATOLOGY Segs-Bands # 8.6 1.5 - 8.1 09/21/2014 [facility] HEMATOLOGY Monocytes # 0.8 0.0 - 0.8 09/21/2014 [facility] HEMATOLOGY Lymphocytes # 1.9 1.0 - 5.5 09/21/2014 [facility] HEMATOLOGY Segs 73.2 45.0 - 75.0 09/21/2014 [facility] HEMATOLOGY Lymphocytes 16.6 20.0 - 40.0 09/21/2014 [facility] HEMATOLOGY WBC 11.7 3.7 - 10.4 09/21/2014 [facility] HEMATOLOGY Hgb 10.7 14.0 - 18.0 09/21/2014 [facility] HEMATOLOGY RBC 3.70 4.70 - 6.10 09/21/2014 [facility] HEMATOLOGY Hct 32.8 42.0 - 54.0 09/21/2014 [facility] HEMATOLOGY MPV 7.9 7.4 - 10.4 09/21/2014 [facility] Platelet 360 133 - 450 09/21/2014 [facility] HEMATOLOGY RDW 15.6 11.5 - 14.5 09/21/2014 [facility] MCHC 32.7 32.0 - 36.0 09/21/2014 [facility] MCH 29.0 27.0 - 31.0 09/21/2014 [facility] HEMATOLOGY MCV 88.6 80.0 - 94.0 09/21/2014 [facility] CHEM PANEL Calcium Lvl 8.4 8.5 - 10.5 09/20/2014 [facility] CHEM PANEL AGAP 10.3 10.0 - 20.0 09/20/2014 [facility] CHEM PANEL Chloride Lvl 105 95 - 109 09/20/2014 [facility] CHEM PANEL CO2 28 24 - 32 09/20/2014 [facility] CHEM PANEL eGFR 96 09/20/2014 <sup>2</sup>Result Comment: The eGFR is calculated using the CKD-EPI formula. In most young, healthy individuals the eGFR will be >90 mL/min/1.73m2. The eGFR declines with age. An eGFR of 60-89 may be normal in some populations, particularly the elderly, for whom the CKD-EPI formula has not been extensively validated. Use of the eGFR is not recommended in the following populations:& lt;br/>
Individuals with unstable creatinine concentrations, including patients [...] should be multiplied by the estimated BMI. [facility] CHEM PANEL Creatinine Lvl 0.7 0.5 - 1.4 09/20/2014 [facility] CHEM PANEL Sodium Lvl 139 135 - 145 09/20/2014 [facility] CHEM PANEL Glucose Lvl 96 70 - 99 09/20/2014 <sup>5</sup>Interpretive Data: Adult reference range values reflect the clinical guidelines
of the [place] [employer]. [facility] CHEM PANEL BUN 13 7 - 22 09/20/2014 [facility] CHEM PANEL Potassium Lvl 4.3 3.5 - 5.1 09/20/2014 [facility] HEMATOLOGY Plt Morph Normal (09/20/14 7:13 AM) 09/20/2014 [facility] HEMATOLOGY Eosinophils # 0.4 0.0 - 0.5 09/20/2014 [facility] HEMATOLOGY RBC Morph Normal (09/20/14 7:13 AM) 09/20/2014 [facility] BLOOD BANK RESULTS Antibody Scrn Negative (09/19/14 11:23 PM) 09/20/2014 [facility] BLOOD BANK RESULTS ABO/Rh A POS 09/20/2014 [facility] URINE AND STOOL UA Sq Epi None Seen 09/20/2014 [facility] URINE AND STOOL UA Color Yellow *NA* (09/19/14 10:19 PM) Yellow 09/20/2014 [facility] URINE AND STOOL UA Spec Grav 1.014 <=1.030 09/20/2014 [facility] URINE AND STOOL UA Turbidity Clear (09/19/14 10:19 PM) Clear 09/20/2014 [facility] URINE AND STOOL UA Ketones Negative mg/dL Negative mg/dL 09/20/2014 [facility] URINE AND STOOL UA Glucose Negative mg/dL Negative mg/dL 09/20/2014 [facility] URINE AND STOOL UA Protein Negative mg/dL Negative mg/dL 09/20/2014 [facility] URINE AND STOOL UA pH 7.0 5.0 - 8.0 09/20/2014 [facility] URINE AND STOOL UA Bili Negative *NA* (09/19/14 10:19 PM) Negative 09/20/2014 [facility] URINE AND STOOL UA Leuk Est Negative (09/19/14 10:19 PM) Negative 09/20/2014 [facility] URINE AND STOOL UA Nitrite Negative (09/19/14 10:19 PM) Negative 09/20/2014 [facility] URINE AND STOOL UA Urobilinogen 4.0 0.1 - 1.0 09/20/2014 [facility] URINE AND STOOL UA Blood Negative (09/19/14 10:19 PM) Negative 09/20/2014 [facility] URINE AND STOOL UA WBC 1 0 - 5 09/20/2014 [facility] URINE AND STOOL UA Amorph Karyna Occasional /HPF None Seen /HPF 09/20/2014 [facility] URINE AND STOOL UA Mucus Few /LPF None Seen /LPF 09/20/2014 [facility] URINE AND STOOL UA RBC <1 0 - 2 09/20/2014 [facility] BLOOD BANK RESULTS RBC product Product available (09/19/14 9:46 PM) 09/20/2014 [facility] CHEM PANEL eGFR 87 09/20/2014 <sup>3</sup>Result Comment: The eGFR is calculated using the CKD-EPI formula. In most young, healthy individuals the eGFR will be >90 mL/min/1.73m2. The eGFR declines with age. An eGFR of 60-89 may be normal in some populations, particularly the elderly, for whom the CKD-EPI formula has not been extensively validated. Use of the eGFR is not recommended in the following populations:& lt;br/>
Individuals with unstable creatinine concentrations, including patients [...] should be multiplied by the estimated BMI. [facility] CHEM PANEL Creatinine Lvl 0.9 0.5 - 1.4 09/20/2014 [facility] CHEM PANEL BUN 16 7 - 22 09/20/2014 [facility] CHEM PANEL Sodium Lvl 142 135 - 145 09/20/2014 [facility] CHEM PANEL Potassium Lvl 4.3 3.5 - 5.1 09/20/2014 [facility] CHEM PANEL Chloride Lvl 106 95 - 109 09/20/2014 [facility] CHEM PANEL CO2 29 24 - 32 09/20/2014 [facility] CHEM PANEL AGAP 11.3 10.0 - 20.0 09/20/2014 [facility] CHEM PANEL Calcium Lvl 8.1 8.5 - 10.5 09/20/2014 [facility] CHEM PANEL Glucose Lvl 93 70 - 99 09/20/2014 <sup>6</sup>Interpretive Data: Adult reference range values reflect the clinical guidelines
of the [place] [employer]. [facility] HEMATOLOGY Sed Rate 60 0 - 15 09/20/2014 [facility] IMMUNOLOGY C-REACTIVE PROTEIN 40.0 <=2.9 mg/L 09/20/2014 [facility] HEMATOLOGY Basophils 0.3 0.0 - 1.0 09/13/2014 [facility] HEMATOLOGY Lymphocytes # 1.0 1.0 - 5.5 09/13/2014 [facility] HEMATOLOGY Segs-Bands # 10.5 1.5 - 8.1 09/13/2014 [facility] HEMATOLOGY Monocytes # 0.9 0.0 - 0.8 09/13/2014 [facility] HEMATOLOGY Lymphocytes 8.1 20.0 - 40.0 09/13/2014 [facility] HEMATOLOGY Segs 84.6 45.0 - 75.0 09/13/2014 [facility] HEMATOLOGY Monocytes 7.0 2.0 - 12.0 09/13/2014 [facility] HEMATOLOGY MPV 8.7 7.4 - 10.4 09/13/2014 [facility] HEMATOLOGY WBC 12.4 3.7 - 10.4 09/13/2014 [facility] HEMATOLOGY Hgb 8.9 14.0 - 18.0 09/13/2014 [facility] HEMATOLOGY RBC 3.11 4.70 - 6.10 09/13/2014 [facility] HEMATOLOGY MCV 85.7 80.0 - 94.0 09/13/2014 [facility] HEMATOLOGY Hct 26.7 42.0 - 54.0 09/13/2014 [facility] HEMATOLOGY MCH 28.7 27.0 - 31.0 09/13/2014 [facility] HEMATOLOGY MCHC 33.5 32.0 - 36.0 09/13/2014 [facility] HEMATOLOGY RDW 13.8 11.5 - 14.5 09/13/2014 [facility] HEMATOLOGY Platelet 123 133 - 450 09/13/2014 [facility] HEMATOLOGY Monocytes 7.2 2.0 - 12.0 09/12/2014 [facility] HEMATOLOGY Segs-Bands # 10.1 1.5 - 8.1 09/12/2014 [facility] HEMATOLOGY Basophils 0.4 0.0 - 1.0 09/12/2014 [facility] HEMATOLOGY Eosinophils 0.1 0.0 - 4.0 09/12/2014 [facility] HEMATOLOGY Lymphocytes 8.5 20.0 - 40.0 09/12/2014 [facility] HEMATOLOGY Monocytes # 0.9 0.0 - 0.8 09/12/2014 [facility] HEMATOLOGY Lymphocytes # 1.0 1.0 - 5.5 09/12/2014 [facility] HEMATOLOGY Segs 83.8 45.0 - 75.0 09/12/2014 [facility] HEMATOLOGY MPV 8.8 7.4 - 10.4 09/12/2014 [facility] HEMATOLOGY Platelet 126 133 - 450 09/12/2014 [facility] RDW 13.7 11.5 - 14.5 09/12/2014 [facility] Hgb 10.5 14.0 - 18.0 09/12/2014 [facility] RBC 3.65 4.70 - 6.10 09/12/2014 [facility] WBC 12.1 3.7 - 10.4 09/12/2014 [facility] Hct 31.4 42.0 - 54.0 09/12/2014 [facility] MCHC 33.4 32.0 - 36.0 09/12/2014 [facility] MCH 28.7 27.0 - 31.0 09/12/2014 [facility] MCV 86.1 80.0 - 94.0 09/12/2014 [facility] CHEM PANEL Creatinine Lvl 0.8 0.5 - 1.4 09/12/2014 [facility] CHEM PANEL eGFR 91 09/12/2014 <sup>1</sup>Result Comment: The eGFR is calculated using the CKD-EPI formula. In most young, healthy individuals the eGFR will be >90 mL/min/1.73m2. The eGFR declines with age. An eGFR of 60-89 may be normal in some populations, particularly the elderly, for whom the CKD-EPI formula has not been extensively validated. Use of the eGFR is not recommended in the following populations:& lt;br/>
Individuals with unstable creatinine concentrations, including patients [...] should be multiplied by the estimated BMI. [facility] Platelet 127 133 - 450 09/12/2014 [facility] PTT 35.4 22.9 - 35.8 09/12/2014 <sup>6</sup>Interpretive Data: Heparin Therapeutic Range: 57 - 92 Seconds [facility] INR 1.33 0.85 - 1.17 09/12/2014 <sup>4</sup>Interpretive Data: RECOMMENDED RANGES FOR PROTIME INR:
2.0-3.0 for most medical and surgical thromboembolic states.
2.5-3.5 for artificial heart valves and recurrent embolism.

INR SHOULD BE USED ONLY FOR PATIENTS ON STABLE ANTICOAGULANT THERAPY. [facility] HEMATOLOGY PT 16.6 12.0 - 14.7 09/12/2014 [facility] BLOOD BANK RESULTS ABO/Rh A POS 09/11/2014 [facility] BLOOD BANK RESULTS Antibody Scrn Negative (09/11/14 5:43 AM) 09/11/2014 [facility] URINE AND STOOL UA Urobilinogen <=1.0 mg/dL 0.1 - 1.0 08/30/2014 [facility] URINE AND STOOL UA Color Ltyellow 08/30/2014 [facility] URINE AND STOOL UA Sq Epi None Seen 08/30/2014 [facility] URINE AND STOOL UA Protein Negative mg/dL Negative mg/dL 08/30/2014 [facility] URINE AND STOOL UA Glucose Negative mg/dL Negative mg/dL 08/30/2014 [facility] URINE AND STOOL UA pH 5.0 5.0 - 8.0 08/30/2014 [facility] URINE AND STOOL UA RBC 2 0 - 2 08/30/2014 [facility] URINE AND STOOL UA WBC <1 0 - 5 08/30/2014 [facility] URINE AND STOOL UA Leuk Est Negative (08/30/14 8:59 AM) Negative 08/30/2014 [facility] URINE AND STOOL UA Nitrite Negative (08/30/14 8:59 AM) Negative 08/30/2014 [facility] URINE AND STOOL UA Bili Negative *NA* (08/30/14 8:59 AM) Negative 08/30/2014 [facility] URINE AND STOOL UA Blood Negative (08/30/14 8:59 AM) Negative 08/30/2014 [facility] URINE AND STOOL UA Ketones Negative mg/dL Negative mg/dL 08/30/2014 [facility] URINE AND STOOL UA Turbidity Clear (08/30/14 8:59 AM) Clear 08/30/2014 [facility] URINE AND STOOL UA Spec Grav 1.017 <=1.030 08/30/2014 [facility] BLOOD BANK RESULTS ABO/Rh A POS 08/30/2014 [facility] BLOOD BANK RESULTS Antibody Scrn Negative (08/30/14 8:57 AM) 08/30/2014 [facility] CHEM PANEL eGFR 96 08/30/2014 <sup>2</sup>Result Comment: The eGFR is calculated using the CKD-EPI formula. In most young, healthy individuals the eGFR will be >90 mL/min/1.73m2. The eGFR declines with age. An eGFR of 60-89 may be normal in some populations, particularly the elderly, for whom the CKD-EPI formula has not been extensively validated. Use of the eGFR is not recommended in the following populations:& lt;br/>
Individuals with unstable creatinine concentrations, including patients [...] should be multiplied by the estimated BMI. [facility] CHEM PANEL Chloride Lvl 109 95 - 109 08/30/2014 [facility] CHEM PANEL Calcium Lvl 8.8 8.5 - 10.5 08/30/2014 [facility] CHEM PANEL Creatinine Lvl 0.7 0.5 - 1.4 08/30/2014 [facility] CHEM PANEL Sodium Lvl 143 135 - 145 08/30/2014 [facility] CHEM PANEL CO2 25 24 - 32 08/30/2014 [facility] CHEM PANEL Potassium Lvl 4.1 3.5 - 5.1 08/30/2014 [facility] CHEM PANEL BUN 15 7 - 22 08/30/2014 [facility] CHEM PANEL Glucose Lvl 79 70 - 99 08/30/2014 <sup>3</sup>Interpretive Data: Adult reference range values reflect the clinical guidelines
of the [place] [employer]. [facility] CHEM PANEL AGAP 13.1 10.0 - 20.0 08/30/2014 [facility] HEMATOLOGY INR 1.13 0.85 - 1.17 08/30/2014 <sup>5</sup>Interpretive Data: RECOMMENDED RANGES FOR PROTIME INR:
2.0-3.0 for most medical and surgical thromboembolic states.
2.5-3.5 for artificial heart valves and recurrent embolism.

INR SHOULD BE USED ONLY FOR PATIENTS ON STABLE ANTICOAGULANT THERAPY. [facility] HEMATOLOGY PT 14.6 12.0 - 14.7 08/30/2014 [facility] PTT 32.7 22.9 - 35.8 08/30/2014 <sup>7</sup>Interpretive Data: Heparin Therapeutic Range: 57 - 92 Seconds [facility] MPV 9.2 7.4 - 10.4 08/30/2014 [facility] MCV 86.7 80.0 - 94.0 08/30/2014 [facility] MCH 28.4 27.0 - 31.0 08/30/2014 [facility] WBC 4.9 3.7 - 10.4 08/30/2014 [facility] RDW 13.9 11.5 - 14.5 08/30/2014 [facility] MCHC 32.7 32.0 - 36.0 08/30/2014 [facility] Hct 41.6 42.0 - 54.0 08/30/2014 [facility] RBC 4.80 4.70 - 6.10 08/30/2014 [facility] Hgb 13.6 14.0 - 18.0 08/30/2014 [facility] Lymphocytes 25.3 20.0 - 40.0 08/30/2014 [facility] Lymphocytes # 1.2 1.0 - 5.5 08/30/2014 [facility] Eosinophils 0.2 0.0 - 4.0 08/30/2014 [facility] Monocytes 6.7 2.0 - 12.0 08/30/2014 [facility] Monocytes # 0.3 0.0 - 0.8 08/30/2014 [facility] Basophils 0.7 0.0 - 1.0 08/30/2014 [facility] Segs-Bands # 3.3 1.5 - 8.1 08/30/2014 [facility] Segs 67.1 45.0 - 75.0 08/30/2014 [facility] BLOOD BANK RESULTS RBC product Product available (08/30/14 8:36 AM) 08/30/2014 [facility] Free thyroxine index 1.6541 1.4 - 3.8 [facility] Serum or plasma thyroxine (T4) measurement (mass/volume) 4.96 4.5 - 10.9 [facility] Serum or plasma triiodothyronine resin uptake (T3RU) 33.35 22.5 - 37.0 [facility] Serum or plasma thyrotropin measurement by detection limit <=0.005 miu/l (units/volume) 1.676 0.350 - 4.940 [facility] Free thyroxine index 1.6541 1.4 - 3.8 [facility] Serum or plasma thyroxine (T4) measurement (mass/volume) 4.96 4.5 - 10.9 [facility] Serum or plasma triiodothyronine resin uptake (T3RU) 33.35 22.5 - 37.0 [facility] Serum or plasma thyrotropin measurement by detection limit <=0.005 miu/l (units/volume) 1.676 0.350 - 4.940 [facility] Pathology Reports No Data Provided for This Section Diagnostic Reports Report Value Date Source Chest 2 views DX Examination: Chest x-ray, 2 views History: Fever Comparison: None. Findings: The lungs are clear and without focal consolidation. The cardiomediastinal silhouette is within normal limits. No pleural effusion or pneumothorax is seen. Degenerative changes of the thoracic spine are present. IMPRESSION: No acute cardiopulmonary disease. SL: 16 09/20/2014 [facility] Ext Lower Venous Doppler Unilat US NAME: ANKUR ALVARADO : 1945 SEX: M Ordering Physician: Mehdi Liu Left lower extremity venous Doppler US : [...] the left popliteal vein. SL: 14 09/18/2014 [facility] Knee 1-2 Views unilateral DX Examination: Left [...] left total knee arthroplasty. SL: 16 09/11/2014 [facility] Consultation Notes No Data Provided for This Section Discharge Summaries No Data Provided for This Section History and Physicals No Data Provided for This Section Vital Signs Vital Sign Value Date Comments Source Temperature Oral (F) 99.1 F 09/24/2014 [facility] Heart Rate 103 09/24/2014 [facility] Systolic (mm Hg) 142 09/24/2014 [facility] Diastolic (mm Hg) 75 09/24/2014 [facility] Respitory Rate 16 09/24/2014 [facility] Weight 73.63 09/24/2014 [facility] BMI Calculated 27.01 09/24/2014 [facility] Height 165.1 cm 09/24/2014 [facility] Temperature Oral (F) 98.2 F 09/24/2014 [facility] Heart Rate 80 09/24/2014 [facility] Systolic (mm Hg) 110 09/24/2014 [facility] Diastolic (mm Hg) 80 09/24/2014 [facility] Respitory Rate 18 09/24/2014 [facility] Systolic (mm Hg) 120 09/24/2014 [facility] Diastolic (mm Hg) 76 09/24/2014 [facility] Respitory Rate 16 09/24/2014 [facility] Temperature Oral (F) 97.8 F 09/24/2014 [facility] Heart Rate 77 09/24/2014 [facility] Height 165.1 cm 09/19/2014 [facility] Weight 73.636 09/19/2014 [facility] BMI Calculated 27.01 09/19/2014 [facility] Respitory Rate 22 09/13/2014 [facility] Heart Rate 103 09/13/2014 [facility] Temperature Oral (F) 98.6 F 09/13/2014 [facility] Respitory Rate 14 09/13/2014 [facility] Systolic (mm Hg) 162 09/13/2014 [facility] Diastolic (mm Hg) 75 09/13/2014 [facility] Systolic (mm Hg) 146 09/13/2014 [facility] Diastolic (mm Hg) 79 09/13/2014 [facility] Heart Rate 83 09/13/2014 [facility] Respitory Rate 18 09/13/2014 [facility] Temperature Oral (F) 98.9 F 09/13/2014 [facility] Systolic (mm Hg) 155 09/13/2014 [facility] Diastolic (mm Hg) 71 09/13/2014 [facility] Temperature Oral (F) 98 F 09/13/2014 [facility] Heart Rate 76 09/13/2014 [facility] Weight 72.273 08/30/2014 [facility] BMI Calculated 26.51 08/30/2014 [facility] Height 165.1 cm 08/30/2014 [facility] Encounters Location Location Details Encounter Type Encounter Number Reason For Visit Attending Provider ADM Date DC Date Status Source [facility] Inpatient [id number] Mehdi Liu 09/11/2014 09/13/2014 [facility] OP Therapy Patients [id number] Mehdi Liu 09/14/2014 10/14/2014 [facility] OP Therapy Patients [id number] Mehdi Liu 09/18/2014 10/18/2014 [facility] [id number] Mehdi Liu 09/19/2014 09/24/2014 [facility] OP Therapy Patients [id number] Mehdi Liu 10/19/2014 11/18/2014 [facility] [id number] Mehdi Liu 11/19/2014 12/19/2014 [facility] OP Therapy Patients [id number] Mehdi Liu 12/24/2014 01/23/2015 [facility] Discharged Inpatient [id number] ERICK AGOSTO MD 03/26/2018 03/29/2018 [facility] Departed Emergency Room [id number] CHERY ROBERTSON MD 05/06/2018 05/07/2018 [facility] Procedures Procedure Code Date Perfomer Comments Source Computed tomography of abdomen and pelvis with contrast [id number] 05/06/2018 [facility] INSERT PACE. DUAL CARMINE IN CHEST SUBCU/FASCIA, OPEN [id number] 03/28/2018 [facility] INSERTION OF PACEMAKER LEAD INTO RIGHT ATRIUM, PERC APPROACH [id number] 03/28/2018 [facility] INSERTION OF PACEMAKER LEAD INTO R VENTRICLE, PERC APPROACH [id number] 03/28/2018 [facility] Meniscectomy of knee [id number] [facility] Meniscectomy of knee [id number] [facility] Meniscectomy of knee [id number] [facility] Assessment and Plan Assessment and Plan Date Source Extracted from:Title: Clinical Document Author: Thiago Roberto MD Date: 09/24/14 Ifectious Disease Progress Note [facility] Dr. hTiago Roberto SUBJECTIVE Events reviewed. Met with the family/ OBJECTIVE Gen: alert, no acute distress, follow command HEENT: not pale, not icteric, normal cephalic, Neck: Supple, no jvd, CV: S1, S2, no murmurs Lung: clear bilateral course BS Abd: soft, bowel sound normal, no tenderness Ext: no edema Skin: no rash Neuro: no seizure, no local finding Vitals and Temp: Vitals Tmp(F) Pulse BP RR SpO2 FIO2 09/24 08:00 99.1 103 142/75 16 97 --- 09/24 04:00 98.2 80 110/80 18 97 --- 09/24 00:07 97.8 77 120/76 16 --- --- 09/23 20:23 98.0 78 112/71 18 98 --- 09/23 17:02 ---- 82 158/84 16 100 --- 24 Hr Tmax: 99.1F (37.28c) at 09/24 08:00 Vital Signs are the last 5 in the past 48 hours. Input/Output Record In Out Bal 09/24 24hr Tot 400 0 400 09/23 24hr Tot 450 0 450 Physical Exam Labs (Last four charted values) WBC 10.1 (SEP 24) H 11.2 (SEP 23) H 11.7 (SEP 21) H 12.1 (SEP 20) Hgb L 11.0 (SEP 24) L 11.2 (SEP 23) L 10.7 (SEP 21) L 11.2 (SEP 20) Hct L 33.0 (SEP 24) L 34.0 (SEP 23) L 32.8 (SEP 21) L 33.6 (SEP 20) Plt 321 (SEP 24) 342 (SEP 23) 360 (SEP 21) 361 (SEP 20) Na 139 (SEP 21) 139 (SEP 20) 142 (SEP 19) K 3.6 (SEP 21) 4.3 (SEP 20) 4.3 (SEP 19) CO2 28 (SEP 21) 28 (SEP 20) 29 (SEP 19) Cl 103 (SEP 21) 105 (SEP 20) 106 (SEP 19) Cr 0.8 (SEP 21) 0.7 (SEP 20) 0.9 (SEP 19) BUN 15 (SEP 21) 13 (SEP 20) 16 (SEP 19) Glucose Random 87 (SEP 21) 96 (SEP 20) 93 (SEP 19) Ca L 8.2 (SEP 21) L 8.4 (SEP 20) L 8.1 (SEP 19) Medications Scheduled Meds (2):enoxaparin (Lovenox), vancomycin Unscheduled Meds: None PRN Meds (7):acetaminophen-hydrocodone ([place] 7.5/325 oral tablet), acetaminophen-hydrocodone ([place] 7.5/325 oral tablet), diazepam (Valium), diphenhydrAMINE, hydromorphone (Dilaudid), hydromorphone (Dilaudid), zolpidem (Ambien) One Time Meds: None Continuous Infusions: None ALL LABS REVIEW AND ALL RADIOLOGY REPORTS REVIEWED IMPRESSION LLE dermatits better PLAN ok to dc home Extracted from:Title: Clinical Document Author: Mehdi Liu Date: 09/19/14 [...] Will go ahead and reconcile Dr. Ruba Agosto, who had seen him before, and get [...] and clindamycin. We will consult Dr. 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 Please f/u with the urologist provided 05/07/2018 [facility] Discharge Date 03/29/18 6:09pm Disposition HOME, SELF-CARE Instructions/Education Provided Pacemaker Post Operative Pain Prescriptions See Medication Section Referrals HARSHAD BOO MD (Cardiology) Order Date: 2 Weeks Entered Date: 03/29/2018 5:54pm Address: [address] [id number] KEYLA LLAMAS MD (Cardiology) Order Date: 05/10/2018 Entered Date: 03/29/2018 5:54pm Address: [address] [place] [address] [place] [address] Additional Instructions/Education Please keep arm in sling. Bruising is normal for the new site of the pacemaker. Do not lift or push or pull with the left arm. Do not raise arm any higher than the shoulder. No more activity than what's called for to dress yourself. Follow up with Dr. Tyesha Mcnamara in 2 weeks. Follow up with Dr. Art in 6-8 weeks. Follow up with Dr. Agosto in 1 week. Keep dressing clean and dry. Do not remove dressing. Signs of infection include fever, pain in the left arm, any drainage or oozing from the site. Please finish all antibiotics. No driving while taking any pain medication. 03/29/2018 [facility] Social History Social History Date Source Social History Problem Response Recorded Date/Time Onset Date Status Hx Psychiatric Problems No 09/05/2010 3:57am Not Applicable Not Applicable Hx Eating Disorder No 08/15/2010 12:50pm Not Applicable Not Applicable Hx Depression No 08/15/2010 12:50pm Not Applicable Not Applicable Hx Alcohol Use Y - rarely 09/05/2014 7:07am Not Applicable Not Applicable Hx Substance Use Treatment No 08/15/2010 12:50pm Not Applicable Not Applicable Smoking Status Start Date Stop Date Never Smoker 05/07/2018 [facility] Social History TypeResponse Alcohol Never Smoking Status Never smoker; Exposure to Tobacco Smoke None; Cigarette Smoking Last 365 Days No; Reg Smoking Cessation Counseling No 09/20/2014 [facility] Social History TypeResponse Alcohol Never Smoking Status Never smoker; Exposure to Tobacco Smoke None; Cigarette Smoking Last 365 Days No; Reg Smoking Cessation Counseling No 09/20/2014 [facility] Social History TypeResponse Alcohol Never Smoking Status Never smoker; Exposure to Tobacco Smoke None; Cigarette Smoking Last 365 Days No; Reg Smoking Cessation Counseling No 09/20/2014 [facility] Family History No Data Provided for This Section Advance Directives Order Name Results Value Date Source Advance Directives Advance Directives Directive Response Recorded Date/Time Does the patient have an advance directive? No 03/26/18 10:00pm If yes, is advance directive on file with [facility]? No 03/26/18 10:00pm If not on file with [facility] will patient provide a copy? No 03/26/18 10:00pm Do you have a Directive to Physician? No 05/07/18 1:42am Do you have a Medical Power of Superintendent Sales? No 05/07/18 1:42am Do you have an out of hospital Do Not Resuscitate Order? No 05/07/18 1:42am Do you have any special needs we should be aware of? No 05/07/18 1:42am Do you have a support person here with you today? Yes 05/07/18 1:42am Did patient receive Notice of Privacy Practices? Yes 05/07/18 1:42am Did patient receive patient rights and responsibilities? Yes 05/07/18 1:42am 05/07/2018 [facility] Advance Directives Advance Directives Directive Response Recorded Date/Time Does the patient have an advance directive? No 03/26/18 10:00pm If yes, is advance directive on file with [facility]? No 03/26/18 10:00pm If not on file with [facility] will patient provide a copy? No 03/26/18 10:00pm Do you have a Directive to Physician? No 03/26/18 5:16pm Do you have a Medical Power of Superintendent Sales? No 03/26/18 5:16pm Do you have an out of hospital Do Not Resuscitate Order? No 03/26/18 5:16pm Do you have any special needs we should be aware of? No 03/26/18 5:16pm Do you have a support person here with you today? Yes 03/26/18 5:16pm Did patient receive Notice of Privacy Practices? Yes 03/26/18 5:16pm Did patient receive patient rights and responsibilities? Yes 03/26/18 5:16pm 03/29/2018 [facility] Functional Status No Data Provided for This Section
[2018-10-17 09:05] VITALS: BP 113/70
--- NOTE | 2018-10-17 10:49 | Operative Report ---
DATE OF PROCEDURE: 10/17/2018 SURGEON: Alexander Corea MD PROCEDURE: Colonoscopy and polypectomy. INDICATIONS FOR COLONOSCOPY: Surveillance colonoscopy, personal history of colon polyps. MEDICATIONS: The patient was done under MAC, please see anesthesiologist's note. PROCEDURE IN DETAIL: With the patient in left lateral decubitus position, flexible fiberoptic Olympus colonoscope was inserted into the rectum with ease and advanced all the way to the cecum. The scope was then withdrawn slowly, mucosa overlying the cecum, ascending colon, and transverse colon appeared to be within normal limits. One polyp was snared from the descending colon. Diverticular disease was noted to involve the distal descending and the sigmoid colon. A focal area of diverticulitis was noted in the sigmoid colon. The rectum appeared to be within normal limits. The scope was then retroflexed into the distal rectum. Small internal hemorrhoids were noted, none of which was actively bleeding. The scope was then straightened out, it was subsequently withdrawn. The patient tolerated the procedure well. IMPRESSION: 1. Descending colon polyp, snared. 2. Diverticulosis. 3. Focal diverticulitis, sigmoid colon. 4. Internal hemorrhoids, none actively bleeding. PLAN: Follow up histology. Initiate high-fiber, low-fat diet. Initiate high-fiber supplement. We will give a 10 day course of Flagyl and Levaquin. The patient might benefit from a followup colonoscopy in 5 years. Alexander Corea MD [facility] /[id number] cc: Virginia Rosales MD
== END | disposition home or self-care (01) ==
LOC: OR 05:45
PROVIDERS: ATTEND Internal Medicine Gastroenterology
DX: Z09 Encounter for follow-up examination after completed treatment for conditions other than malignant neoplasm (principal); D12.4 Benign neoplasm of descending colon; K57.32 Diverticulitis of large intestine without perforation or abscess without bleeding; K64.8 Other hemorrhoids; I49.5 Sick sinus syndrome; N40.0 Benign prostatic hyperplasia without lower urinary tract symptoms; N20.0 Calculus of kidney; G47.33 Obstructive sleep apnea (adult) (pediatric); M19.90 Unspecified osteoarthritis, unspecified site; Z01.810 Encounter for preprocedural cardiovascular examination; Z01.812 Encounter for preprocedural laboratory examination; Z95.0 Presence of cardiac pacemaker
CPT/HCPCS: 36415; 45385; 85025; 88305; 93005; J1610; J2250; J2704; J3010; 45378

== ENCOUNTER → 2019-03-03 | Outpatient (CLI) | payer MEDICARE ==
[~2019-03-03] MED LIST changes: -FENTANYL CITRATE/PF 100MCG/2 ML INJ ONE; -GLUCAGON FOR INJ 1 MG VIAL ONE; -HYOSCYAMINE 0.125 MG TAB ONE; -MIDAZOLAM HCL 2 MG/2 ML VIAL ONE; -PROPOFOL IV EMULSION 10 MG/ML 50 ML VIAL ONE
--- NOTE | 2019-03-03 11:17 | Diagnostic Imaging Report ---
Exam: KUB - 2 views Clinical History: Renal cyst, renal calculus. Comparison: CT Abdomen/Pelvis 07/06/18. Findings: Previously noted left lower stone is not well seen by radiograph. No evidence of nephrolithiasis. Nonobstructive bowel gas pattern. No evidence of free intraperitoneal air. No acute bony abnormality. Partially seen pacemaker leads. Impression: No evidence of nephrolithiasis. Previously noted left lower stone on CT is not well seen by radiograph. Signed by: Dr. Mike Pastrana MD on 03/03/2019 11:13 AM
--- NOTE | 2019-03-03 11:35 | Diagnostic Imaging Report ---
Ultrasound of the Kidneys, 03/03/2019. Clinical History: Renal cyst, renal calculus Comparison CT the abdomen and pelvis dated 07/06/2018. Discussion: Sonographic evaluation of the kidneys is performed. Right kidney: 10.3 cm in length, normal in size, with cortical thickness of 1.2 cm. Normal cortical echogenicity. No mass. No shadowing calculus. No hydronephrosis. Left kidney: 10.8 cm in length, normal in size, with cortical thickness of 2.1 cm. Normal cortical echogenicity. 3 anechoic cysts are identified measuring 1.4 x 1.4 x 1.2 cm and 1.1 x 1.3 x 1.5 cm in the upper pole and 2.8 x 2.1 x 2.7 cm in the lower pole.. No shadowing calculus. No hydronephrosis. Limited Doppler evaluation demonstrates normal color Doppler flow within bilateral renal patricio. Fluid: No perinephric fluid. Bladder: Unremarkable. IMPRESSION: 1. 3 simple left renal cysts. 2. No shadowing renal calculi are identified. Signed by: Eh Sebastian MD on 03/03/2019 11:32 AM
== END ==
LOC: US 09:47
PROVIDERS: ATTEND Urology
DX: N20.0 Calculus of kidney (principal)
CPT/HCPCS: 74018; 76770